=== PATIENT | female | born 1995 | race Caucasian/White ===

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

== ENCOUNTER 2017-06-16 17:04 | Emergency (ER) | payer MEDICAID ==
--- NOTE | 2017-06-16 19:33 | ED Physician Documentation ---
PD HPI ABD PAIN - Stated complaint Stated Complaint: N/V/ABD PX - Chief complaint Chief Complaint: Abd Pain - History obtained from History obtained from: Patient - History of Present Illness Timing - onset: How many days ago (8) Timing - duration: Days (8) Timing - details: Gradual onset, Still present, Waxing and waning Quality: Cramping, Aching, Pain Location: Epigastric, Periumbilical Radiation: Chest (some heartburn to chest with vomiting.). No: Lower back, Upper back Improved by: No: Eating, Vomiting Worsened by: Eating Associated symptoms: Nausea, Vomiting, Chest pain, Loss of appetite. No: Fever , Diarrhea, Constipation, Dysuria, Hematuria, Weight loss Similar symptoms before: Diagnosis (gastritis Dx but not improved with ranitidine and then changed to Prilosec yesterday. Rx Zofran without improvement.) Recently seen: Emergency Dept (few visits for IV fluids and meds.) Review of Systems Constitutional: denies: Fever, Chills Nose: denies: Rhinorrhea / runny nose, Congestion Throat: denies: Sore throat Respiratory: denies: Dyspnea, Cough GI: reports: Abdominal Pain (supraumbilical and epigastric), Nausea, Vomiting. denies: Abdominal Swelling, Diarrhea, Hematemesis : denies: Dysuria, Frequency, Discharge, Missed period Skin: denies: Rash Musculoskeletal: denies: Neck pain, Back pain Neurologic: reports: Generalized weakness. 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 : None HEENT: None Psych: None Musculoskeletal: None Derm: None - Past Surgical History Past Surgical History: No - Present Medications Home Medications: Ambulatory Orders Medication Instructions Recorded Confirmed Lidocaine Viscous 2% [Xylocaine 5 ml PO Q4H PRN #1 bottle 06/16/17 Viscous 2%] Metoclopramide [Reglan] 10 mg PO Q6H PRN #20 tablet 06/16/17 Omeprazole 20 mg PO BID 06/16/17 06/16/17 Promethazine Supp [Phenergan Supp] 25 mg [place] Q6H PRN #6 supp 06/16/17 Sucralfate 1 gm PO QID #20 tablet 06/16/17 Sulfamethox/Trimeth 800/160 1 tab PO BID 06/16/17 06/16/17 [Bactrim Ds] Ondansetron Odt [Zofran] 4 mg TL Q6H PRN #10 tablet 06/17/17 - Allergies Allergies/Adverse Reactions: Allergies Allergy/AdvReac Type Severity Reaction Status Date / Time No Known Drug Allergies Allergy Verified 06/16/17 17:16 - Social History Does the pt smoke?: No Smoking Status: Never smoker Does the pt drink ETOH?: No Does the pt have substance abuse?: No - Immunizations Immunizations are current?: Yes - POLST Patient has POLST: No PD ED PE NORMAL - Vitals Vital signs reviewed: Yes - General General: Alert and oriented X 3, Well developed/nourished - HEENT HEENT: PERRL (nonicteric), Ears normal, Pharynx benign. No: Moist mucous membranes - Neck Neck: Supple, no meningeal sign, No adenopathy - Cardiac Cardiac: RRR, No murmur - Respiratory Respiratory: Clear bilaterally - Abdomen Abdomen: Normal bowel sounds, Soft, Non distended, No organomegaly, Other ( tender epigastric area) - Female Female : Deferred - Rectal Rectal: Deferred - Back Back: No CVA TTP - Derm Derm: Normal color, Warm and dry - Extremities Extremities: Normal ROM s pain, No edema, No calf tenderness / cord - Neuro Neuro: Alert and oriented X 3, No motor deficit, Normal speech Results - Vitals Vitals: Oxygen O2 Source Room air - Labs Labs: Laboratory Tests 06/16/17 06/16/17 06/16/17 19:48 20:05 20:05 WBC 12.5 H RBC 4.99 Hgb 13.8 Hct 41.9 MCV 84.1 MCH 27.7 MCHC 33.0 RDW 15.3 H Plt Count 346 MPV 8.6 Neut # 8.7 H Lymph # 2.9 [place] # 0.7 Eos # 0.0 Baso # 0.1 Absolute Nucleated RBC 0.00 Nucleated RBCs 0.0 Sodium 138 Potassium 3.0 L Chloride 100 L Carbon Dioxide 25 Anion Gap 13.0 BUN 15 Creatinine 1.0 Estimated GFR (MDRD) 71 L Glucose 75 Calcium 9.8 Total Bilirubin 1.1 H AST 24 ALT 47 Alkaline Phosphatase 58 Total Protein 8.9 H Albumin 4.9 Globulin 4.0 Albumin/Globulin Ratio 1.2 Lipase 25 Urine Color Urine Clarity Urine pH Ur Specific [place] Urine Protein Urine Glucose (UA) Urine Ketones Urine Occult Blood Urine Nitrite Urine Bilirubin Urine Urobilinogen Ur Leukocyte Esterase Ur Microscopic Review Urine Culture Comments Urine HCG, Qual H. pylori IgG Antibody Negative 06/16/17 06/16/17 21:30 21:30 WBC RBC Hgb Hct MCV MCH MCHC RDW Plt Count MPV Neut # Lymph # [place] # Eos # Baso # Absolute Nucleated RBC Nucleated RBCs Sodium Potassium Chloride Carbon Dioxide Anion Gap BUN Creatinine Estimated GFR (MDRD) Glucose Calcium Total Bilirubin AST ALT Alkaline Phosphatase Total Protein Albumin Globulin Albumin/Globulin Ratio Lipase Urine Color YELLOW Urine Clarity CLEAR Urine pH 6.0 Ur Specific [place] 1.025 1.025 Urine Protein TRACE Urine Glucose (UA) NEGATIVE Urine Ketones >=80 H Urine Occult Blood NEGATIVE Urine Nitrite NEGATIVE Urine Bilirubin SMALL H Urine Urobilinogen 0.2 (NORMAL) Ur Leukocyte Esterase NEGATIVE Ur Microscopic Review NOT INDICATED Urine Culture Comments NOT INDICATED Urine HCG, Qual NEGATIVE H. pylori IgG Antibody PD MEDICAL DECISION MAKING - ED course Complexity details: reviewed old records, reviewed results, re-evaluated patient , considered differential (several visits to ED for persistent gastritis type pain and vomiting. Feels better with IV fluids meds, but then hurting and vomiting again. Has had labs. No imaging. ), d/w patient Departure - Departure Disposition: 01 Home, Self Care Clinical Impression: Vomiting Qualifiers: Vomiting type: unspecified Vomiting Intractability: non-intractable Nausea presence: with nausea Qualified Code(s): R11.2 - Nausea with vomiting, unspecified Abdominal pain Qualifiers: Abdominal location: epigastric Qualified Code(s): R10.13 - Epigastric pain Gastritis Qualifiers: Gastritis type: other gastritis Chronicity: acute Gastritis bleeding: without bleeding Qualified Code(s): K29.00 - Acute gastritis without bleeding Condition: Stable Record reviewed to determine appropriate education?: Yes Instructions: ED PUD Vs Gastritis Follow-Up: Estrella Mak ARNP [Primary Care Provider] - Prescriptions: Promethazine Supp [Phenergan Supp] 25 mg [place] Q6H PRN #6 supp PRN Reason: Nausea / Vomiting Metoclopramide [Reglan] 10 mg PO Q6H PRN #20 tablet PRN Reason: Nausea / Vomiting Sucralfate 1 gm PO QID #20 tablet Lidocaine Viscous 2% [Xylocaine Viscous 2%] 5 ml PO Q4H PRN #1 bottle PRN Reason: Pain Comments: Continue the ranitidine and also Prilosec you have been prescribed. Add sucralfate to coat the stomach 4 times a day for the next 5 days. Use promethazine suppository or Reglan tablet for nausea. You can use lidocaine with some antacid to help with stomach pain. Small frequent fluids and bland foods. Recheck with not improving over the next several days. Discharge Date/Time: 06/16/17 23:07
[2017-06-16] MEDS ORDERED: METOCLOPRAMIDE 10 MG/2 ML VIAL IVP STA (19:48)
[2017-06-16] MEDS ORDERED: FAMOTIDINE 20 MG/50 ML 50 ML IV ONE ×2 (19:48→20:15)
[2017-06-16] MEDS ORDERED: SODIUM CHLORIDE 0.9% 1,000 ML IV ONE ×3 (19:48→21:30)
[2017-06-16] MEDS ORDERED: MAG HYDROX/AL HYDROX/SIMETH 30 ML UDC PO STA (19:49)
[2017-06-16] MEDS ORDERED: LIDOCAINE VISCOUS 2% 15 ML UDC MM STA ×2 (19:49→22:07)
[2017-06-16] MEDS ORDERED: LIDOCAINE VISCOUS 2% 15 ML UDC MM ONE ×2 (20:14→22:11)
[2017-06-16] MEDS ORDERED: METOCLOPRAMIDE 10 MG/2 ML VIAL ONE (20:14)
[2017-06-16] MEDS ORDERED: MAG HYDROX/AL HYDROX/SIMETH 30 ML UDC ONE (20:14)
[2017-06-16 20:20] LABS: BASOPHILS # (AUTO) 0.1 10^3/uL (0.0-0.1); EOSINOPHILS % (AUTO) 0.2 %; HCT - HEMATOCRIT 41.9 % (37.0-47.0); HGB - HEMOGLOBIN 13.8 g/dL (12.0-16.0); LYMPHOCYTES # (AUTO) 2.9 10^3/uL (1.5-3.5); LYMPHOCYTES % (AUTO) 23.1 %; MEAN CORPUSCULAR HEMOGLOBIN 27.7 pg (27.0-31.0); MEAN CORPUSCULAR VOLUME 84.1 fL (81.0-99.0); MEAN PLATELET VOLUME 8.6 fL (7.9-10.8); MONOCYTES # (AUTO) 0.7 10^3/uL (0.0-1.0); MONOCYTES % (AUTO) 5.6 %; NEUTROPHILS # (AUTO) 8.7 10^3/uL (1.5-6.6); NEUTROPHILS % (AUTO) 70.1 %; RED BLOOD COUNT 4.99 10^6/uL (4.20-5.40); RED CELL DISTRIBUTION WIDTH 15.3 % (12.0-15.0); UNCORRECTED WHITE BLOOD COUNT 12.5 x10^3/uL; WHITE BLOOD COUNT 12.5 x10^3/uL (4.8-10.8)
[2017-06-16 20:35] LABS: ALBUMIN/GLOBULIN RATIO 1.2 (1.0-2.2); BILIRUBIN,TOTAL 1.1 mg/dL (0.2-1.0); CALCIUM 9.8 mg/dL (8.5-10.3); TOTAL PROTEIN 8.9 g/dL (6.7-8.2)
[2017-06-16 20:36] LABS: H. PYLORI IGG ANTIBODY Negative (Negative); HPYLORI NEG QC Negative (Negative); HPYLORI POS QC POSITIVE (Positive)
[2017-06-16] MEDS ORDERED: POTASSIUM CHLOR 10 MEQ/100 ML 100 ML IV ONE ×2 (21:06→21:19)
--- NOTE | 2017-06-16 21:16 | Ultrasound Preliminary Report ---
Exam: US ABDOMEN LIMITED IMPRESSION: Normal. No cholelithiasis or cholecystitis. [facility] S[facility] ID: [id number]
--- NOTE | 2017-06-16 21:18 | Ultrasound Report ---
EXAM: ABDOMEN ULTRASOUND LIMITED, RUQ EXAM DATE: 06/16/2017 09:00 PM. CLINICAL HISTORY: Upper abdomen pain with vomiting for 10 days. COMPARISON: None. TECHNIQUE: Real-time scanning was performed with static images obtained. FINDINGS: Liver: Normal in size and echotexture. 13.8 cm. Main portal vein flow: Hepatopetal. Gallbladder: Normal. No stones, wall thickening, or sonographic Arreola's sign. Biliary System: CBD measures 5 mm. No intrahepatic or extrahepatic ductal dilatation. Other: The visualized pancreas and right kidney are unremarkable. No free fluid. IMPRESSION: Normal. No cholelithiasis or cholecystitis. [facility] Referring Provider Line: [phone] SITE ID: [id number]
[2017-06-16 21:50] LABS: BILIRUBIN,URINE SMALL (NEGATIVE); UA CHARGE (STRIP ONLY) YES; UR CULTURE IF IND NOT INDICATED
[2017-06-16 21:51] LABS: HCG UR QUAL NEGATIVE
[2017-06-16] MEDS ORDERED: PROMETHAZINE 25 MG SUPP PR STA (22:07)
[2017-06-16] MEDS ORDERED: PROMETHAZINE 25 MG SUPP PR ONE (22:12)
[2017-06-16 22:59] VITALS: BP 127/80
== END 2017-06-16 23:07 | disposition home or self-care (01) ==
LOC: ED 17:04
DX: K29.00 Acute gastritis without bleeding (principal); R11.2 Nausea with vomiting, unspecified; R10.13 Epigastric pain
CPT/HCPCS: 36415; 76705; 80053; 81003; 81025; 83690; 85025; 87339; 96361; 96365; 96367; 96375; 99284; A9270; J8498; 81001; 87086

== ENCOUNTER 2017-06-17 15:55 | Emergency (ER) | payer MEDICAID ==
[2017-06-17] MEDS ORDERED: HALOPERIDOL 5 MG/ML VIAL IVP STA (16:53)
[2017-06-17] MEDS ORDERED: SODIUM CHLORIDE 0.9% 1,000 ML IV ONE ×2 (16:53)
--- NOTE | 2017-06-17 16:57 | ED Physician Documentation ---
PD HPI ABD PAIN - Stated complaint Stated Complaint: STOMACH PX - Chief complaint Chief Complaint: Abd Pain - History obtained from History obtained from: Patient - History of Present Illness Timing - onset: How many weeks ago (2) Timing - duration: Weeks (2) Timing - details: Gradual onset Pain level max: 5 Pain level now: 5 Quality: Aching, Pain Location: Epigastric Radiation: Other (non-radiating) Improved by: Vomiting Worsened by: Eating Associated symptoms: Nausea, Vomiting. No: Fever, Hematemesis, Diarrhea, Constipation, Melena, Hematochezia, Dysuria, Hematuria, Chest pain, Dizzy Similar symptoms before: Diagnosis (vomiting) Recently seen: Emergency Dept (yesterday for same) - Additional information Additional information: states smokes marijuana daily. Last used 1 week ago. 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 HEENT: None Psych: None Musculoskeletal: None Derm: None - Past Surgical History Past Surgical History: No - Present Medications Home Medications: Ambulatory Orders Medication Instructions Recorded Confirmed Lidocaine Viscous 2% [Xylocaine 5 ml PO Q4H PRN #1 bottle 06/16/17 Viscous 2%] Metoclopramide [Reglan] 10 mg PO Q6H PRN #20 tablet 06/16/17 Omeprazole 20 mg PO BID 06/16/17 06/16/17 Promethazine Supp [Phenergan Supp] 25 mg [place] Q6H PRN #6 supp 06/16/17 Sucralfate 1 gm PO QID #20 tablet 06/16/17 Sulfamethox/Trimeth 800/160 1 tab PO BID 06/16/17 06/16/17 [Bactrim Ds] Ondansetron Odt [Zofran] 4 mg TL Q6H PRN #10 tablet 06/17/17 - Allergies Allergies/Adverse Reactions: Allergies Allergy/AdvReac Type Severity Reaction Status Date / Time No Known Drug Allergies Allergy Verified 06/16/17 17:16 - Social History Does the pt smoke?: No Smoking Status: Never smoker Does the pt drink ETOH?: No Does the pt have substance abuse?: No - Immunizations Immunizations are current?: Yes - POLST Patient has POLST: No PD ED PE NORMAL - Vitals Vital signs reviewed: Yes - General General: Alert and oriented X 3, No acute distress, Well developed/nourished - HEENT HEENT: Moist mucous membranes - Neck Neck: Supple, no meningeal sign - Cardiac Cardiac: RRR, Strong equal pulses - Respiratory Respiratory: No respiratory distress, Clear bilaterally - Abdomen Abdomen: Soft, Non tender, Non distended - Back Back: No spinal TTP - Derm Derm: Warm and dry, No rash - Extremities Extremities: No edema, No calf tenderness / cord - Neuro Neuro: Alert and oriented X 3 - Psych Psych: Normal mood, Normal affect Results - Vitals Vitals: Vital Signs - 24 hr 06/17/17 06/17/17 06/17/17 15:57 17:54 19:13 Temperature 36.6 C Heart Rate 75 68 59 L Respiratory 18 18 15 Rate Blood Pressure 145/95 H 131/81 H 129/85 H O2 Saturation 99 100 100 06/17/17 20:55 Temperature Heart Rate 82 Respiratory 14 Rate Blood Pressure 131/76 H O2 Saturation 100 Oxygen O2 Source Room air - Labs Labs: Laboratory Tests 06/17/17 06/17/17 06/17/17 17:00 17:00 19:10 WBC 11.6 H RBC 4.86 Hgb 13.4 Hct 40.7 MCV 83.6 MCH 27.6 MCHC 33.0 RDW 15.1 H Plt Count 326 MPV 8.6 Neut # 8.8 H Lymph # 2.1 [place] # 0.7 Eos # 0.0 Baso # 0.1 Absolute Nucleated RBC 0.00 Nucleated RBCs 0.0 Sodium 135 Potassium 3.0 L Chloride 100 L Carbon Dioxide 22 Anion Gap 13.0 BUN 10 Creatinine 0.8 Estimated GFR (MDRD) 91 Glucose 86 Calcium 9.5 Total Bilirubin 1.4 H AST 20 ALT 40 Alkaline Phosphatase 62 Total Protein 8.7 H Albumin 4.8 Globulin 3.9 Albumin/Globulin Ratio 1.2 Lipase 29 Urine Color Urine Clarity Urine pH Ur Specific [place] Urine Protein Urine Glucose (UA) Urine Ketones Urine Occult Blood Urine Nitrite Urine Bilirubin Urine Urobilinogen Ur Leukocyte Esterase Ur Microscopic Review Urine Culture Comments Urine HCG, Qual Urine Opiates Screen NEGATIVE Ur Oxycodone Screen NEGATIVE Urine Methadone Screen NEGATIVE Ur Propoxyphene Screen NEGATIVE Ur Barbiturates Screen NEGATIVE Ur Tricyclics Screen NEGATIVE Ur Phencyclidine Scrn NEGATIVE Ur Amphetamine Screen NEGATIVE U Methamphetamines Scrn NEGATIVE U Benzodiazepines Scrn NEGATIVE Urine Cocaine Screen NEGATIVE U Cannabinoids Screen POSITIVE H 06/17/17 19:10 WBC RBC Hgb Hct MCV MCH MCHC RDW Plt Count MPV Neut # Lymph # [place] # Eos # Baso # Absolute Nucleated RBC Nucleated RBCs Sodium Potassium Chloride Carbon Dioxide Anion Gap BUN Creatinine Estimated GFR (MDRD) Glucose Calcium Total Bilirubin AST ALT Alkaline Phosphatase Total Protein Albumin Globulin Albumin/Globulin Ratio Lipase Urine Color YELLOW Urine Clarity CLEAR Urine pH 6.5 Ur Specific [place] <=1.005 Urine Protein NEGATIVE Urine Glucose (UA) NEGATIVE Urine Ketones 40 H Urine Occult Blood NEGATIVE Urine Nitrite NEGATIVE Urine Bilirubin NEGATIVE Urine Urobilinogen 0.2 (NORMAL) Ur Leukocyte Esterase NEGATIVE Ur Microscopic Review NOT INDICATED Urine Culture Comments NOT INDICATED Urine HCG, Qual NEGATIVE Urine Opiates Screen Ur Oxycodone Screen Urine Methadone Screen Ur Propoxyphene Screen Ur Barbiturates Screen Ur Tricyclics Screen Ur Phencyclidine Scrn Ur Amphetamine Screen U Methamphetamines Scrn U Benzodiazepines Scrn Urine Cocaine Screen U Cannabinoids Screen - Rads (name of study) CT abdomen and pelvis Radiology: Prelim report reviewed, EMP read contemporaneously, See rad report ( Normal CT abdomen and pelvis) PD MEDICAL DECISION MAKING - ED course Complexity details: reviewed old records, reviewed results, re-evaluated patient , considered differential, d/w patient, d/w family ED course: Patient is a 22-year-old female who presents to the emergency department with recurrent abdominal pain and vomiting. Appears most consistent with cannabinoid induced hyperemesis. Feels much better after Haldol and Ativan. Tolerating p.o. without difficulty. No acute findings on CT scan of the abdomen or pelvis. Potassium is slightly low, will have her recheck this with her doctor. She is well-appearing, nontoxic. Will have her refrain from marijuana use for a few weeks and see if this helps her symptoms. Patient counseled regarding signs and symptoms for which I believe and urgent re- evaluation would be necessary. Patient with good understanding of and agreement to plan and is comfortable going home at this time This document was made in part using voice recognition software. While efforts are made to proofread this document, sound alike and grammatical errors may occur. Departure - Departure Disposition: 01 Home, Self Care Clinical Impression: Cannabinoid hyperemesis syndrome Condition: Good Instructions: ED Nausea Vomiting Follow-Up: Estrella Mak ARNP [Primary Care Provider] - Within 1 week Prescriptions: Ondansetron Odt [Zofran] 4 mg TL Q6H PRN #10 tablet PRN Reason: Nausea / Vomiting Comments: Return if you worsen. Stop using marijuana and this should improve. Eat a bland diet and avoid caffeine for the next week. Discharge Date/Time: 06/17/17 21:04
[2017-06-17] MEDS ORDERED: HALOPERIDOL 5 MG/ML VIAL ONE (17:04)
[2017-06-17 17:11] LABS: BASOPHILS # (AUTO) 0.1 10^3/uL (0.0-0.1); BASOPHILS % (AUTO) 0.7 %; EOSINOPHILS % (AUTO) 0.1 %; HCT - HEMATOCRIT 40.7 % (37.0-47.0); HGB - HEMOGLOBIN 13.4 g/dL (12.0-16.0); LYMPHOCYTES # (AUTO) 2.1 10^3/uL (1.5-3.5); LYMPHOCYTES % (AUTO) 17.9 %; MEAN CORPUSCULAR HEMOGLOBIN 27.6 pg (27.0-31.0); MEAN CORPUSCULAR VOLUME 83.6 fL (81.0-99.0); MEAN PLATELET VOLUME 8.6 fL (7.9-10.8); MONOCYTES # (AUTO) 0.7 10^3/uL (0.0-1.0); MONOCYTES % (AUTO) 6.1 %; NEUTROPHILS # (AUTO) 8.8 10^3/uL (1.5-6.6); NEUTROPHILS % (AUTO) 75.2 %; RED BLOOD COUNT 4.86 10^6/uL (4.20-5.40); RED CELL DISTRIBUTION WIDTH 15.1 % (12.0-15.0); UNCORRECTED WHITE BLOOD COUNT 11.6 x10^3/uL; WHITE BLOOD COUNT 11.6 x10^3/uL (4.8-10.8)
[2017-06-17 17:24] LABS: ALBUMIN/GLOBULIN RATIO 1.2 (1.0-2.2); BILIRUBIN,TOTAL 1.4 mg/dL (0.2-1.0); CALCIUM 9.5 mg/dL (8.5-10.3); CREATININE 0.8 mg/dL (0.4-1.0); TOTAL PROTEIN 8.7 g/dL (6.7-8.2)
[2017-06-17] MEDS ORDERED: LORazepam 2 MG/ML SYRINGE IVP STA (17:42)
[2017-06-17] MEDS ORDERED: LORazepam 2 MG/ML SYRINGE ONE (17:49)
[2017-06-17] MEDS ORDERED: IOPAMIDOL-300 100 ML VIAL IVP ONE (18:21)
--- NOTE | 2017-06-17 18:53 | CT Preliminary Report ---
Exam: CT Abdomen/Pelvis W/ IMPRESSION: Normal abdomen and pelvis CT. [facility] SITE ID: [id number]
--- NOTE | 2017-06-17 18:55 | CT Report ---
EXAM: CT ABDOMEN AND PELVIS EXAM DATE: 06/17/2017 06:21 PM. CLINICAL HISTORY: Abd pain, vomiting. COMPARISONS: None. TECHNIQUE: Routine helical CT imaging was performed through the abdomen and pelvis. IV contrast: 100 cc Isovue-300. Enteric contrast: No. Reconstructions: Coronal and sagittal. In accordance with CT protocol optimization, one or more of the following dose reduction techniques w ere utilized for this exam: automated exposure control, adjustment of mA and/or KV based on patient s ize, or use of iterative reconstructive technique. FINDINGS: Lung Bases: Unremarkable. Liver: Subcentimeter hypodensity centered within segment 6 of the liver is too small to characterize. No suspicious hepatic abnormalities are seen. Gallbladder/Bile Ducts: Unremarkable. Spleen: Normal. Pancreas: Normal. Adrenal Glands: Normal. Kidneys: Normal. No masses or hydronephrosis. Peritoneal Cavity/Bowel: Normal. No free fluid, free air or adenopathy. No masses or acute inflammato ry process. No evidence of appendicitis. Pelvic Organs: Normal. The bladder and visualized pelvic organs are within normal limits. Vasculature: No aneurysms or other significant abnormality. Bones: No significant abnormality. Other: None. IMPRESSION: Normal abdomen and pelvis CT. [facility] Referring Provider Line: [phone] SITE ID: [id number]
[2017-06-17 19:18] LABS: BILIRUBIN,URINE NEGATIVE (NEGATIVE); PH,URINE 6.5 PH (5.0-7.5)
[2017-06-17 19:20] LABS: HCG UR QUAL NEGATIVE; UA CHARGE (STRIP ONLY) YES; UR CULTURE IF IND NOT INDICATED
[2017-06-17 20:56] VITALS: BP 131/76
== END 2017-06-17 21:04 | disposition home or self-care (01) ==
LOC: ED 15:55
DX: F12.988 Cannabis use, unspecified with other cannabis-induced disorder (principal); R11.10 Vomiting, unspecified
CPT/HCPCS: 36415; 74177; 80053; 80306; 81003; 81025; 83690; 85025; 96361; 96374; 96375; 99284; J2060; Q9967; 81001; 87086

== ENCOUNTER 2018-04-29 16:26 | Emergency (ER) | payer MEDICAID ==
[2018-04-29] MEDS ORDERED: LACTATED RINGERS 1,000 ML IV STA ×2 (17:06→17:57)
[2018-04-29] MEDS ORDERED: PROMETHAZINE INJ 25 MG in SODIUM CHLORIDE 0.9% 50 ML IV STA (17:06)
--- NOTE | 2018-04-29 17:09 | ED Physician Documentation ---
History of Present Illness - Stated complaint Stated Complaint: VOMITING/X 6 DAYS - Chief complaint Chief Complaint: General - History obtained from History obtained from: Patient, Family (dad) - History of Present Illness Timing: Other (She has had vomiting for 6 days which she thinks is due to a combination of pain related to her wisdom teeth coming in, her menses. She has been seen at hospitals twice, once at [place] and once at [facility], she thinks she still sick because she did not get IV fluids in the second visit. She does smoke marijuana daily but does not note relief from heat or hot shower. No abdominal pain or diarrhea. No recent travel or sick contacts.) Review of Systems Constitutional: reports: Fever, Chills, Fatigue Ears: denies: Ear pain Nose: denies: Rhinorrhea / runny nose, Congestion Throat: reports: Dental pain / toothache. denies: Sore throat GI: reports: Nausea, Vomiting. 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 : None HEENT: None Psych: None Musculoskeletal: None Derm: None - Past Surgical History Past Surgical History: No - Present Medications Home Medications: Ambulatory Orders Medication Instructions Recorded Confirmed Lidocaine Viscous 2% [Xylocaine 5 ml PO Q4H PRN #1 bottle 06/16/17 Viscous 2%] Metoclopramide [Reglan] 10 mg PO Q6H PRN #20 tablet 06/16/17 Omeprazole 20 mg PO BID 06/16/17 06/16/17 Promethazine Supp [Phenergan Supp] 25 mg [place] Q6H PRN #6 supp 06/16/17 Sucralfate 1 gm PO QID #20 tablet 06/16/17 Sulfamethox/Trimeth 800/160 1 tab PO BID 06/16/17 06/16/17 [Bactrim Ds] Ondansetron Odt [Zofran] 4 mg TL Q6H PRN #10 tablet 06/17/17 Amoxicillin 500 mg PO TID #30 capsule 04/29/18 Ondansetron HCl [Zofran] 4 mg PO Q6H PRN #10 tablet 04/29/18 Promethazine [Phenergan] 25 - 50 mg PO Q6H PRN #15 tab 04/29/18 - Allergies Allergies/Adverse Reactions: Allergies Allergy/AdvReac Type Severity Reaction Status Date / Time No Known Drug Allergies Allergy Verified 06/16/17 17:16 - Social History Does the pt smoke?: No Smoking Status: Never smoker Does the pt drink ETOH?: No Does the pt have substance abuse?: No - Immunizations Immunizations are current?: Yes - POLST Patient has POLST: No PD ED PE NORMAL - Vitals Vital signs reviewed: Yes - General General: Alert and oriented X 3, No acute distress - HEENT HEENT: Pharynx benign, Other (The upper and left lower wisdom teeth are tender.) - Neck Neck: Supple, no meningeal sign, No bony TTP - Cardiac Cardiac: RRR, No murmur - Respiratory Respiratory: No respiratory distress, Clear bilaterally - Abdomen Abdomen: Normal bowel sounds, Soft, Non tender - Back Back: No CVA TTP, No spinal TTP - Derm Derm: No rash - Neuro Neuro: Alert and oriented X 3, Normal speech - Psych Psych: Normal mood, Normal affect Results - Vitals Vitals: Vital Signs - 24 hr 04/29/18 04/29/18 04/29/18 16:47 18:23 20:14 Temperature 37.7 C H 37.1 C Heart Rate 85 63 85 Respiratory 20 16 16 Rate Blood Pressure 157/99 H 134/85 H 133/78 H O2 Saturation 100 99 95 Oxygen O2 Source Room air - Labs Labs: Laboratory Tests 04/29/18 04/29/18 04/29/18 17:20 17:20 17:20 WBC 11.4 H RBC 4.86 Hgb 14.3 Hct 42.6 MCV 87.6 MCH 29.4 MCHC 33.6 RDW 13.7 Plt Count 340 MPV 8.4 Neut # (Auto) 9.7 H Lymph # (Auto) 1.2 L [place] # (Auto) 0.4 Eos # (Auto) 0.0 Baso # (Auto) 0.0 Absolute Nucleated RBC 0.00 Nucleated RBC % 0.0 Sodium 137 Potassium 3.1 L Chloride 100 L Carbon Dioxide 24 Anion Gap 13.0 BUN 12 Creatinine 0.7 Estimated GFR (MDRD) 107 Glucose 97 Calcium 9.9 Total Bilirubin 1.2 H AST 36 ALT 66 H Alkaline Phosphatase 64 Total Protein 9.3 H Albumin 4.7 Globulin 4.6 H Albumin/Globulin Ratio 1.0 Lipase 25 Urine Color Urine Clarity Urine pH Ur Specific [place] Urine Protein Urine Glucose (UA) Urine Ketones Urine Occult Blood Urine Nitrite Urine Bilirubin Urine Urobilinogen Ur Leukocyte Esterase Ur Microscopic Review Urine Culture Comments Urine HCG, Qual Infectious [place] Assay NEGATIVE 04/29/18 18:00 WBC RBC Hgb Hct MCV MCH MCHC RDW Plt Count MPV Neut # (Auto) Lymph # (Auto) [place] # (Auto) Eos # (Auto) Baso # (Auto) Absolute Nucleated RBC Nucleated RBC % Sodium Potassium Chloride Carbon Dioxide Anion Gap BUN Creatinine Estimated GFR (MDRD) Glucose Calcium Total Bilirubin AST ALT Alkaline Phosphatase Total Protein Albumin Globulin Albumin/Globulin Ratio Lipase Urine Color YELLOW Urine Clarity CLEAR Urine pH 6.0 Ur Specific [place] 1.010 Urine Protein NEGATIVE Urine Glucose (UA) NEGATIVE Urine Ketones 40 H Urine Occult Blood NEGATIVE Urine Nitrite NEGATIVE Urine Bilirubin NEGATIVE Urine Urobilinogen 0.2 (NORMAL) Ur Leukocyte Esterase NEGATIVE Ur Microscopic Review NOT INDICATED Urine Culture Comments NOT INDICATED Urine HCG, Qual NEGATIVE Infectious [place] Assay - Rads (name of study) Right upper quadrant ultrasound Radiology: EMP read contemporaneously (Normal except for a simple hepatic cyst) PD MEDICAL DECISION MAKING - ED course ED course: 22-year-old with 6 days of vomiting which could be an exacerbation of previously diagnosed cyclic vomiting syndrome, pain related to dental issues or menses, or cannabinoid hyperemesis although she does not have some of the classic findings of that but does smoke marijuana daily. She is feeling better after IV fluids and antiemetics here and her potassium was repleted IV. She did have mild elevation in her liver enzymes raising potentially the possibility of mono or a biliary etiology but her Monospot and right upper quadrant ultrasound were negative. I suspect the fevers are from her dental issue which she is treated with antibiotics for. - Sepsis Event Vital Signs: Vital Signs - 24 hr 04/29/18 04/29/18 04/29/18 16:47 18:23 20:14 Temperature 37.7 C H 37.1 C Heart Rate 85 63 85 Respiratory 20 16 16 Rate Blood Pressure 157/99 H 134/85 H 133/78 H O2 Saturation 100 99 95 Oxygen O2 Source Room air Departure - Departure Disposition: 01 Home, Self Care Clinical Impression: Pain, dental Vomiting Qualifiers: Vomiting type: unspecified Vomiting Intractability: non-intractable Nausea presence: with nausea Qualified Code(s): R11.2 - Nausea with vomiting, unspecified Abdominal pain Qualifiers: Abdominal location: epigastric Qualified Code(s): R10.13 - Epigastric pain Condition: Good Record reviewed to determine appropriate education?: Yes Instructions: ED Nausea Vomiting Prescriptions: Amoxicillin 500 mg PO TID #30 capsule Ondansetron HCl [Zofran] 4 mg PO Q6H PRN #10 tablet PRN Reason: Nausea / Vomiting Promethazine [Phenergan] 25 - 50 mg PO Q6H PRN #15 tab PRN Reason: Nausea / Vomiting Comments: Call your doctor to arrange a follow-up appointment, make the next available appointment. In the interim, return anytime if worse or if new symptoms develop. Discharge Date/Time: 04/29/18 20:14
[2018-04-29 17:29] LABS: BASOPHILS % (AUTO) 0.2 %; HGB - HEMOGLOBIN 14.3 g/dL (12.0-16.0); LYMPHOCYTES # (AUTO) 1.2 10^3/uL (1.5-3.5); LYMPHOCYTES % (AUTO) 10.6 %; MEAN CORPUSCULAR HEMOGLOBIN 29.4 pg (27.0-31.0); MEAN CORPUSCULAR HGB CONC 33.6 g/dL (32.0-36.0); MEAN CORPUSCULAR VOLUME 87.6 fL (81.0-99.0); MEAN PLATELET VOLUME 8.4 fL (7.9-10.8); MONOCYTES # (AUTO) 0.4 10^3/uL (0.0-1.0); MONOCYTES % (AUTO) 3.6 %; NEUTROPHILS # (AUTO) 9.7 10^3/uL (1.5-6.6); NEUTROPHILS % (AUTO) 85.6 %; PLT - PLATELET COUNT 340 10^3/uL (130-450); RED BLOOD COUNT 4.86 10^6/uL (4.20-5.40); RED CELL DISTRIBUTION WIDTH 13.7 % (12.0-15.0); WHITE BLOOD COUNT 11.4 x10^3/uL (4.8-10.8)
[2018-04-29 17:41] LABS: ALBUMIN 4.7 g/dL (3.2-5.5); BILIRUBIN,TOTAL 1.2 mg/dL (0.2-1.0); CALCIUM 9.9 mg/dL (8.5-10.3); CREATININE 0.7 mg/dL (0.4-1.0); TOTAL PROTEIN 9.3 g/dL (6.7-8.2)
[2018-04-29] MEDS ORDERED: POTASSIUM CHLOR 10 MEQ/100 ML 10 MEQ/100 ML BAG IV ONE (17:57)
[2018-04-29 18:11] LABS: BILIRUBIN,URINE NEGATIVE (NEGATIVE); GLUCOSE, URINE (UA) NEGATIVE (NEGATIVE); KETONES,URINE (UA) 40 mg/dL (NEGATIVE); LEUKOCYTE ESTERASE, URINE NEGATIVE (NEGATIVE); NITRITE,URINE NEGATIVE (NEGATIVE); OCCULT BLOOD,URINE NEGATIVE (NEGATIVE); PROTEIN,URINE NEGATIVE (NEGATIVE); UROBILINOGEN,URINE 0.2 (NORMAL) E.U./dL (NORMAL)
[2018-04-29 18:16] LABS: CLARITY,URINE CLEAR (CLEAR); HCG UR QUAL NEGATIVE
--- NOTE | 2018-04-29 19:33 | Ultrasound Report ---
EXAM: ABDOMEN ULTRASOUND LIMITED, RUQ EXAM DATE: 04/29/2018 07:18 PM. CLINICAL HISTORY: Vomiting, elevated liver enz. COMPARISON: None. TECHNIQUE: Real-time scanning was performed with static images obtained. FINDINGS: Liver: Normal in size and echotexture. 13.8 cm. Main portal vein flow: Hepatopetal. 1.3 cm simple kamilah earing right hepatic lobe cyst. Gallbladder: No stones, wall thickening, or sonographic Arreola's sign. Biliary System: CBD measures 3 mm. No intrahepatic or extrahepatic ductal dilatation. Other: Right kidney measures 12.4 cm without hydronephrosis. IMPRESSION: No acute sonographic abnormalities. [facility] Referring Provider Line: [phone] SITE ID: [id number]
--- NOTE | 2018-04-29 19:33 | Ultrasound Preliminary Report ---
Exam: US ABDOMEN LIMITED IMPRESSION: No acute sonographic abnormalities. [facility] SITE ID: [id number]
[2018-04-29] MEDS ORDERED: cefTRIAXone 1 GM VIAL IVP STA (19:42)
[2018-04-29] MEDS ORDERED: HALOPERIDOL 5 MG/ML VIAL IVP ONE (19:42)
[2018-04-29 20:15] VITALS: BP 133/78
== END 2018-04-29 20:14 | disposition home or self-care (01) ==
LOC: ED 16:26
DX: K08.89 Other specified disorders of teeth and supporting structures (principal); R11.2 Nausea with vomiting, unspecified; R10.13 Epigastric pain; K76.89 Other specified diseases of liver
CPT/HCPCS: 36415; 76705; 80053; 81003; 81025; 83690; 85025; 86308; 96365; 96368; 96375; 99283; J7040; J7120; 81001; 82728; 87086

== ENCOUNTER 2018-05-02 09:07 | Emergency (ER) | payer MEDICAID ==
--- NOTE | 2018-05-02 09:56 | ED Physician Documentation ---
PD HPI NVD - Stated complaint Stated Complaint: N/V - Chief complaint Chief Complaint: General - History obtained from History obtained from: Patient - History of Present Illness Timing - onset: How many days ago Timing - duration: Days Timing - details: Gradual onset (has had vomiting and nausea ften anyway, but was on abx the past couple of days for ear infection and feels her vomiting is worse from the med.), Waxing and waning Associated symptoms: No: Fever, Abdominal pain Contributing factors: Recent antibiotics. No: Sick contact, Bad food, Travel Similar symptoms before: No diagnosis (repetitive vomiting episodes without obvious cause.) Review of Systems Constitutional: denies: Fever, Chills Nose: denies: Rhinorrhea / runny nose, Congestion Throat: denies: Sore throat Respiratory: denies: Cough GI: reports: Nausea, Vomiting. 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 : None HEENT: None Psych: None Musculoskeletal: None Derm: None - Past Surgical History Past Surgical History: No - Present Medications Home Medications: Ambulatory Orders Medication Instructions Recorded Confirmed Lidocaine Viscous 2% [Xylocaine 5 ml PO Q4H PRN #1 bottle 06/16/17 Viscous 2%] Metoclopramide [Reglan] 10 mg PO Q6H PRN #20 tablet 06/16/17 Omeprazole 20 mg PO BID 06/16/17 06/16/17 Promethazine Supp [Phenergan Supp] 25 mg NM Q6H PRN #6 supp 06/16/17 Sucralfate 1 gm PO QID #20 tablet 06/16/17 Sulfamethox/Trimeth 800/160 1 tab PO BID 06/16/17 06/16/17 [Bactrim Ds] Ondansetron Odt [Zofran] 4 mg TL Q6H PRN #10 tablet 06/17/17 Amoxicillin 500 mg PO TID #30 capsule 04/29/18 Ondansetron HCl [Zofran] 4 mg PO Q6H PRN #10 tablet 04/29/18 Promethazine [Phenergan] 25 - 50 mg PO Q6H PRN #15 tab 04/29/18 Famotidine [Pepcid] 20 mg PO ONCE #30 tablet 05/02/18 Lidocaine Viscous 2% [Xylocaine 5 ml PO Q4H PRN #1 bottle 05/02/18 Viscous 2%] Promethazine Supp [Phenergan Supp] 25 mg NM Q6H PRN #5 supp 05/02/18 - Allergies Allergies/Adverse Reactions: Allergies Allergy/AdvReac Type Severity Reaction Status Date / Time No Known Drug Allergies Allergy Verified 06/16/17 17:16 - Social History Does the pt smoke?: No Smoking Status: Never smoker Does the pt drink ETOH?: No Does the pt have substance abuse?: No - Immunizations Immunizations are current?: Yes - POLST Patient has POLST: No PD ED PE NORMAL - Vitals Vital signs reviewed: Yes - General General: Alert and oriented X 3, Well developed/nourished - HEENT HEENT: Moist mucous membranes, Pharynx benign - Neck Neck: Supple, no meningeal sign, No adenopathy - Cardiac Cardiac: RRR, No murmur - Respiratory Respiratory: Clear bilaterally - Abdomen Abdomen: Normal bowel sounds, Soft, Non distended, No organomegaly, Other ( tender epigastric area) - Female Female : Deferred - Rectal Rectal: Deferred - Derm Derm: Normal color, Warm and dry - Extremities Extremities: No tenderness to palpate, Normal ROM s pain - Neuro Neuro: Alert and oriented X 3, No motor deficit, Normal speech Results - Vitals Vitals: Oxygen O2 Source Room air - Labs Labs: Laboratory Tests 05/02/18 05/02/18 10:45 10:50 Sodium 133 L Potassium 3.0 L Chloride 96 L Carbon Dioxide 27 Anion Gap 10.0 BUN 11 Creatinine 0.7 Estimated GFR (MDRD) 107 Glucose 97 Calcium 9.5 Magnesium 2.2 Total Bilirubin 1.1 H AST 18 ALT 35 Alkaline Phosphatase 62 Total Protein 9.1 H Albumin 4.8 Globulin 4.3 H Albumin/Globulin Ratio 1.1 Lipase 25 Urine Color YELLOW Urine Clarity CLOUDY Urine pH 7.0 Ur Specific [place] 1.010 Urine Protein NEGATIVE Urine Glucose (UA) NEGATIVE Urine Ketones 40 H Urine Occult Blood NEGATIVE Urine Nitrite NEGATIVE Urine Bilirubin NEGATIVE Urine Urobilinogen 0.2 (NORMAL) Ur Leukocyte Esterase NEGATIVE Urine RBC None Seen Urine WBC 0-3 Ur Squamous Epith Cells MANY Squamous H Amorphous Sediment Marked Urine Bacteria Many H Ur Microscopic Review INDICATED Urine Culture Comments NOT INDICATED Urine HCG, Qual NEGATIVE PD MEDICAL DECISION MAKING - ED course Complexity details: reviewed old records, reviewed results, re-evaluated patient (improved with symptoms), considered differential (seems cyclic vomiting by history but could have element of side effects to abx. With the vommiting, likely has some gastritis. She did feel better with antiemetics and then GI cocktail. ), d/w patient - Sepsis Event Vital Signs: Oxygen O2 Source Room air Departure - Departure Disposition: 01 Home, Self Care Clinical Impression: Vomiting Qualifiers: Vomiting type: unspecified Vomiting Intractability: intractable Nausea presence : with nausea Qualified Code(s): R11.2 - Nausea with vomiting, unspecified Abdominal pain Qualifiers: Abdominal location: generalized Qualified Code(s): R10.84 - Generalized abdominal pain Gastritis Qualifiers: Gastritis type: unspecified gastritis Chronicity: acute Gastritis bleeding: without bleeding Qualified Code(s): K29.00 - Acute gastritis without bleeding Condition: Stable Record reviewed to determine appropriate education?: Yes Instructions: ED Gastritis, ED Nausea Vomiting Prescriptions: Famotidine [Pepcid] 20 mg PO ONCE #30 tablet Lidocaine Viscous 2% [Xylocaine Viscous 2%] 5 ml PO Q4H PRN #1 bottle PRN Reason: Pain Promethazine Supp [Phenergan Supp] 25 mg NM Q6H PRN #5 supp PRN Reason: Nausea / Vomiting Comments: Can hold your oral antibiotics for today as the IV dose will continue you until tomorrow. Start famotidine daily as he may have some gastritis which is irritating her stomach and leading to the vomiting episodes more easily. Small frequent fluids and bland food. Use your nausea medicines at home. Add suppository if needed for vomiting. Antacids with or without lidocaine if needed for the heartburn you get. Follow-up with your primary care. Discharge Date/Time: 05/02/18 14:18
[2018-05-02] MEDS ORDERED: SODIUM CHLORIDE 0.9% 1,000 ML IV ONE ×2 (10:22→10:52)
[2018-05-02] MEDS ORDERED: FAMOTIDINE 20 MG/50 ML 50 ML IV ONE (10:22)
[2018-05-02] MEDS ORDERED: cefTRIAXone 1 GM VIAL IVP STA (10:22)
[2018-05-02] MEDS ORDERED: ONDANSETRON 4 MG/2 ML VIAL IVP STA (10:22)
[2018-05-02] MEDS ORDERED: HALOPERIDOL 5 MG/ML VIAL IVP ONE (10:22)
[2018-05-02] MEDS ORDERED: KETOROLAC 60 MG/2 ML VIAL IVP STA (10:23)
[2018-05-02 10:57] LABS: BILIRUBIN,URINE NEGATIVE (NEGATIVE); GLUCOSE, URINE (UA) NEGATIVE (NEGATIVE); KETONES,URINE (UA) 40 mg/dL (NEGATIVE); LEUKOCYTE ESTERASE, URINE NEGATIVE (NEGATIVE); NITRITE,URINE NEGATIVE (NEGATIVE); OCCULT BLOOD,URINE NEGATIVE (NEGATIVE); PROTEIN,URINE NEGATIVE (NEGATIVE); UROBILINOGEN,URINE 0.2 (NORMAL) E.U./dL (NORMAL)
[2018-05-02 10:59] LABS: CLARITY,URINE CLOUDY (CLEAR)
[2018-05-02 11:00] LABS: HCG UR QUAL NEGATIVE
[2018-05-02 11:11] LABS: AMORPHOUS SEDIMENT,UR Marked /LPF; BACTERIA,URINE Many /HPF (None Seen); RBC,URINE None Seen /HPF (0-5); SQUAMOUS EPITHELIAL CELL,UR MANY Squamous (<= Few)
[2018-05-02 11:11] LABS: ALBUMIN 4.8 g/dL (3.2-5.5); ALBUMIN/GLOBULIN RATIO 1.1 (1.0-2.2); BILIRUBIN,TOTAL 1.1 mg/dL (0.2-1.0); CALCIUM 9.5 mg/dL (8.5-10.3); CREATININE 0.7 mg/dL (0.4-1.0); MAGNESIUM 2.2 mg/dL (1.7-2.8); TOTAL PROTEIN 9.1 g/dL (6.7-8.2)
[2018-05-02] MEDS ORDERED: POTASSIUM CHLOR 10 MEQ/100 ML 10 MEQ/100 ML BAG IV ONE (11:42)
[2018-05-02] MEDS ORDERED: MAG HYDROX/AL HYDROX/SIMETH 30 ML UDC PO STA (12:36)
[2018-05-02 14:19] VITALS: BP 130/88
== END 2018-05-02 14:18 | disposition home or self-care (01) ==
LOC: ED 09:07
DX: R11.2 Nausea with vomiting, unspecified (principal); R10.84 Generalized abdominal pain; K29.00 Acute gastritis without bleeding
CPT/HCPCS: 36415; 80053; 81001; 81025; 83690; 83735; 96365; 96366; 96375; 99283; 99284; A9270; 81003; 87086

== ENCOUNTER 2018-05-03 22:03 | Emergency (ER) | payer MEDICAID ==
--- NOTE | 2018-05-04 01:41 | ED Physician Documentation ---
PD HPI ABD PAIN - Stated complaint Stated Complaint: VOMITING/CONSTIPATED - Chief complaint Chief Complaint: Abd Pain - History obtained from History obtained from: Patient - History of Present Illness Timing - onset: How many days ago (10) Timing - details: Abrupt onset Quality: Pain Location: All over / everywhere Improved by: No: Eating, Laying still, Vomiting, BM, Position, Meds Worsened by: Eating Associated symptoms: Nausea, Vomiting, Constipation. No: Fever Similar symptoms before: No diagnosis Recently seen: Emergency Dept - Additional information Additional information: fifth ED visit in 8 days for similar c/o (third to [facility], with visit to ED and [facility] ED). no diagnosis achieved despite testing. she c/o nausea, vomiting x 10 days. she says she hasnt kept anything down, including sips of water, for ten consecutive days. she also gets episodic abdominal cramping pains. she had similar symptoms last May, suspected CVS, possible Cannabis hyperemesis. she has been prescribed various medications including viscous lidocaine and antinauseants, but hasnt been able to keep them down, either. recently prescribed phenergan suppositories, but did not fill this rx. she also saw PMD yesterday for constipation, was told to try miralax, but, again, she says she cant keep it down. 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 HEENT: None Psych: None Musculoskeletal: None Derm: None - Past Surgical History Past Surgical History: No - Present Medications Home Medications: Ambulatory Orders Medication Instructions Recorded Confirmed Lidocaine Viscous 2% [Xylocaine 5 ml PO Q4H PRN #1 bottle 06/16/17 Viscous 2%] Metoclopramide [Reglan] 10 mg PO Q6H PRN #20 tablet 06/16/17 Omeprazole 20 mg PO BID 06/16/17 06/16/17 Promethazine Supp [Phenergan Supp] 25 mg [place] Q6H PRN #6 supp 06/16/17 Sucralfate 1 gm PO QID #20 tablet 07/25/17 Sulfamethox/Trimeth 800/160 1 tab PO BID 06/16/17 06/16/17 [Bactrim Ds] Ondansetron Odt [Zofran] 4 mg TL Q6H PRN #10 tablet 06/17/17 Amoxicillin 500 mg PO TID #30 capsule 04/29/18 Ondansetron HCl [Zofran] 4 mg PO Q6H PRN #10 tablet 04/29/18 Promethazine [Phenergan] 25 - 50 mg PO Q6H PRN #15 tab 04/29/18 Famotidine [Pepcid] 20 mg PO ONCE #30 tablet 05/02/18 Lidocaine Viscous 2% [Xylocaine 5 ml PO Q4H PRN #1 bottle 05/02/18 Viscous 2%] Promethazine Supp [Phenergan Supp] 25 mg [place] Q6H PRN #5 supp 05/02/18 - Allergies Allergies/Adverse Reactions: Allergies Allergy/AdvReac Type Severity Reaction Status Date / Time No Known Drug Allergies Allergy Verified 05/03/18 23:52 - Social History Does the pt smoke?: No Smoking Status: Never smoker Does the pt drink ETOH?: No Does the pt have substance abuse?: No - Immunizations Immunizations are current?: Yes - POLST Patient has POLST: No PD ED PE NORMAL - Vitals Vital signs reviewed: Yes - General General: Alert and oriented X 3, No acute distress, Well developed/nourished - HEENT HEENT: Other (pasty/tacky mucous membranes) - Neck Neck: Supple, no meningeal sign - Cardiac Cardiac: RRR, No murmur - Respiratory Respiratory: No respiratory distress, Clear bilaterally - Back Back: No CVA TTP - Derm Derm: Normal color, Warm and dry - Extremities Extremities: No edema PD ED PE EXPANDED - Abdomen Abdomen: Tender to palpation, Periumbilical. No: Rebound, Guarding Results - Vitals Vitals: Oxygen O2 Source Room air - Labs Labs: Laboratory Tests 05/04/18 05/04/18 02:13 02:13 WBC 11.6 H RBC 4.49 Hgb 13.2 Hct 39.7 MCV 88.5 MCH 29.5 MCHC 33.3 RDW 13.6 Plt Count 285 MPV 8.6 Neut # (Auto) 7.8 H Lymph # (Auto) 3.0 [place] # (Auto) 0.7 Eos # (Auto) 0.0 Baso # (Auto) 0.1 Absolute Nucleated RBC 0.01 Nucleated RBC % 0.1 Sodium 136 Potassium 3.0 L Chloride 100 L Carbon Dioxide 23 Anion Gap 13.0 BUN 12 Creatinine 0.7 Estimated GFR (MDRD) 107 Glucose 88 Calcium 9.1 Total Bilirubin 1.2 H AST 18 ALT 27 Alkaline Phosphatase 54 Total Protein 8.1 Albumin 4.2 Globulin 3.9 Albumin/Globulin Ratio 1.1 Lipase 24 PD MEDICAL DECISION MAKING - ED course Complexity details: reviewed old records, reviewed results, re-evaluated patient , considered differential, d/w patient ED course: does not appear to be dehydrated on exam despite her description of keeping no fluids or solids down for ten consecutive days. UA from recent, previous visit ( 2 days ago) had spec. grav. of 1.010. mild hypokalemia tonight is unchanged from previous (and will not address this tonight, as PO potassium can be irritative to stomach). bun/cr normal, arguing against any serious dehydration. she does appear to have pasty/tacky mucous membranes, and thus could be mildly dehydrated, given IV fluids and IV phenergan, and on reevaluation, she has moist mucous membranes, reports feeling well enough to go home, requests discharge. I encouraged follow up as soon as possible and that she should discuss other testing options, particularly upper endoscopy, with her PMD. - Sepsis Event Vital Signs: Oxygen O2 Source Room air Departure - Departure Disposition: 01 Home, Self Care Clinical Impression: Vomiting Qualifiers: Vomiting type: unspecified Vomiting Intractability: non-intractable Nausea presence: with nausea Qualified Code(s): R11.2 - Nausea with vomiting, unspecified Abdominal pain Qualifiers: Abdominal location: generalized Qualified Code(s): R10.84 - Generalized abdominal pain Condition: Good Instructions: ED Nausea Vomiting Follow-Up: [facility] [Provider Group] Panda Smith MD [Provider Admit Priv/Credential] - Discharge Date/Time: 05/04/18 05:43
[2018-05-04] MEDS ORDERED: PROMETHAZINE INJ 25 MG in SODIUM CHLORIDE 0.9% 50 ML IV STA (01:58)
[2018-05-04] MEDS ORDERED: SODIUM CHLORIDE 0.9% 1,000 ML IV STA (01:58)
[2018-05-04 02:24] LABS: BASOPHILS # (AUTO) 0.1 10^3/uL (0.0-0.1); BASOPHILS % (AUTO) 0.5 %; EOSINOPHILS % (AUTO) 0.2 %; HGB - HEMOGLOBIN 13.2 g/dL (12.0-16.0); LYMPHOCYTES % (AUTO) 25.6 %; MEAN CORPUSCULAR HEMOGLOBIN 29.5 pg (27.0-31.0); MEAN CORPUSCULAR HGB CONC 33.3 g/dL (32.0-36.0); MEAN CORPUSCULAR VOLUME 88.5 fL (81.0-99.0); MEAN PLATELET VOLUME 8.6 fL (7.9-10.8); MONOCYTES # (AUTO) 0.7 10^3/uL (0.0-1.0); MONOCYTES % (AUTO) 6.2 %; NEUTROPHILS # (AUTO) 7.8 10^3/uL (1.5-6.6); NEUTROPHILS % (AUTO) 67.5 %; PLT - PLATELET COUNT 285 10^3/uL (130-450); RED BLOOD COUNT 4.49 10^6/uL (4.20-5.40); RED CELL DISTRIBUTION WIDTH 13.6 % (12.0-15.0); WHITE BLOOD COUNT 11.6 x10^3/uL (4.8-10.8)
[2018-05-04 02:30] LABS: ALBUMIN 4.2 g/dL (3.2-5.5); ALBUMIN/GLOBULIN RATIO 1.1 (1.0-2.2); BILIRUBIN,TOTAL 1.2 mg/dL (0.2-1.0); CALCIUM 9.1 mg/dL (8.5-10.3); CREATININE 0.7 mg/dL (0.4-1.0); TOTAL PROTEIN 8.1 g/dL (6.7-8.2)
[2018-05-04 05:43] VITALS: BP 113/69
== END 2018-05-04 05:43 | disposition home or self-care (01) ==
LOC: ED 22:03
DX: R11.2 Nausea with vomiting, unspecified (principal); R10.84 Generalized abdominal pain
CPT/HCPCS: 36415; 80053; 83690; 85025; 96365; 99283; J7040

== ENCOUNTER 2019-03-24 14:45 | Emergency (ER) | payer SELFPAY ==
[2019-03-24 15:56] LABS: BASOPHILS % (AUTO) 0.4 %; HGB - HEMOGLOBIN 15.3 g/dL (12.0-16.0); LYMPHOCYTES # (AUTO) 1.4 10^3/uL (1.5-3.5); LYMPHOCYTES % (AUTO) 11.8 %; MEAN CORPUSCULAR HEMOGLOBIN 28.8 pg (27.0-31.0); MEAN CORPUSCULAR HGB CONC 33.4 g/dL (32.0-36.0); MEAN CORPUSCULAR VOLUME 86.3 fL (81.0-99.0); MEAN PLATELET VOLUME 8.9 fL (7.9-10.8); MONOCYTES # (AUTO) 0.2 10^3/uL (0.0-1.0); NEUTROPHILS # (AUTO) 10.1 10^3/uL (1.5-6.6); NEUTROPHILS % (AUTO) 85.8 %; PLT - PLATELET COUNT 295 10^3/uL (130-450); RED BLOOD COUNT 5.31 10^6/uL (4.20-5.40); RED CELL DISTRIBUTION WIDTH 13.7 % (12.0-15.0); WHITE BLOOD COUNT 11.8 x10^3/uL (4.8-10.8)
[2019-03-24] MEDS ORDERED: diphenhydrAMINE INJ 50 MG/ML VIAL IVP STA (15:56)
[2019-03-24] MEDS ORDERED: HALOPERIDOL 5 MG/ML VIAL IVP STA (15:56)
[2019-03-24] MEDS ORDERED: SODIUM CHLORIDE 0.9% 1,000 ML IV ONE (15:56)
--- NOTE | 2019-03-24 15:59 | ED Physician Documentation ---
History of Present Illness - Stated complaint Stated Complaint: FEMALE /VOMITING - Chief complaint Chief Complaint: General - History obtained from History obtained from: Patient, Family - History of Present Illness Timing: How many days ago (2) Pain level max: 8 Pain level now: 6 - Additonal information Additional information: epigastric abd pain, vomiting for past 2 days. IUD inserted 2 days, but states it was stuck in the cervix, so it was removed. Does use cannabis daily. Has had similar symptoms in the past. No lower abd pain currently. No fevers. Not . Nothing makes it better or worse. 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 : None HEENT: None Psych: None Musculoskeletal: None Derm: None - Past Surgical History Past Surgical History: No - Present Medications Home Medications: Ambulatory Orders Medication Instructions Recorded Confirmed Lidocaine Viscous 2% [Xylocaine 5 ml PO Q4H PRN #1 bottle 06/16/17 Viscous 2%] Metoclopramide [Reglan] 10 mg PO Q6H PRN #20 tablet 06/16/17 Omeprazole 20 mg PO BID 06/16/17 06/16/17 Promethazine Supp [Phenergan Supp] 25 mg IN Q6H PRN #6 supp 06/16/17 Sucralfate 1 gm PO QID #20 tablet 06/16/17 Sulfamethox/Trimeth 800/160 1 tab PO BID 06/16/17 06/16/17 [Bactrim Ds] Ondansetron Odt [Zofran] 4 mg TL Q6H PRN #10 tablet 06/17/17 Amoxicillin 500 mg PO TID #30 capsule 04/29/18 Ondansetron HCl [Zofran] 4 mg PO Q6H PRN #10 tablet 04/29/18 Promethazine [Phenergan] 25 - 50 mg PO Q6H PRN #15 tab 04/29/18 Famotidine [Pepcid] 20 mg PO ONCE #30 tablet 05/02/18 Lidocaine Viscous 2% [Xylocaine 5 ml PO Q4H PRN #1 bottle 05/02/18 Viscous 2%] Promethazine Supp [Phenergan Supp] 25 mg IN Q6H PRN #5 supp 05/02/18 Ondansetron Odt [Zofran] 4 mg TL Q6H PRN #10 tablet 03/24/19 - Allergies Allergies/Adverse Reactions: Allergies Allergy/AdvReac Type Severity Reaction Status Date / Time No Known Drug Allergies Allergy Verified 03/24/19 15:14 - Social History Does the pt smoke?: No Smoking Status: Never smoker Does the pt drink ETOH?: No Does the pt have substance abuse?: Yes Substance Use and Type: Marijuana - Immunizations Immunizations are current?: Yes - POLST Patient has POLST: No PD ED PE NORMAL - Vitals Vital signs reviewed: Yes - General General: Alert and oriented X 3, No acute distress - HEENT HEENT: Moist mucous membranes - Neck Neck: Supple, no meningeal sign - Cardiac Cardiac: RRR - Respiratory Respiratory: No respiratory distress, Clear bilaterally - Abdomen Abdomen: Soft, Other (Tender palpation epigastric without peritoneal signs. Ot herwise benign abdominal exam) - Back Back: No CVA TTP, No spinal TTP - Derm Derm: Warm and dry, No rash - Extremities Extremities: No edema - Neuro Neuro: Alert and oriented X 3 Results - Vitals Vitals: Vital Signs - 24 hr 03/24/19 03/24/19 03/24/19 15:08 15:40 18:08 Temperature 36.8 C Heart Rate 88 71 54 L Respiratory 24 18 14 Rate Blood Pressure 148/107 H 118/68 O2 Saturation 100 100 98 Oxygen O2 Source Room air - Labs Labs: Laboratory Tests 03/24/19 03/24/19 03/24/19 15:35 15:35 17:41 WBC 11.8 H RBC 5.31 Hgb 15.3 Hct 45.8 MCV 86.3 MCH 28.8 MCHC 33.4 RDW 13.7 Plt Count 295 MPV 8.9 Neut # (Auto) 10.1 H Lymph # (Auto) 1.4 L [place] # (Auto) 0.2 Eos # (Auto) 0.0 Baso # (Auto) 0.0 Absolute Nucleated RBC 0.00 Nucleated RBC % 0.0 Sodium 139 Potassium 3.4 L Chloride 100 L Carbon Dioxide 21 Anion Gap 18.0 H BUN 25 H Creatinine 0.8 Estimated GFR (MDRD) 91 Glucose 103 H Calcium 10.2 Total Bilirubin 1.3 H AST 25 ALT 22 Alkaline Phosphatase 66 Total Protein 9.4 H Albumin 5.6 H Globulin 3.8 Albumin/Globulin Ratio 1.5 Lipase 28 Urine Color DARK YELLOW Urine Clarity CLEAR Urine pH 6.5 Ur Specific [place] 1.020 Urine Protein 30 H Urine Glucose (UA) NEGATIVE Urine Ketones 40 H Urine Occult Blood MODERATE H Urine Nitrite NEGATIVE Urine Bilirubin NEGATIVE Urine Urobilinogen 0.2 (NORMAL) Ur Leukocyte Esterase NEGATIVE Urine RBC 0-5 Urine WBC 0-3 Ur Squamous Epith Cells FEW Squamous Urine Bacteria None Seen Urine Mucus Few Strands Ur Microscopic Review INDICATED Urine Culture Comments NOT INDICATED PD MEDICAL DECISION MAKING - ED course Complexity details: reviewed results, re-evaluated patient, considered differential, d/w patient, d/w family ED course: 23-year-old female presents to the emergency department with vomiting. Possible cannabinoid induced hyperemesis? Given Zofran and Haldol. Symptoms resolved. Given IV fluids. Tolerating p.o. without difficulty. Abdomen is soft, nontender nondistended on serial exam. Patient counseled regarding signs and symptoms for which I believe and urgent re-evaluation would be necessary. Patient with good understanding of and agreement to plan and is comfortable going home at this time This document was made in part using voice recognition software. While efforts are made to proofread this document, sound alike and grammatical errors may occur. Departure - Departure Disposition: 01 Home, Self Care Clinical Impression: Vomiting Qualifiers: Vomiting type: unspecified Vomiting Intractability: non-intractable Nausea presence: with nausea Qualified Code(s): R11.2 - Nausea with vomiting, unspecified Condition: Good Instructions: ED Nausea Vomiting Follow-Up: your,doctor in 1 week [Other] Prescriptions: Ondansetron Odt [Zofran] 4 mg TL Q6H PRN #10 tablet PRN Reason: Nausea / Vomiting Comments: Drink plenty of fluids and rest. Return if you worsen. Follow-up with your doctor for further evaluation and care. This may be cannabinoid induced hyperemesis syndrome, and stopping marijuana intake may help your symptoms. Please note it would take several months of stopping to see a difference. Discharge Date/Time: 03/24/19 18:14
[2019-03-24 16:13] LABS: ALBUMIN 5.6 g/dL (3.2-5.5); ALBUMIN/GLOBULIN RATIO 1.5 (1.0-2.2); BILIRUBIN,TOTAL 1.3 mg/dL (0.2-1.0); CALCIUM 10.2 mg/dL (8.5-10.3); CREATININE 0.8 mg/dL (0.4-1.0); TOTAL PROTEIN 9.4 g/dL (6.7-8.2)
[2019-03-24 17:47] LABS: GLUCOSE, URINE (UA) NEGATIVE (NEGATIVE); KETONES,URINE (UA) 40 mg/dL (NEGATIVE); LEUKOCYTE ESTERASE, URINE NEGATIVE (NEGATIVE); NITRITE,URINE NEGATIVE (NEGATIVE); OCCULT BLOOD,URINE MODERATE (NEGATIVE); PH,URINE 6.5 PH (5.0-7.5); PROTEIN,URINE 30 mg/dL (NEGATIVE); UROBILINOGEN,URINE 0.2 (NORMAL) E.U./dL (NORMAL)
[2019-03-24 17:52] LABS: BILIRUBIN,URINE NEGATIVE (NEGATIVE); CLARITY,URINE CLEAR (CLEAR); ICTOTEST,URINE NEGATIVE
[2019-03-24 18:01] LABS: BACTERIA,URINE None Seen /HPF (None Seen); MUCUS,URINE Few Strands; RBC,URINE 0-5 /HPF (0-5); SQUAMOUS EPITHELIAL CELL,UR FEW Squamous (<= Few)
[2019-03-24 18:09] VITALS: BP 118/68
== END 2019-03-24 18:14 | disposition home or self-care (01) ==
LOC: ED 14:45
DX: R11.2 Nausea with vomiting, unspecified (principal); R10.13 Epigastric pain; F12.10 Cannabis abuse, uncomplicated
CPT/HCPCS: 36415; 80053; 81001; 83690; 85025; 96361; 96374; 96375; 99283; J1200; 81003; 87086

== ENCOUNTER 2020-09-18 16:42 | Outpatient (CLI) | payer OTHER ==
--- NOTE | 2020-09-18 18:30 | MRI Report ---
PROCEDURE: Cervical Spine W/O INDICATIONS: NUMBNESS AND TINGLING, SPINE PAIN TECHNIQUE: Noncontrast sagittal T1 spin echo and T2 fast spin echo, sagittal STIR, foraminal oblique sagittal T2 fast spin echo, and axial gradient echo or T2 fast spin echo through the cervical spine. COMPARISON: No prior cervical spine MRI examinations are available for review at the time of this di ctation. There are accompanying plain films, yet these are not available for review on the PACS HowDo at the time of this dictation. FINDINGS: Image quality: Motion artifact is noted. Alignment and Curvature: There is normal bony alignment. Bone Marrow: Marrow demonstrates normal overall signal. Spinal Cord: Visualized spinal cord has normal size and signal. No cerebellar tonsillar herniation. Paraspinous Soft Tissues: No paravertebral masses. Prevertebral soft tissues are normal in thicknes s. C2-C3: Normal in appearance. C3-C4: Normal in appearance. C4-C5: Normal in appearance. C5-C6: Normal in appearance. C6-C7: Normal in appearance. C7-T1: Normal in appearance. IMPRESSION: Cervical spine MRI within normal limits. Reviewed by: Vignesh Preciado MD on 09/18/2020 5:28 PM ARIS Approved by: Vignesh Preciado MD on 09/18/2020 5:28 PM AKNAYE Station ID: [id number]
--- NOTE | 2020-09-19 09:52 | XRAY Report ---
PROCEDURE: Cervical Spine 2 View INDICATIONS: NUMBNESS/TINGLING in hands/fingers/forearms TECHNIQUE: 3 view(s) of the cervical spine were acquired. COMPARISON: MR cervical spine 09/18/2020 FINDINGS: Bones: No fractures or dislocations to the T1 level. The lateral masses of C1 appear intact on the odontoid view. No suspicious bony lesions. Soft tissues: No prevertebral soft tissue swelling. IMPRESSION: No trauma found, minimal degenerative changes along the cervical spine. Reviewed by: Brooks Garcia MD on 09/19/2020 9:50 AM PDT Approved by: Brooks Garcia MD on 09/19/2020 9:50 AM PDT Station ID: [id number]
--- NOTE | 2020-09-19 09:53 | XRAY Report ---
PROCEDURE: Thoracic Spine 3 View INDICATIONS: numbness/tingling in hands/fingers/forearms TECHNIQUE: 3 views of the thoracic spine were acquired. COMPARISON: None. FINDINGS: Bones: No fractures or dislocations. No suspicious bony lesions. 12 pairs of ribs are noted, and a ppear intact where visualized. Soft tissues: No paravertebral stripe thickening. 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 No compression fracture seen. Very slight convex leftward scoliosis centered at the low thoracic spine incidentally noted. Reviewed by: Brooks Garcia MD on 09/19/2020 9:51 AM PDT Approved by: Brooks Garcia MD on 09/19/2020 9:51 AM PDT Station ID: [id number]
--- NOTE | 2020-09-19 09:54 | XRAY Report ---
PROCEDURE: Lumbar Spine 2 View INDICATIONS: numbness tingling in feet and lower legs. Pain at L4-L5, L5-S1 TECHNIQUE: 3 views of the lumbar spine were acquired. COMPARISON: CT abdomen/pelvis 06/17/2017. FINDINGS: Bones: 5 [id number] vertebrae are present. There is normal bony alignment. No vertebral body compression fractures. No suspicious bony lesions. Soft tissues: Overlying bowel gas pattern is normal. No suspicious soft tissue calcifications. IMPRESSION: A small degree of facet osteoarthritis appears present at L5-S1, no trauma found, no kamilah reciable subluxation that would indicate ligamentous laxity. Reviewed by: Brooks Garcia MD on 09/19/2020 9:53 AM PDT Approved by: Brooks Garcia MD on 09/19/2020 9:53 AM PDT Station ID: [id number]
== END 2020-09-18 16:43 | disposition home or self-care (01) ==
LOC: DI 16:42
PROVIDERS: ATTEND Physician Assistant
DX: M54.2 Cervicalgia (principal); M54.6 Pain in thoracic spine; R20.0 Anesthesia of skin; M47.817 Spondylosis without myelopathy or radiculopathy, lumbosacral region
CPT/HCPCS: 72040; 72072; 72100; 72141

== ENCOUNTER 2021-04-18 22:36 | Emergency (ER) | payer OTHER ==
[2021-04-18] MEDS ORDERED: SODIUM CHLORIDE 0.9% 1,000 ML IV STA (23:46)
[2021-04-18] MEDS ORDERED: ONDANSETRON 4 MG/2 ML VIAL IVP STA (23:46)
[2021-04-19] MEDS ORDERED: PROMETHAZINE INJ 25 MG in SODIUM CHLORIDE 0.9% 50 ML IV STA (00:51)
[2021-04-19] MEDS ORDERED: PROMETHAZINE 25 MG/1 ML VIAL ONE (00:56)
[2021-04-19] MEDS ORDERED: SODIUM CHLORIDE 0.9% 1,000 ML IV STA (00:57)
[2021-04-19 02:14] LABS: BILIRUBIN,URINE NEGATIVE (NEGATIVE); GLUCOSE, URINE (UA) NEGATIVE (NEGATIVE); KETONES,URINE (UA) >=80 mg/dL (NEGATIVE); LEUKOCYTE ESTERASE, URINE NEGATIVE (NEGATIVE); NITRITE,URINE NEGATIVE (NEGATIVE); OCCULT BLOOD,URINE NEGATIVE (NEGATIVE); PH,URINE 6.5 PH (5.0-7.5); PROTEIN,URINE TRACE mg/dL (NEGATIVE); UROBILINOGEN,URINE 0.2 (NORMAL) E.U./dL (NORMAL)
[2021-04-19 02:15] LABS: CLARITY,URINE CLEAR (CLEAR)
--- NOTE | 2021-04-19 02:27 | ED Physician Documentation ---
PD HPI NVD - Stated complaint Stated Complaint: CHEST PX, NAUSEA - Chief complaint Chief Complaint: Abd Pain - History obtained from History obtained from: Patient - Additonal information Additional information: Patient comes emergency department chief complaint of nausea and vomiting that seems worse for the past few days. Patient is about 11 weeks with a known IUP, and states that she has had nausea throughout most of her , but seems to be worse now. Patient denies measured fevers. She states she thought she had a little chill yesterday. No diarrhea. No dysuria. She states she is vomiting up anything she tries to put in her stomach. No other complaints at this time. Review of Systems Ten Systems: 10 systems reviewed and negative Constitutional: reports: Reviewed and negative Eyes: reports: Reviewed and negative Ears: reports: Reviewed and negative Nose: reports: Reviewed and negative Throat: reports: Reviewed and negative Cardiac: reports: Reviewed and negative Respiratory: reports: Reviewed and negative GI: reports: Nausea, Vomiting : reports: Reviewed and negative Skin: reports: Reviewed and negative Musculoskeletal: reports: Reviewed and negative Neurologic: reports: Reviewed and negative Psychiatric: reports: Reviewed and negative Endocrine: reports: Reviewed and negative Immunocompromised: reports: Reviewed and negative PD PAST MEDICAL HISTORY - Past Medical History Past Medical History: Yes Cardiovascular: None Respiratory: None Endocrine/Autoimmune: None GI: None 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 : None HEENT: None Psych: None Musculoskeletal: None Derm: None - Past Surgical History Past Surgical History: Yes /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: 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 ablation - Present Medications Home Medications: Ambulatory Orders Medication Instructions Recorded Confirmed Gabapentin [Neurontin] 100 mg PO DAILY 04/18/21 04/18/21 168/Iron/Folic/Omega3 04/18/21 [One-A-Day -1 Softgel] Ondansetron Odt [Zofran] 4 mg TL Q6H PRN #20 tablet 04/19/21 Promethazine Supp [Phenergan Supp] 25 mg HI Q6HR PRN #20 supp 04/19/21 - Allergies Allergies/Adverse Reactions: Allergies Allergy/AdvReac Type Severity Reaction Status Date / Time No Known Drug Allergies Allergy Verified 04/18/21 22:40 - Social History Does the pt smoke?: No Smoking Status: Never smoker Does the pt drink ETOH?: No Does the pt have substance abuse?: Yes Substance Use and Type: Marijuana - Immunizations Immunizations are current?: Yes - POLST Patient has POLST: No PD ED PE NORMAL - Vitals Vital signs reviewed: Yes - General General: Alert and oriented X 3, Other (The patient appears uncomfortable and miserable, but is in no distress.) - HEENT HEENT: Atraumatic, PERRL, EOMI, Moist mucous membranes - Neck Neck: Supple, no meningeal sign - Cardiac Cardiac: RRR, No murmur - Respiratory Respiratory: No respiratory distress, Clear bilaterally - Abdomen Abdomen: Soft, Non distended, Other (Mild diffuse tenderness, no rebound or guarding.) - Back Back: No CVA TTP - Derm Derm: Normal color, Warm and dry, No rash - Extremities Extremities: No deformity, No edema, No calf tenderness / cord - Neuro Neuro: Alert and oriented X 3 - Psych Psych: Normal mood, Normal affect Results - Vitals Vitals: Vital Signs - 24 hr 04/18/21 04/19/21 04/19/21 22:40 00:43 02:40 Temperature 36.6 C 36.6 C 36.6 C Heart Rate 80 64 56 L Respiratory 16 18 16 Rate Blood Pressure 124/65 124/66 104/64 O2 Saturation 100 100 100 Oxygen O2 Source Room air - Labs Labs: Laboratory Tests 04/19/21 02:00 Urine Color YELLOW Urine Clarity CLEAR Urine pH 6.5 Ur Specific [place] >=1.030 H Urine Protein TRACE Urine Glucose (UA) NEGATIVE Urine Ketones >=80 H Urine Occult Blood NEGATIVE Urine Nitrite NEGATIVE Urine Bilirubin NEGATIVE Urine Urobilinogen 0.2 (NORMAL) Ur Leukocyte Esterase NEGATIVE Ur Microscopic Review NOT INDICATED Urine Culture Comments NOT INDICATED PD MEDICAL DECISION MAKING - ED course Complexity details: reviewed results, re-evaluated patient, considered differential, d/w patient ED course: Patient was treated symptomatically in the emergency department IV fluids and Zofran, after which she was still vomiting. I gave her another liter of fluid, and this time, a dose of Phenergan. This seemed to get her feeling quite a bit better. Urinalysis was unremarkable. We have discussed symptomatic management at home, as well as usual indications for return. Departure - Departure Disposition: 01 Home, Self Care Clinical Impression: Vomiting Qualifiers: Vomiting type: bilious vomiting Nausea presence: with nausea Qualified Code(s): R11.14 - Bilious vomiting Qualifiers: Weeks of gestation: 11 weeks Qualified Code(s): Z3A.11 - 11 weeks gestation of Condition: Stable Instructions: ED Preg Morning Sickness Prescriptions: Promethazine Supp [Phenergan Supp] 25 mg HI Q6HR PRN #20 supp PRN Reason: Nausea / Vomiting Ondansetron Odt [Zofran] 4 mg TL Q6H PRN #20 tablet PRN Reason: Nausea / Vomiting Comments: Your urinalysis is negative. While it is possible that you have a viral illness on top of your related nausea, it is most likely that the nausea vomiting is related to the . Please use the nausea medicine as prescribed, as needed. Try to get plenty of fluids in small sips. Please follow-up with your OB specialist as soon as you are able. Discharge Date/Time: 04/19/21 02:40
[2021-04-19 02:41] VITALS: BP 104/64
== END 2021-04-19 02:40 | disposition home or self-care (01) ==
LOC: ED 22:36
DX: O21.9 Vomiting of pregnancy, unspecified (principal); Z3A.11 11 weeks gestation of pregnancy
CPT/HCPCS: 81003; 96361; 96365; 96375; 99283; J7040; 81001; 87086

== ENCOUNTER 2021-04-23 13:41 | Outpatient (CLI) | payer OTHER ==
--- NOTE | 2021-04-23 16:52 | Ultrasound Report ---
PROCEDURE: OB First Trimester INDICATIONS: THREATENED MISCARRIAGE IN FIRST TRIMESTER OUTSIDE/PRIOR DATING DATA: Last menstrual period (LMP): Unknown. LMP-based estimated date of delivery (ROHAN): Unknown. First dating scan (date and location): 04/23/2021. Estimated date of delivery (ROHAN) from first dating scan: 11/05/2021. The below data below was generated using the ultrasound ROHAN of 11/05/2021 TECHNIQUE: Real-time scanning was performed of the fetus and maternal pelvic organs, with image documentation. COMPARISON: FINDINGS: Embryo: Single live intrauterine is identified with crown-rump length measuring 5.3 cm cor responding to 12 weeks 0 days. heart rate is identified at 160 bpm. Placenta is anterior. It is noted that nuchal region appears prominent measuring 7.3 mm. Remaining portions of the exam are unre markable. Measurement variability in dating: +/- 4 weeks by LMP, +/- 7 days by mean sac diameter (use before 6 weeks gestation if crown-rump length not able to be measured), +/- 5 days by crown-rump length (6-12 weeks gestation). IMPRESSION: 1. Single live intrauterine corresponding to 12 weeks 0 days. 2. Mildly prominent appearance of the nuchal region as above. It is noted that this is not a speciali zed focused exam as part of current images. Recommend follow-up with clinical correlation, laboratory values and dedicated ultrasound follow-up. Reviewed by: Renu Gould MD on 04/23/2021 4:50 PM PDT Approved by: Renu Gould MD on 04/23/2021 4:50 PM PDT Station ID: [id number]
== END 2021-04-23 13:42 | disposition home or self-care (01) ==
LOC: DI 13:41
PROVIDERS: ATTEND Obstetrics & Gynecology
DX: O20.0 Threatened abortion (principal); Z3A.12 12 weeks gestation of pregnancy

== ENCOUNTER 2021-05-02 08:00 | Outpatient (CLI) | payer OTHER ==
[2021-05-03 22:02] LABS: CHLAMYDIA TRACHOMATIS DNA NEGATIVE (NEGATIVE); NEISSERIA GONORRHOEAE DNA NEGATIVE (NEGATIVE); TRICHOMONAS VAGINALIS DNA NEGATIVE (NEGATIVE)
== END 2021-05-02 23:59 | disposition home or self-care (01) ==
LOC: LAB.WC 08:00
PROVIDERS: ATTEND Obstetrics & Gynecology
DX: Z11.3 Encounter for screening for infections with a predominantly sexual mode of transmission (principal)
CPT/HCPCS: 87491; 87591; 87661

== ENCOUNTER 2021-05-07 12:24 | Outpatient (CLI) | payer OTHER ==
[2021-05-07 12:54] LABS: BASOPHILS # (AUTO) 0.1 10^3/uL (0.0-0.1); BASOPHILS % (AUTO) 0.6 %; EOSINOPHILS # (AUTO) 0.1 10^3/uL (0.0-0.7); HCT - HEMATOCRIT 36.5 % (37.0-47.0); HGB - HEMOGLOBIN 12.4 g/dL (12.0-16.0); LYMPHOCYTES # (AUTO) 2.2 10^3/uL (1.5-3.5); LYMPHOCYTES % (AUTO) 25.5 %; MEAN CORPUSCULAR HEMOGLOBIN 30.4 pg (27.0-31.0); MEAN CORPUSCULAR VOLUME 89.5 fL (81.0-99.0); MEAN PLATELET VOLUME 10.8 fL (7.9-10.8); MONOCYTES # (AUTO) 0.5 10^3/uL (0.0-1.0); NEUTROPHILS # (AUTO) 5.8 10^3/uL (1.5-6.6); NEUTROPHILS % (AUTO) 66.7 %; PLT - PLATELET COUNT 224 10^3/uL (130-450); RED BLOOD COUNT 4.08 10^6/uL (4.20-5.40); RED CELL DISTRIBUTION WIDTH 13.1 % (12.0-15.0); WHITE BLOOD COUNT 8.7 x10^3/uL (4.8-10.8)
[2021-05-08 13:11] LABS: HEPATITIS B SURFACE ANTIGEN NON-REACTIVE (NON-REACTIVE)
[2021-05-08 13:12] LABS: HEPATITIS C ANTIBODY NON-REACTIVE (NON-REACTIVE)
[2021-05-08 15:01] LABS: HIV AG/AB 4TH GEN NON-REACTIVE (NON-REACTIVE)
== END 2021-05-07 12:25 | disposition home or self-care (01) ==
LOC: LAB 12:24
PROVIDERS: ATTEND Obstetrics & Gynecology
DX: Z36.89 Encounter for other specified antenatal screening (principal)
CPT/HCPCS: 36415; 82565; 85025; 86592; 86762; 86787; 86803; 86850; 86900; 86901; 87340; 87389

== ENCOUNTER 2021-06-25 13:45 | Outpatient (CLI) | payer OTHER | END 2021-06-25 23:59 | disposition home or self-care (01) | LOC: LAB.N 13:45 | PROVIDERS: ATTEND Family Medicine | DX: R05 Cough (principal); Z20.822 Contact with and (suspected) exposure to COVID-19 ==

== ENCOUNTER 2021-06-25 14:16 | Outpatient (CLI) | payer OTHER ==
--- NOTE | 2021-06-25 16:31 | XRAY Report ---
PROCEDURE: Chest 2 View X-Ray INDICATIONS: Cough TECHNIQUE: 2 view(s) of the chest. COMPARISON: None. FINDINGS: Surgical changes and devices: None. Lungs and pleura: No pleural effusions or pneumothorax. Lungs are clear. Mediastinum: Mediastinal contours are normal. Heart size is normal. Bones and chest wall: No suspicious bony abnormalities. Soft tissues appear unremarkable. IMPRESSION: No acute cardiopulmonary process demonstrated radiographically. Reviewed by: Chadd Bell MD on 06/25/2021 4:30 PM PDT Approved by: Chadd Bell MD on 06/25/2021 4:30 PM PDT Station ID: [id number]
== END 2021-06-25 14:17 | disposition home or self-care (01) ==
LOC: DI.N 14:16
PROVIDERS: ATTEND Family Medicine
DX: R05 Cough (principal)

== ENCOUNTER 2023-01-16 13:02 | Outpatient (CLI) | payer MEDICAID ==
[2023-01-16] MEDS ORDERED: iohexoL-300 100 ML VIAL IVP ONE (13:30)
[2023-01-16] MEDS ORDERED: iohexoL-300 100 ML VIAL ONE (13:36)
--- NOTE | 2023-01-16 16:15 | CT Report ---
PROCEDURE: CHEST W INDICATIONS: SOLITARY PULMONARY NODULE CONTRAST:100ml omni 300 TECHNIQUE: After the administration of intravenous contrast, 1 mm axial images were acquired from the pulmonary apices through the posterior costophrenic angles. Axial 5 mm soft tissue kernel reconstructions were performed as well as 8 mm axial MIP and coronal and sagittal 5 mm reformations. For radiation dose reduction, the following was used: automated exposure control, adjustment of mA and/or kV according to patient size. COMPARISON: None. FINDINGS: Image quality: Excellent. Lungs and pleura: No acute air space opacities. No pleural effusions or pneumothorax. Central and peripheral airways are patent and normal in caliber. Subtle mosaic attenuation of the lungs. Intrapu lmonary lymph node along the right major fissure, benign. Subpleural nodule with a triangle shaped in the right middle lobe, most likely an intrapulmonary lymph node (4/142). Mediastinum: Heart size is normal. No pericardial effusion. No mediastinal or hilar adenopathy by size criteria. Thoracic aorta and central pulmonary arteries are normal in size. Esophagus is yris l in caliber. Small hiatal hernia. Bones and chest wall: No suspicious bony lesions. No vertebral body compression fractures. No axil juan or supraclavicular adenopathy by size criteria. The thyroid is normal in size and there are no incidental findings.. Abdomen: Fluid attenuating liver cyst. IMPRESSION: No suspicious pulmonary nodules. Subtle mosaic attenuation of the lungs, suggestive of small airways disease. CLINICAL RECOMMENDATION STATEMENTS: In patients <35 years with an ITN detected on CT, MRI, or extrathyroidal ultrasound, the Committee re commends further evaluation with dedicated thyroid ultrasound if the nodule is "e1 cm and has no susp icious imaging features, and if the patient has normal life expectancy. In patients "e35 years with an ITN detected on CT, MRI, or extrathyroidal ultrasound, the Committee r ecommends further evaluation with dedicated thyroid ultrasound if the nodule is "e1.5 cm and has no s uspicious imaging features, and if the patient has normal life expectancy. (ACR, 2014) Reviewed by: Anthony Juares on 01/16/2023 4:14 PM PST Approved by: Anthony Juares on 01/16/2023 4:14 PM PST Station ID: [id number]
== END 2023-01-16 13:03 | disposition home or self-care (01) ==
LOC: DI 13:02
PROVIDERS: ATTEND Internal Medicine
DX: R91.1 Solitary pulmonary nodule (principal)
CPT/HCPCS: 71260; Q9967

== ENCOUNTER 2023-02-25 17:39 | Emergency (ER) | payer MEDICAID ==
[2023-02-25 18:39] LABS: BASOPHILS # (AUTO) 0.1 10^3/uL (0.0-0.1); BASOPHILS % (AUTO) 0.4 %; EOSINOPHILS % (AUTO) 0.1 %; HCT - HEMATOCRIT 39.7 % (37.0-47.0); HGB - HEMOGLOBIN 12.2 g/dL (12.0-16.0); LYMPHOCYTES % (AUTO) 8.3 %; MEAN CORPUSCULAR HEMOGLOBIN 26.5 pg (27.0-31.0); MEAN CORPUSCULAR HGB CONC 30.7 g/dL (32.0-36.0); MEAN CORPUSCULAR VOLUME 86.3 fL (81.0-99.0); MEAN PLATELET VOLUME 9.9 fL (7.9-10.8); MONOCYTES # (AUTO) 0.1 10^3/uL (0.0-1.0); MONOCYTES % (AUTO) 0.8 %; NEUTROPHILS # (AUTO) 11.1 10^3/uL (1.5-6.6); PLT - PLATELET COUNT 692 10^3/uL (130-450); RED CELL DISTRIBUTION WIDTH 15.7 % (12.0-15.0); WHITE BLOOD COUNT 12.4 x10^3/uL (4.8-10.8)
[2023-02-25] MEDS: SODIUM CHLORIDE 0.9% 1,000 ML IV STA ×2 (18:42→19:57)
[2023-02-25] MEDS: ONDANSETRON 4 MG/2 ML VIAL IVP STA (18:42)
[2023-02-25] MEDS: DROPERIDOL 5 MG/2 ML VIAL IVP STA (18:54)
[2023-02-25 18:57] LABS: ALBUMIN 4.1 g/dL (3.2-5.5); ALBUMIN/GLOBULIN RATIO 0.8 (1.0-2.2); BILIRUBIN,TOTAL 0.7 mg/dL (0.2-1.0); CALCIUM 9.6 mg/dL (8.5-10.3); CREATININE 0.8 mg/dL (0.4-1.0); POTASSIUM 4.1 mmol/L (3.5-5.0); TOTAL PROTEIN 9.3 g/dL (6.7-8.2)
--- OUTSIDE RECORDS SUMMARY | 2023-02-25 19:01 | EXTERNAL MEDICAL SUMMARY RPT | Continuity of Care Document ---
:1995 Author Organization [facility] Address [address] [place] [address] Phone Care Team Providers Name Role Phone Madhavi Del Toro Unavailable Unavailable Allergies No information. Encounters No information. Functional Status No information. Immunizations No information. Medications date description facility 2023-02-04 00:00 ondansetron 4 mg oral tablet [facility] [place] 2023-02-04 00:00 ondansetron 4 mg oral tablet [facility] 2023-02-04 00:00 apap 325 mg / ox[facility]codone [facility] hydrochloride 5 mg oral tablet [place] 2023-02-04 00:00 apap 325 mg / oxycodone [facility] hydrochloride 5 mg oral tablet Urogyneco logy 2023-02-04 00:00 ondansetron 4 mg oral tablet [facility] 2023-02-04 00:00 ondansetron 4 mg oral tablet [facility] 2023-02-19 00:00 omeprazole 40 mg delayed release [facility] 2023-02-03 00:00 sumatriptan 5 mg/actuat nasal [facility] spray [facility] 2023-02-17 00:00 sumatriptan 5 mg/actuat nasal [facility] spray [facility] 2023-02-23 00:00 sumatriptan 5 mg/actuat nasal [facility] 2023-02-19 00:00 24 hr venlafaxine 75 mg extended [facility] oral [facility] 2023-01-01 00:00 duloxetine 30 mg delayed release [facility] oral [facility] 2023-01-01 00:00 duloxetine 30 mg delayed release [facility] oral capsule Urogynecology 2023-01-01 00:00 cymbalta 30 mg (as duloxetine [facility] hcl 33.7 mg) delayed release oral [place] [facility] capsule 2023-01-01 00:00 cymbalta 30 mg (as duloxetine [facility] hcl 33.7 mg) delayed release oral [facility] capsule Problems No information. Procedures No information. Results/Labs No information. Social History date description facility 2023-02-03 00:00 Current smoker [facility] Urogynecology 2023-02-17 00:00 Current smoker [facility] Urogynecology 2023-02-17 00:00 Ex-smoker [facility] 2023-02-17 00:00 Ex-smoker [facility] Urogynecology 2023-02-23 00:00 Current smoker [facility] Vital Signs date measurement value units 2023-02-03 00:00 BMI 35.08 kg/m2 2023-02-03 00:00 BP_diastolic 100 mmHg 2023-02-03 00:00 BP_systolic 132 mmHg 2023-02-03 00:00 heart_rate 67 /min 2023-02-03 00:00 height_metric 170.2 cm 2023-02-03 00:00 height_standard 67.01 in 2023-02-03 00:00 o2_saturation 96 % 2023-02-03 00:00 temperature_metric 36.22 C 2023-02-03 00:00 temperature_standard 97.2 F 2023-02-03 00:00 weight_metric 101.61 kg 2023-02-03 00:00 weight_standard 224 lb 2023-02-19 00:00 BMI 34.61 kg/m2 2023-02-19 00:00 BP_diastolic 74 mmHg 2023-02-19 00:00 BP_systolic 124 mmHg 2023-02-19 00:00 heart_rate 103 /min 2023-02-19 00:00 height_metric 170.2 cm 2023-02-19 00:00 height_standard 67.01 in 2023-02-19 00:00 o2_saturation 97 % 2023-02-19 00:00 respiration_rate 16 /min 2023-02-19 00:00 temperature_metric 36.28 C 2023-02-19 00:00 temperature_standard 97.3 F 2023-02-19 00:00 weight_metric 100.25 kg 2023-02-19 00:00 weight_standard 221 lb
--- NOTE | 2023-02-25 19:21 | ED Physician Documentation ---
PD HPI NVD - Stated complaint Stated Complaint: VOMITING - Chief complaint Chief Complaint: Abd Pain - History obtained from History obtained from: Patient - Additonal information Additional information: Patient is a 27-year-old female with a history of cyclical vomiting and daily marijuana use presenting for evaluation of nausea and vomiting for the past 48 hours. She reports that this feels like her cyclical vomiting. She denies any abdominal pain associated with it. She denies any known triggers. She has Zofran at home Which did not help any of her symptoms.She denies fever, cough, congestion, chest pain, difficulty breathing, diarrhea, dysuria, concerns for . She denies vaginal bleeding or discharge.She had surgery 3 weeks ago for an ovarian cyst removal. Review of Systems Constitutional: denies: Fever Cardiac: denies: Chest pain / pressure Respiratory: denies: Dyspnea GI: reports: Nausea, Vomiting. 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 - Present Medications Home Medications: Ambulatory Orders Medication Instructions Recorded Confirmed Gabapentin [Neurontin] 100 mg PO DAILY 04/18/21 04/18/21 168/Iron/Folic/Omega3 04/18/21 [One-A-Day -1 Softgel] Ondansetron Odt [Zofran] 4 mg TL Q6H PRN #20 tablet 04/19/21 Promethazine Supp [Phenergan Supp] 25 mg OR Q6HR PRN #20 supp 04/19/21 Promethazine Supp [Phenergan Supp] 25 mg OR Q6HR PRN #15 supp 02/25/23 - Allergies Allergies/Adverse Reactions: Allergies Allergy/AdvReac Type Severity Reaction Status Date / Time No Known Drug Allergies Allergy Verified 02/25/23 18:11 - Social History Does the pt smoke?: No Smoking Status: Never smoker Does the pt drink ETOH?: No Does the pt have substance abuse?: Yes - Immunizations Immunizations are current?: Yes - POLST Patient has POLST: No PD ED PE NORMAL - General General: Alert and oriented X 3, No acute distress, Well developed/nourished - HEENT HEENT: Atraumatic - Neck Neck: Supple, no meningeal sign - Cardiac Cardiac: RRR, No murmur - Respiratory Respiratory: No respiratory distress, Clear bilaterally - Abdomen Abdomen: Soft, Non tender, Non distended - Derm Derm: Warm and dry - Neuro Neuro: Normal speech Results - Vitals Vitals: Vital Signs - 24 hr 02/25/23 02/25/23 02/25/23 18:06 18:11 20:11 Temperature 36.7 C 36.7 C Heart Rate 77 77 94 Respiratory 20 20 15 Rate Blood Pressure 160/100 H 160/100 H 130/80 O2 Saturation 98 98 98 Oxygen O2 Source Room air - Labs Labs: Laboratory Tests 02/25/23 02/25/23 02/25/23 18:33 18:33 19:35 WBC 12.4 H RBC 4.60 Hgb 12.2 Hct 39.7 MCV 86.3 MCH 26.5 L MCHC 30.7 L RDW 15.7 H Plt Count 692 H MPV 9.9 Neut # (Auto) 11.1 H Lymph # (Auto) 1.0 L Scott # (Auto) 0.1 Eos # (Auto) 0.0 Baso # (Auto) 0.1 Absolute Nucleated RBC 0.00 Nucleated RBC % 0.0 Sodium 137 Potassium 4.1 Chloride 103 Carbon Dioxide 23 Anion Gap 11.0 BUN 14 Creatinine 0.8 Estimated GFR (MDRD) 87 L Glucose 125 H Calcium 9.6 Total Bilirubin 0.7 AST 29 ALT 45 Alkaline Phosphatase 143 H Total Protein 9.3 H Albumin 4.1 Globulin 5.2 H Albumin/Globulin Ratio 0.8 L Lipase 36 Urine Color YELLOW Urine Clarity HAZY Urine pH 6.5 Ur Specific [place] 1.025 Urine Protein 30 H Urine Glucose (UA) NEGATIVE Urine Ketones >=80 H Urine Occult Blood NEGATIVE Urine Nitrite NEGATIVE Urine Bilirubin NEGATIVE Urine Urobilinogen 0.2 (NORMAL) Ur Leukocyte Esterase NEGATIVE Urine RBC 0-5 Urine WBC 0-3 Ur Squamous Epith Cells MOD Squamous H Urine Bacteria Rare Urine Mucus Moderate Strands Ur Microscopic Review INDICATED Urine Culture Comments NOT INDICATED Urine HCG, Qual NEGATIVE PD Medical Decision Making - ED course Complexity details: reviewed results, re-evaluated patient, d/w patient ED course: Pt is a 27-year-old female presenting for evaluation of nausea and vomiting. She has a history of cyclical vomiting. Her abdominal exam is benign.CBC and chemistries were reviewed. Mild leukocytosis of 12,000. Alk phos is 143. She has no right upper quadrant tenderness on repeated exams.She did require several doses of antiemetics including IV Zofran, droperidol and Reglan which ultimately gave her relief. She is feeling better after 2 L of IV fluids. Her repeat abdominal exam remained benign. Patient is not wanting to go home. She has had Phenergan suppository prescription in the past so we will also write her for this as the Zofran she has at home is not helping her. She was encouraged to consider marijuana cessation as this could be exacerbating her symptoms. Patient counseled on concerning symptoms to return for. Departure - Departure Disposition: 01 , Self Care Clinical Impression: Cyclical vomiting Condition: Stable Instructions: ED Nausea Vomiting Prescriptions: Promethazine Supp [Phenergan Supp] 25 mg OR Q6HR PRN #15 supp PRN Reason: Nausea / Vomiting Comments: I have sent a prescription for an antinausea medication that comes as a suppository to [facility] in [place].I would consider stopping marijuana use as this may be exacerbating your cyclical vomiting. Please start with a bland diet and advance as tolerated. Return to the emergency department with any new or worsening symptoms. Discharge Date/Time: 02/25/23 21:13
[2023-02-25 19:55] LABS: GLUCOSE, URINE (UA) NEGATIVE (NEGATIVE); HCG UR QUAL NEGATIVE; KETONES,URINE (UA) >=80 mg/dL (NEGATIVE); LEUKOCYTE ESTERASE, URINE NEGATIVE (NEGATIVE); NITRITE,URINE NEGATIVE (NEGATIVE); OCCULT BLOOD,URINE NEGATIVE (NEGATIVE); PH,URINE 6.5 PH (5.0-7.5); PROTEIN,URINE 30 mg/dL (NEGATIVE); UROBILINOGEN,URINE 0.2 (NORMAL) E.U./dL (NORMAL)
[2023-02-25] MEDS: diphenhydrAMINE INJ 50 MG/ML VIAL IVP STA (19:56)
[2023-02-25] MEDS: METOCLOPRAMIDE 10 MG/2 ML VIAL IVP STA (19:56)
[2023-02-25 20:10] LABS: BILIRUBIN,URINE NEGATIVE (NEGATIVE); CLARITY,URINE HAZY (CLEAR); ICTOTEST,URINE NEGATIVE
[2023-02-25 20:15] LABS: BACTERIA,URINE Rare /HPF (None Seen); MUCUS,URINE Moderate Strands; RBC,URINE 0-5 /HPF (0-5); SQUAMOUS EPITHELIAL CELL,UR MOD Squamous (<= Few); WBC,URINE 0-3 /HPF (0-5)
[2023-02-25 20:18] VITALS: BP 130/80
== END 2023-02-25 21:13 | disposition home or self-care (01) ==
LOC: ED 17:39
DX: R11.15 Cyclical vomiting syndrome unrelated to migraine (principal)
CPT/HCPCS: 36415; 80053; 81001; 81003; 81025; 83690; 85025; 87086; 96374; 96375; 99284

== ENCOUNTER 2023-05-04 15:48 | Outpatient (CLI) | payer MEDICAID ==
[2023-05-04 20:52] LABS: BASOPHILS # (AUTO) 0.1 10^3/uL (0.0-0.1); BASOPHILS % (AUTO) 0.6 %; EOSINOPHILS # (AUTO) 0.2 10^3/uL (0.0-0.7); EOSINOPHILS % (AUTO) 2.1 %; HGB - HEMOGLOBIN 11.9 g/dL (12.0-16.0); LYMPHOCYTES # (AUTO) 3.2 10^3/uL (1.5-3.5); LYMPHOCYTES % (AUTO) 28.6 %; MEAN CORPUSCULAR HEMOGLOBIN 25.2 pg (27.0-31.0); MEAN CORPUSCULAR HGB CONC 31.3 g/dL (32.0-36.0); MEAN CORPUSCULAR VOLUME 80.5 fL (81.0-99.0); MEAN PLATELET VOLUME 10.7 fL (7.9-10.8); MONOCYTES # (AUTO) 0.8 10^3/uL (0.0-1.0); MONOCYTES % (AUTO) 6.8 %; NEUTROPHILS # (AUTO) 6.9 10^3/uL (1.5-6.6); NEUTROPHILS % (AUTO) 61.5 %; PLT - PLATELET COUNT 371 10^3/uL (130-450); RED BLOOD COUNT 4.72 10^6/uL (4.20-5.40); RED CELL DISTRIBUTION WIDTH 15.3 % (12.0-15.0); WHITE BLOOD COUNT 11.2 x10^3/uL (4.8-10.8)
[2023-05-04 21:37] LABS: BILIRUBIN,URINE NEGATIVE (NEGATIVE); GLUCOSE, URINE (UA) NEGATIVE (NEGATIVE); KETONES,URINE (UA) NEGATIVE (NEGATIVE); LEUKOCYTE ESTERASE, URINE TRACE (NEGATIVE); NITRITE,URINE NEGATIVE (NEGATIVE); OCCULT BLOOD,URINE NEGATIVE (NEGATIVE); PROTEIN,URINE NEGATIVE (NEGATIVE); UROBILINOGEN,URINE 0.2 (NORMAL) E.U./dL (NORMAL)
[2023-05-04 21:52] LABS: AMORPHOUS SEDIMENT,UR Few /LPF; BACTERIA,URINE Many /HPF (None Seen); CLARITY,URINE HAZY (CLEAR); RBC,URINE 0-5 /HPF (0-5); SQUAMOUS EPITHELIAL CELL,UR MANY Squamous (<= Few)
[2023-05-06 01:08] LABS: HBsAG SCREEN Negative (Negative)
[2023-05-06 04:09] LABS: HCV AB Non Reactive (Non Reactive); HIV SCREEN 4TH GENERATION Non Reactive (Non Reactive)
[2023-05-06 15:09] LABS: VARICELLA-ZOSTER AB IGG <135 index (Immune >165)
[2023-05-07 05:13] LABS: RPR Non Reactive (Non Reactive)
== END 2023-05-04 15:49 | disposition home or self-care (01) ==
LOC: LAB.N 15:48
PROVIDERS: ATTEND Obstetrics & Gynecology
DX: Z34.90 Encounter for supervision of normal pregnancy, unspecified, unspecified trimester (principal)
CPT/HCPCS: 36415; 81001; 85025; 86592; 86762; 86787; 86803; 86850; 86900; 86901; 87086; 87340; 87389

== ENCOUNTER 2023-05-12 15:32 | Outpatient (CLI) | payer MEDICAID ==
--- NOTE | 2023-05-12 20:49 | Ultrasound Report ---
PROCEDURE: OB First Trimester w/TV INDICATIONS: POSITIVE TEST OUTSIDE/PRIOR DATING DATA: Last menstrual period (LMP): 03/10/2023. LMP-based estimated date of delivery (ROHAN): 12/15/2023. First dating scan (date and location): 05/12/2023. Estimated date of delivery (ROHAN) from first dating scan: 12/13/2023. TECHNIQUE: Real-time scanning was performed of the fetus and maternal pelvic organs, with image documentation. Endovaginal scanning was also performed to better visualize the fetus and maternal ovaries. COMPARISON: None. FINDINGS: Embryo: Intrauterine gestational sac is seen with yolk sac and pole. Metz-rump length is 2.5 cm, compatible with an estimated gestational age of 9 weeks 2 days. Heart rate: 182 bpm Measurement variability in dating: +/- 4 weeks by LMP, +/- 7 days by mean sac diameter (use before 6 weeks gestation if crown-rump length not able to be measured), +/- 5 days by crown-rump length (6-12 weeks gestation). Maternal organs: Ovaries are unremarkable.. IMPRESSION: Single live intrauterine with estimated gestational age of 9 weeks 2 days, giving an ultras ound ROHAN of 12/13/2023. Reviewed by: Enrico Montes MD on 05/12/2023 8:48 PM PDT Approved by: Enrico Montes MD on 05/12/2023 8:48 PM PDT Station ID: [id number]
== END 2023-05-12 15:33 | disposition home or self-care (01) ==
LOC: DI 15:32
PROVIDERS: ATTEND Obstetrics & Gynecology
DX: Z34.91 Encounter for supervision of normal pregnancy, unspecified, first trimester (principal)

== ENCOUNTER 2023-05-19 15:53 | Outpatient (CLI) | payer MEDICAID ==
[2023-05-19 16:31] LABS: ALBUMIN 3.2 g/dL (3.2-5.5); ALBUMIN/GLOBULIN RATIO 0.8 (1.0-2.2); BILIRUBIN,TOTAL 0.3 mg/dL (0.2-1.0); CALCIUM 8.8 mg/dL (8.5-10.3); CREATININE 0.7 mg/dL (0.4-1.0); POTASSIUM 3.6 mmol/L (3.5-5.0); TOTAL PROTEIN 7.2 g/dL (6.7-8.2); URIC ACID 3.6 mg/dL (2.6-7.2)
== END 2023-05-19 15:54 | disposition home or self-care (01) ==
LOC: LAB 15:53
PROVIDERS: ATTEND Obstetrics & Gynecology
DX: O16.9 Unspecified maternal hypertension, unspecified trimester (principal); Z82.79 Family history of other congenital malformations, deformations and chromosomal abnormalities; Z3A.10 10 weeks gestation of pregnancy
CPT/HCPCS: 36415; 80053; 84550; 87491; 87591; 87661

== ENCOUNTER 2023-05-20 08:00 | Outpatient (CLI) | payer MEDICAID ==
[2023-05-20 16:56] LABS: CHLAMYDIA TRACHOMATIS DNA NEGATIVE (NEGATIVE); NEISSERIA GONORRHOEAE DNA NEGATIVE (NEGATIVE)
== END 2023-05-20 23:59 | disposition home or self-care (01) ==
LOC: LAB.WC 08:00
PROVIDERS: ATTEND Obstetrics & Gynecology
DX: Z3A.10 10 weeks gestation of pregnancy (principal)
CPT/HCPCS: 87491; 87591; 87661

== ENCOUNTER 2023-09-11 10:56 | Outpatient (CLI) | payer MEDICAID ==
[2023-09-11 17:45] LABS: HCT - HEMATOCRIT 35.6 % (37.0-47.0); HGB - HEMOGLOBIN 11.2 g/dL (12.0-16.0); MEAN CORPUSCULAR HEMOGLOBIN 26.9 pg (27.0-31.0); MEAN CORPUSCULAR HGB CONC 31.5 g/dL (32.0-36.0); MEAN CORPUSCULAR VOLUME 85.6 fL (81.0-99.0); MEAN PLATELET VOLUME 11.5 fL (7.9-10.8); RED BLOOD COUNT 4.16 10^6/uL (4.20-5.40); RED CELL DISTRIBUTION WIDTH 13.8 % (12.0-15.0)
== END 2023-09-11 10:57 | disposition home or self-care (01) ==
LOC: LAB.N 10:56
PROVIDERS: ATTEND Obstetrics & Gynecology
DX: O09.92 Supervision of high risk pregnancy, unspecified, second trimester (principal)
CPT/HCPCS: 36415; 82950; 85027; 86850

== ENCOUNTER 2023-10-08 11:57 | Outpatient (CLI) | payer MEDICAID | END 2023-10-08 11:58 | disposition home or self-care (01) | LOC: LAB.N 11:57 | PROVIDERS: ATTEND Obstetrics & Gynecology | DX: O26.893 Other specified pregnancy related conditions, third trimester (principal); Z3A.30 30 weeks gestation of pregnancy | CPT/HCPCS: 82239 ==

== ENCOUNTER 2023-10-20 16:30 | Outpatient (CLI) | payer MEDICAID ==
--- NOTE | 2023-10-21 16:58 | Ultrasound Report ---
PROCEDURE: Obstetric ultrasound Biophysical profile score INDICATIONS: CHOLESTASIS IN OUTSIDE/PRIOR DATING DATA: Last menstrual period (LMP): 03/10/2023. LMP-based estimated date of delivery (ROHAN): 12/15/2023. First dating scan (date and location): 05/12/2023. Estimated date of delivery (ROHAN) from first dating scan: 12/13/2023. TECHNIQUE: Real-time scanning was performed of the fetus, with image documentation and biometric measurements. Endovaginal scanning: Not performed. COMPARISON: None. FINDINGS: General: A single living intrauterine gestation is present. Presentation: Vertex Placenta: Placental position is posterior, without previa. Amniotic fluid index: 13 cm, within normal limits for gestational age. heart rate: 160 beats per minute. Maternal cervical canal: Not well seen biometrics: Biparietal diameter: 87 mm; 35 weeks 2 days Head circumference: 308 mm; 34 weeks 3 days Abdominal circumference: 20 78 mm; 31 weeks 6 days Femur length: 61 mm; 31 weeks 5 days Estimated gestational age from initial scan: 32 weeks 2 days Composite gestational age from present scan: 33 weeks 2 days Estimated weight and percentile: 1960 g, which is at the 42nd percentile for gestational age Measurement variability in biometric dating: +/- 10 days from 12-20 weeks gestation, +/- 2 weeks from 20-30 weeks gestation, +/- 3 weeks at 30 weeks gestation or more. Other: Limited survey of anatomy includes normal chest/diaphragm, stomach/abdomen, bilateral re nal regions, and urinary bladder/pelvis Biophysical profile score: Tone: 2 points Movement: 2 points Respiration: 0 points Largest pocket: 2 points IMPRESSION: 1. Single living intrauterine gestation. 2. Biparietal diameter and head circumference are at the 98th and 70th percentile for gestational age respectively. Remaining growth parameters are within expected limits. 3. Biophysical profile score is 6/8. Reviewed by: Yecenia Gloria MD on 10/21/2023 4:57 PM PST Approved by: Yecenia Gloria MD on 10/21/2023 4:57 PM PST Station ID: [id number]
== END 2023-10-20 16:31 | disposition home or self-care (01) ==
LOC: DI 16:30
PROVIDERS: ATTEND Obstetrics & Gynecology
DX: O26.613 Liver and biliary tract disorders in pregnancy, third trimester (principal); Z3A.33 33 weeks gestation of pregnancy

== ENCOUNTER 2023-10-24 11:24 | Outpatient (CLI) | payer MEDICAID ==
[2023-10-24 12:25] VITALS: BP 126/87; O2SAT 100
--- NOTE | 2023-10-24 14:08 | PROCEDURE REPORT ---
- HPI Diagnosis/Indication for NST: Gestational Hypertension Current EDU 12/15/23 Gestation 32 Weeks and 4 Days 2 Para 0 Vital Signs Temperature 98 F 10/24/23 12:15 Heart Rate 73 10/24/23 12:15 Respiratory Rate 18 10/24/23 12:15 Blood Pressure 128/92 H 10/24/23 12:15 Temperature 98 F 10/24/23 12:21 Heart Rate 73 10/24/23 12:21 Respiratory Rate 18 10/24/23 12:21 Blood Pressure 126/87 H 10/24/23 12:21 O2 Saturation 100 10/24/23 12:21 If not protocol: Oxygen Flow, liters/minute - NST Procedure NST Procedure Start Date 10/24/23 Start Time 12:02 Stop Time 13:00 Patient States Movement Yes 130 mod [place] + A cells no D cells reactive - Results and Plan Findings/Impression: reassuring status Plan: continue to follow up with scheduled ANC
== END 2023-10-24 12:45 | disposition home or self-care (01) ==
LOC: WFO 11:24 → FBP 11:56 → WFO 12:45
PROVIDERS: ATTEND Obstetrics & Gynecology
DX: O26.643 Intrahepatic cholestasis of pregnancy, third trimester (principal); K83.1 Obstruction of bile duct; Z3A.32 32 weeks gestation of pregnancy
CPT/HCPCS: 59025

== ENCOUNTER 2023-10-27 08:24 | Outpatient (CLI) | payer MEDICAID ==
[2023-10-27 08:50] LABS: EOSINOPHILS # (AUTO) 0.2 10^3/uL (0.0-0.7); EOSINOPHILS % (AUTO) 1.6 %; HGB - HEMOGLOBIN 10.1 g/dL (12.0-16.0)
[2023-10-27 08:53] LABS: BASOPHILS # (AUTO) 0.1 10^3/uL (0.0-0.1); BASOPHILS % (AUTO) 0.6 %; HCT - HEMATOCRIT 31.8 % (37.0-47.0); LYMPHOCYTES # (AUTO) 2.5 10^3/uL (1.5-3.5); LYMPHOCYTES % (AUTO) 22.5 %; MEAN CORPUSCULAR HEMOGLOBIN 25.4 pg (27.0-31.0); MEAN CORPUSCULAR HGB CONC 31.8 g/dL (32.0-36.0); MEAN CORPUSCULAR VOLUME 80.1 fL (81.0-99.0); MEAN PLATELET VOLUME 11.6 fL (7.9-10.8); MONOCYTES # (AUTO) 0.5 10^3/uL (0.0-1.0); MONOCYTES % (AUTO) 4.1 %; NEUTROPHILS # (AUTO) 7.8 10^3/uL (1.5-6.6); NEUTROPHILS % (AUTO) 70.8 %; PLT - PLATELET COUNT 325 10^3/uL (130-450); RED BLOOD COUNT 3.97 10^6/uL (4.20-5.40); RED CELL DISTRIBUTION WIDTH 14.1 % (12.0-15.0); WHITE BLOOD COUNT 11.1 x10^3/uL (4.8-10.8)
[2023-10-27 09:08] LABS: ALBUMIN 3.1 g/dL (3.2-5.5); ALBUMIN/GLOBULIN RATIO 0.9 (1.0-2.2); BILIRUBIN,TOTAL 0.4 mg/dL (0.2-1.0); CALCIUM 8.9 mg/dL (8.5-10.3); CREATININE 0.6 mg/dL (0.6-1.3); POTASSIUM 4.1 mmol/L (3.5-4.5); TOTAL PROTEIN 6.4 g/dL (6.4-8.9)
[2023-10-27 09:10] LABS: CREATININE,URINE 119.8 mg/dL; PROTEIN/CREATININE RATIO,URINE 0.3 (<=0.2)
[2023-10-27] MEDS ORDERED: LABETALOL 100 MG TABLET PO STA (12:18)
[2023-10-27 14:04] VITALS: BP 137/100
--- NOTE | 2023-10-27 19:00 | PROVIDER PROGRESS NOTE ---
- HPI Chief Complaint: Hypertension/PIH (patient with bp at home in 170s. did not feel well so came in for check. feels better now.) Current : Current EDU 12/15/23 Gestation 33 Weeks and 0 Days 2 Para 0 Vital Signs Temperature 98.1 F 10/27/23 08:33 Heart Rate 77 10/27/23 08:33 Respiratory Rate 16 10/27/23 08:33 Blood Pressure 137/100 H 10/27/23 08:33 Temperature 98.1 F 10/27/23 08:33 Heart Rate 77 10/27/23 08:33 Respiratory Rate 16 10/27/23 08:33 Blood Pressure 125/90 H 10/27/23 09:37 O2 Saturation If not protocol: Oxygen Flow, liters/minute - Exam pateint appears well. VS here are around 140s/90s. nothing in severe range. 1+ edema in lower extremities. - Procedures OB Procedure Performed: NST (NST is reactive. baseline 135. + acels. no decels. moderate variability.) Diagnosis/Indication for NST: Other (preeclampsia without severe features. cholestasis or .) NST Procedure: NST Procedure Start Date 10/27/23 Start Time 08:37 Stop Time 09:40 Vibroacoustic Stimulation Used No Patient States Movement Yes Service Date of procedure: 10/27/23 Findings: reactive as noted above. - Plan Plan: Patient now meets criteria for preeclampsia with bps elevated over 140/90 and 0.3 on her prot/cr ratio of her ureine. other labs nromal. no headaches now. no n/v. itching better with hydroxyzine for her cholestasis. unable to tolerate urodiol. has MFM appt with frieda Smith 11/04. we will send records. continue twice weekly NSTs, twice daily bp checks at home. start labetolol 100 mg bid. call if pressures are more than 150/100.
[2023-11-02 02:07] LABS: CHENODEOXYCHOLIC ACIDS 1.6 umol/L (.); CHOLIC ACIDS 3.1 umol/L (.); DEOXYCHOLIC ACIDS 1.5 umol/L (.); TOTAL BILE ACIDS 9.6 umol/L (.); URSODEOXYCHOLIC ACIDS 3.4 umol/L (.)
== END 2023-10-27 12:20 | disposition home or self-care (01) ==
LOC: WFO 08:24 → FBP 08:27 → WFO 12:20
PROVIDERS: ATTEND Obstetrics & Gynecology
DX: O14.03 Mild to moderate pre-eclampsia, third trimester (principal); Z3A.33 33 weeks gestation of pregnancy; O26.643 Intrahepatic cholestasis of pregnancy, third trimester; K83.1 Obstruction of bile duct
CPT/HCPCS: 36415; 59025; 80053; 82542; 82570; 84156; 84550; 85025; 99215; A9270

== ENCOUNTER 2023-10-31 12:02 | Outpatient (CLI) | payer MEDICAID ==
--- NOTE | 2023-10-31 14:27 | PROCEDURE REPORT ---
- HPI Diagnosis/Indication for NST: Other (Cholestasis of ) - NST Procedure NST Procedure Start Time 08:37 Stop Time 09:40 145, moderate variability, positive accelerations, 1 variable decelerations otherwise no decelerations. Reactive NST 33+5 weeks. - Results and Plan Plan: Patient is a 28-year-old -0-1-0 at 33+5 weeks for NST secondary to ch olestasis of . Patient had 1 variable decel on NST, biophysical profile ordered and was 8 out of 8. Patient feels well denies denies headache, changes in vision, right upper quadrant pain. She is on urisodiol and has not had improvement in pruritus. Kick counting and labor precautions were reviewed and patient was discharged home.
--- NOTE | 2023-10-31 14:37 | Ultrasound Report ---
PROCEDURE: OB Biophysical Profile INDICATIONS: cholestasis OUTSIDE/PRIOR DATING DATA: Last menstrual period (LMP): 03/10/2023. LMP-based estimated date of delivery (ROHAN): 12/15/2023. First dating scan (date and location): 05/12/2023. Estimated date of delivery (ROHAN) from first dating scan: 12/13/2023. The below data below was generated using the first trimester ultrasound ROHAN of 12/13/2023 TECHNIQUE: Real-time scanning was performed of the fetus, with image documentation and biometric yamel surements. Biophysical profile was also obtained. Endovaginal scanning: Was not performed COMPARISON: October 20, 2023 FINDINGS: General: A single living intrauterine gestation is present. Presentation: Vertex Placenta: Placental position is posterior, without previa. Amniotic fluid index: 14.1 cm, 48.8 for gestational age. heart rate: 145 beats per minute. Maternal cervical canal: Closed ; normal length is 2.5 cm or more. biometrics: Not measured Biophysical profile: Tone: 2 points. Movement: 2 points. Respiration: 2 points. Largest pocket of fluid: 2 points. Umbilical artery Doppler: SD ratios: 2.2-2.5. RI: 0.55-0.61 IMPRESSION: Normal biophysical profile with CORD Dopplers as above. Reviewed by: Prateek Bell MD on 10/31/2023 1:35 PM [facility] Approved by: Prateek Bell MD on 10/31/2023 1:35 PM [facility] Station ID: [id number]
[2023-10-31 16:41] VITALS: BP 129/89
== END 2023-10-31 15:15 | disposition home or self-care (01) ==
LOC: WFO 12:02 → FBP 12:03 → WFO 15:15
PROVIDERS: ATTEND Obstetrics & Gynecology Obstetrics
DX: O26.643 Intrahepatic cholestasis of pregnancy, third trimester (principal); K83.1 Obstruction of bile duct; Z3A.33 33 weeks gestation of pregnancy; Z79.899 Other long term (current) drug therapy
CPT/HCPCS: 59025; 99215

== ENCOUNTER 2023-11-04 16:55 | Outpatient (CLI) | payer MEDICAID ==
[2023-11-04 17:28] VITALS: BP 127/86
--- NOTE | 2023-11-04 18:32 | PROCEDURE REPORT ---
- HPI Diagnosis/Indication for NST: Other (cholestasis and hypertension in ) Current EDU 12/15/23 Gestation 34 Weeks and 1 Days 2 Para 0 Vital Signs Temperature 208.8 F H 11/04/23 17:13 Heart Rate 72 11/04/23 17:13 Respiratory Rate 18 11/04/23 17:13 Blood Pressure 131/88 H 11/04/23 17:13 Temperature 208.8 F H 11/04/23 17:13 Heart Rate 72 11/04/23 17:13 Respiratory Rate 18 11/04/23 17:13 Blood Pressure 127/86 H 11/04/23 17:23 O2 Saturation If not protocol: Oxygen Flow, liters/minute - NST Procedure NST Procedure Start Date 11/04/23 Start Time 17:08 Stop Time 18:20 Patient States Movement Yes NST reviewed in real time. baseline 145. acels 15x15 after bathroom. no decels. moderate variability. - Results and Plan Findings/Impression: reactive nst. Plan: care as scheduled.
== END 2023-11-04 18:30 | disposition home or self-care (01) ==
LOC: WFO 16:55 → FBP 16:57 → WFO 18:30
PROVIDERS: ATTEND Obstetrics & Gynecology
DX: O26.643 Intrahepatic cholestasis of pregnancy, third trimester (principal); K83.1 Obstruction of bile duct; O13.3 Gestational [pregnancy-induced] hypertension without significant proteinuria, third trimester; Z3A.34 34 weeks gestation of pregnancy
CPT/HCPCS: 59025

== ENCOUNTER 2023-11-07 11:58 | Outpatient (CLI) | payer MEDICAID ==
[2023-11-07 12:41] VITALS: BP 117/86
--- NOTE | 2023-11-07 12:52 | PROCEDURE REPORT ---
- HPI Vital Signs Temperature 98.2 F 11/07/23 12:28 Heart Rate 69 11/07/23 12:28 Respiratory Rate 18 11/07/23 12:28 Blood Pressure 117/86 H 11/07/23 12:28 Temperature 98.2 F 11/07/23 12:28 Heart Rate 69 11/07/23 12:28 Respiratory Rate 18 11/07/23 12:28 Blood Pressure 117/86 H 11/07/23 12:28 O2 Saturation If not protocol: Oxygen Flow, liters/minute - NST Procedure NST Procedure Start Time 17:08 Stop Time 18:00 - Results and Plan Plan: Patient is a 28-year-old -0-1-0 at 34 weeks gestation here for scheduled NST. NST Performed 11/07/2023 NST Read 11/07/2023 FHT: 145 bpm baseline, moderate variability, accelerations present, no decelerations. 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
== END 2023-11-07 13:00 | disposition home or self-care (01) ==
LOC: WFO 11:58 → FBP 12:28 → WFO 13:00
PROVIDERS: ATTEND Obstetrics & Gynecology
DX: O26.643 Intrahepatic cholestasis of pregnancy, third trimester (principal); K83.1 Obstruction of bile duct; Z3A.34 34 weeks gestation of pregnancy
CPT/HCPCS: 59025

== ENCOUNTER 2023-11-11 17:05 | Outpatient (CLI) | payer MEDICAID ==
[2023-11-11 17:28] VITALS: BP 129/94; O2SAT 96
--- NOTE | 2023-11-11 18:28 | PROCEDURE REPORT ---
- HPI Diagnosis/Indication for NST: Other (cholestasis, pre-eclampsia) Vital Signs Temperature 98.2 F 11/11/23 17:24 Heart Rate 74 11/11/23 17:24 Respiratory Rate 15 11/11/23 17:24 Blood Pressure 133/95 H 11/11/23 17:24 O2 Saturation 96 11/11/23 17:24 Temperature 98.2 F 11/11/23 17:25 Heart Rate 74 11/11/23 17:24 Respiratory Rate 15 11/11/23 17:24 Blood Pressure 129/94 H 11/11/23 17:27 O2 Saturation 96 11/11/23 17:24 If not protocol: Oxygen Flow, liters/minute - NST Procedure NST Procedure Start Time 12:25 Stop Time 12:55 35+1 weeks cholestasis of and pre-eclampsia 140, moderate variability, +accels, no decels reactive NST
== END 2023-11-11 18:30 | disposition home or self-care (01) ==
LOC: WFO 17:05 → FBP 17:08 → WFO 18:30
PROVIDERS: ATTEND Obstetrics & Gynecology
DX: O26.643 Intrahepatic cholestasis of pregnancy, third trimester (principal); K83.1 Obstruction of bile duct; Z3A.35 35 weeks gestation of pregnancy; O14.93 Unspecified pre-eclampsia, third trimester
CPT/HCPCS: 59025

== ENCOUNTER 2023-11-14 12:02 | Outpatient (CLI) | payer MEDICAID ==
[2023-11-14 12:20] VITALS: BP 128/89
--- NOTE | 2023-11-15 11:15 | PROCEDURE REPORT ---
- HPI Diagnosis/Indication for NST: Other (cholestasis) Current EDU 12/15/23 Gestation 35 Weeks and 4 Days 2 Para 0 Vital Signs Temperature 99.1 F 11/14/23 12:17 Heart Rate 78 11/14/23 12:17 Respiratory Rate 16 11/14/23 12:17 Blood Pressure 128/89 H 11/14/23 12:17 Temperature 99.1 F 11/14/23 12:17 Heart Rate 78 11/14/23 12:17 Respiratory Rate 16 11/14/23 12:17 Blood Pressure 128/89 H 11/14/23 12:17 O2 Saturation If not protocol: Oxygen Flow, liters/minute - NST Procedure NST Procedure Start Date 11/14/23 Start Time 12:10 Stop Time 12:40 Vibroacoustic Stimulation Used No Patient States Movement Yes - Results and Plan Findings/Impression: 145 mod [place] + A cells no D cells reactive reassuring Plan: precautions and instructions reviewed continue scheduled care
== END 2023-11-14 12:41 | disposition home or self-care (01) ==
LOC: WFO 12:02 → FBP 12:04 → WFO 12:41
PROVIDERS: ATTEND Obstetrics & Gynecology
DX: O26.643 Intrahepatic cholestasis of pregnancy, third trimester (principal); K83.1 Obstruction of bile duct; Z3A.35 35 weeks gestation of pregnancy
CPT/HCPCS: 59025

== ENCOUNTER 2023-11-18 08:00 | Outpatient (CLI) | payer MEDICAID | END 2023-11-18 23:59 | disposition home or self-care (01) | LOC: LAB.WC 08:00 | PROVIDERS: ATTEND Obstetrics & Gynecology | DX: O26.643 Intrahepatic cholestasis of pregnancy, third trimester (principal); K83.1 Obstruction of bile duct; Z36.85 Encounter for antenatal screening for Streptococcus B | CPT/HCPCS: 87797 ==

== ENCOUNTER 2023-11-18 16:52 | Outpatient (CLI) | payer MEDICAID ==
[2023-11-18 17:17] LABS: BASOPHILS # (AUTO) 0.1 10^3/uL (0.0-0.1); BASOPHILS % (AUTO) 0.5 %; EOSINOPHILS # (AUTO) 0.1 10^3/uL (0.0-0.7); EOSINOPHILS % (AUTO) 0.8 %; HGB - HEMOGLOBIN 9.7 g/dL (12.0-16.0); LYMPHOCYTES # (AUTO) 2.9 10^3/uL (1.5-3.5); LYMPHOCYTES % (AUTO) 23.7 %; MEAN CORPUSCULAR HEMOGLOBIN 24.5 pg (27.0-31.0); MEAN CORPUSCULAR HGB CONC 31.3 g/dL (32.0-36.0); MEAN CORPUSCULAR VOLUME 78.3 fL (81.0-99.0); MEAN PLATELET VOLUME 11.5 fL (7.9-10.8); MONOCYTES # (AUTO) 0.7 10^3/uL (0.0-1.0); MONOCYTES % (AUTO) 5.7 %; NEUTROPHILS # (AUTO) 8.3 10^3/uL (1.5-6.6); NEUTROPHILS % (AUTO) 69.1 %; PLT - PLATELET COUNT 332 10^3/uL (130-450); RED BLOOD COUNT 3.96 10^6/uL (4.20-5.40); RED CELL DISTRIBUTION WIDTH 15.8 % (12.0-15.0); WHITE BLOOD COUNT 12.1 x10^3/uL (4.8-10.8)
[2023-11-18 17:35] LABS: ALBUMIN 3.1 g/dL (3.2-5.5); ALBUMIN/GLOBULIN RATIO 0.9 (1.0-2.2); BILIRUBIN,TOTAL 0.4 mg/dL (0.2-1.0); CALCIUM 8.8 mg/dL (8.5-10.3); CREATININE 0.7 mg/dL (0.6-1.3); POTASSIUM 4.5 mmol/L (3.5-4.5); TOTAL PROTEIN 6.5 g/dL (6.4-8.9)
[2023-11-18 18:39] VITALS: O2SAT 97
[2023-11-18 18:40] LABS: PROTEIN/CREATININE RATIO,URINE 1.6 (<=0.2)
[2023-11-18 19:46] VITALS: BP 142/94
--- NOTE | 2023-11-18 20:36 | PROCEDURE REPORT ---
- HPI Current Current EDU 12/15/23 Gestation 36 Weeks 2 Para 0 Vital Signs Temperature 98.1 F 11/18/23 17:03 Heart Rate 99 11/18/23 17:03 Respiratory Rate 20 11/18/23 17:03 Blood Pressure 140/94 H 11/18/23 17:03 O2 Saturation 97 11/18/23 17:03 - NST Procedure NST Procedure Start Date 11/18/23 Start Time 17:00 Stop Time 18:52 Vibroacoustic Stimulation Used No Patient States Movement Yes - Results and Plan Plan: Patient is a 28-year-old G2, P0 at 36 weeks 1 day gestation here for scheduled NST. NST Performed 11/18/2023 NST Read 1 11/18/2023 FHT: 145 bpm baseline, moderate variability, accelerations present, no decelerations. Reactive NST [place]: Occasional Diagnosis 36 weeks gestation Intrapartum cholestasis of Preeclampsia without severe features Continue with scheduled NST.
== END 2023-11-18 19:25 | disposition home or self-care (01) ==
LOC: WFO 16:52 → FBP 16:54 → WFO 19:25
PROVIDERS: ATTEND Obstetrics & Gynecology
DX: O14.03 Mild to moderate pre-eclampsia, third trimester (principal); O26.643 Intrahepatic cholestasis of pregnancy, third trimester; K83.1 Obstruction of bile duct; Z3A.36 36 weeks gestation of pregnancy
CPT/HCPCS: 36415; 59025; 80053; 82570; 84156; 84550; 85025; 87797; 99215

== ENCOUNTER 2023-11-20 17:13 | Inpatient (IN) | payer MEDICAID ==
[2023-11-20] MEDS ORDERED: LABETALOL 100 MG TABLET PO STA (18:03)
[2023-11-20] MEDS ORDERED: ACETAMINOPHEN 325 MG TABLET PO STA (18:04)
--- NOTE | 2023-11-20 18:07 | PROCEDURE REPORT ---
- HPI Diagnosis/Indication for NST: Gestational Hypertension Current EDU 12/15/23 Gestation 36 Weeks and 3 Days 2 Para 0 Vital Signs Temperature 98.2 F 11/20/23 17:20 Heart Rate 79 11/20/23 17:20 Respiratory Rate 18 11/20/23 17:20 Blood Pressure 138/109 H 11/20/23 17:20 Temperature 98.2 F 11/20/23 17:20 Heart Rate 79 11/20/23 17:20 Respiratory Rate 18 11/20/23 17:20 Blood Pressure 149/111 H 11/20/23 17:30 O2 Saturation If not protocol: Oxygen Flow, liters/minute - NST Procedure NST Procedure Start Date 11/20/23 Start Time 17:23 Stop Time 17:50 Vibroacoustic Stimulation Used No Patient States Movement Yes nst baseline about 135. + acels no decels. moderate variability - Results and Plan Findings/Impression: reactive NST. bp elevated meeting criteria of severe preeclampsia Plan: admit for induction
[2023-11-20] MEDS ORDERED: ACETAMINOPHEN 500 MG TABLET PO PRN (18:26)
[2023-11-20] MEDS ORDERED: LABETALOL 20 MG/4 ML SYRINGE IVP PRN ×3 (18:26)
[2023-11-20] MEDS ORDERED: hydrALAZINE INJ 20 MG/ML VIAL IVP PRN ×2 (18:26)
[2023-11-20] MEDS ORDERED: TERBUTALINE 1 MG/ML VIAL SUBQ PRN (18:26)
[2023-11-20] MEDS ORDERED: OXYTOCIN/SODIUM CHLORIDE 500 ML IV PRN (18:26)
[2023-11-20] MEDS ORDERED: TRANEXAMIC ACID IN NACL 1,000 MG/100 ML BAG IV PRN (18:26)
[2023-11-20] MEDS ORDERED: MAGNESIUM SULFATE 4 GRAM 4 GM/50 ML BAG IV ONE (18:26)
[2023-11-20] MEDS ORDERED: CARBOPROST TROMETHAMINE 250 MCG/ML AMP IM PRN (18:26)
[2023-11-20] MEDS ORDERED: OXYTOCIN 10 UNIT/ML VIAL IM PRN (18:26)
[2023-11-20] MEDS ORDERED: LACTATED RINGERS 1,000 ML IV PRN (18:26)
[2023-11-20] MEDS ORDERED: METOCLOPRAMIDE 10 MG TABLET PO PRN (18:26)
[2023-11-20] MEDS ORDERED: NIFEdipine 10 MG CAPSULE PO PRN (18:26)
[2023-11-20] MEDS ORDERED: miSOPROStoL 200 MCG TABLET BC PRN (18:26)
[2023-11-20] MEDS ORDERED: miSOPROStoL 200 MCG TABLET PR PRN (18:26)
[2023-11-20] MEDS ORDERED: lidocaine 1% 20 ML MDV ID PRN (18:26)
--- NOTE | 2023-11-20 18:36 | HISTORY & PHYSICAL EXAMINATION ---
Admit History - Visit Reason Visit Reason: Other (severe range bps when here for NST) - : 2 Parity: 0 : 1 Care: positive: [facility] Risk/History: positive: Pre-eclampsia, Other (preeclampsia on labetolol for a few weeks. Cholestasis.) Smoking Status: Never smoker - Mother's Labs Mother's Blood Type: positive: A Mother's RH: positive: Positive GBS: positive: Group B Step Negative Rubella Status: positive: Immune - Other Maternal History Other Maternal History: prior baby with trisomy 18 - HPI Current EDU 12/15/23 Gestation 36 Weeks and 3 Days 2 Para 0 Vital Signs Temperature 98.2 F 11/20/23 17:20 Heart Rate 79 11/20/23 17:20 Respiratory Rate 18 11/20/23 17:20 Blood Pressure 138/109 H 11/20/23 17:20 Temperature 98.2 F 11/20/23 17:20 Heart Rate 79 11/20/23 17:20 Respiratory Rate 18 11/20/23 17:20 Blood Pressure 149/111 H 11/20/23 17:30 O2 Saturation If not protocol: Oxygen Flow, liters/minute - NST Procedure NST Procedure Start Date 11/20/23 Start Time 17:23 Stop Time 17:50 Vibroacoustic Stimulation Used No Patient States Movement Yes Meds/Allgy - Home Medications Home Medications: Ambulatory Orders Medication Instructions Recorded Confirmed Gabapentin [Neurontin] 100 mg PO DAILY 04/18/21 04/18/21 168/Iron/Folic/Omega3 04/18/21 [One-A-Day -1 Softgel] Ondansetron Odt [Zofran] 4 mg TL Q6H PRN #20 tablet 04/19/21 Promethazine Supp [Phenergan Supp] 25 mg AZ Q6HR PRN #20 supp 04/19/21 Promethazine Supp [Phenergan Supp] 25 mg AZ Q6HR PRN #15 supp 02/25/23 Ferrous Sulfate [Feosol] 325 mg PO DAILY #90 tablet 10/27/23 Labetalol [Trandate] 100 mg PO BID #90 tablet 10/27/23 - Allergies Allergies/Adverse Reactions: Allergies Allergy/AdvReac Type Severity Reaction Status Date / Time No Known Drug Allergies Allergy Verified 02/25/23 18:11 Review of Systems - Cardiovascular Cariovascular: reports: Edema (significant in her feet into legs. worse this am, a bit better now.) - Gastrointestinal Gastrointestinal: denies: Abdominal pain - Neurological Neurological: reports: Headache (03/02 starting when she came to [facility]. not prior at home. no visual changes.) Physical - Abdominal Exam Vital Signs: Temp Pulse Resp BP Pulse Ox O2 Flow Rate 98.2 F 79 18 149/111 H 11/20/23 17:20 11/20/23 17:20 11/20/23 17:20 11/20/23 17:30 Contraction Frequency (min/apart): minimal Contraction Intensity: positive: Mild Uterine Resting Tone: positive: Soft - Monitoring Strip Review: positive: Category I - Presentation Presentation: positive: Vertex - Vaginal Exam Membranes: positive: Membranes intact Dilation (in cm): 1.5 Effacement (%): 80 Station: positive: -2 Cervical Position: positive: Anterior - Speculum Exam Speculum Exam Performed: positive: No - Other Notes Labor Progress Note/Additional Text: Ultrasound done and baby is vertex. Plan for Labor - Plan For Labor I expect patient to be DC'd or transferred within 96 hours.: Yes Plan for Labor: 36 weeks 3 days with cholestasis and now severe range bps. will admit for labor induction. induction discussed. consents signed. Magnesium for seizure prophylaxis. will start with miso. orders placed. 100 mg of labetolol given on admit. will treat bp as needed. pateint and her agree with plan.
[2023-11-20] MEDS ORDERED: LACTATED RINGERS 1,000 ML IV SCH (19:00)
[2023-11-20 19:11] LABS: BASOPHILS % (AUTO) 0.4 %; EOSINOPHILS # (AUTO) 0.1 10^3/uL (0.0-0.7); EOSINOPHILS % (AUTO) 1.1 %; HCT - HEMATOCRIT 31.4 % (37.0-47.0); HGB - HEMOGLOBIN 9.7 g/dL (12.0-16.0); LYMPHOCYTES # (AUTO) 2.6 10^3/uL (1.5-3.5); LYMPHOCYTES % (AUTO) 25.5 %; MEAN CORPUSCULAR HEMOGLOBIN 24.1 pg (27.0-31.0); MEAN CORPUSCULAR HGB CONC 30.9 g/dL (32.0-36.0); MEAN CORPUSCULAR VOLUME 77.9 fL (81.0-99.0); MEAN PLATELET VOLUME 12.1 fL (7.9-10.8); MONOCYTES # (AUTO) 0.6 10^3/uL (0.0-1.0); MONOCYTES % (AUTO) 5.6 %; NEUTROPHILS # (AUTO) 6.8 10^3/uL (1.5-6.6); PLT - PLATELET COUNT 348 10^3/uL (130-450); RED BLOOD COUNT 4.03 10^6/uL (4.20-5.40); RED CELL DISTRIBUTION WIDTH 15.9 % (12.0-15.0); WHITE BLOOD COUNT 10.1 x10^3/uL (4.8-10.8)
[2023-11-20 19:22] LABS: ALBUMIN/GLOBULIN RATIO 0.8 (1.0-2.2); BILIRUBIN,TOTAL 0.4 mg/dL (0.2-1.0); CALCIUM 8.9 mg/dL (8.5-10.3); CREATININE 0.7 mg/dL (0.6-1.3); POTASSIUM 4.2 mmol/L (3.5-4.5); TOTAL PROTEIN 6.8 g/dL (6.4-8.9)
[2023-11-20] MEDS: MAGNESIUM SULFATE IN WATER 20 GM/500 ML IV.SOLN IV SCH (19:32)
[2023-11-20] MEDS: miSOPROStoL 100 MCG TABLET VG SCH (20:51)
[2023-11-20] MEDS ORDERED: LABETALOL 100 MG TABLET PO ONE (21:00)
--- NOTE | 2023-11-20 21:55 | PROVIDER PROGRESS NOTE ---
Subjective - Subjective Subjective: review of vitals and FHT. sp oral labetolol for elevated bp. good now. baby category 1. labs reviewed and ok. Objective - Vital Signs/Intake & Output Vital Signs: Vital Signs x48h Temp Pulse Pulse Resp BP BP BP 11/20/23 19:00 97.9 F 77 20 155/106 H 11/20/23 18:47 97.9 F 81 11/20/23 17:30 149/111 H 11/20/23 17:28 147/110 H 11/20/23 17:24 146/108 H 11/20/23 17:20 98.2 F 79 18 138/109 H Intake & Output: Intake & Output 11/17/23 11/18/23 11/19/23 11/20/23 23:59 23:59 23:59 23:59 Intake Total 450 Output Total 200 Balance 250 - Lab Results Fish Bones: 11/20/23 18:31 11/20/23 18:31 Other Labs: Lab Results x24hrs 11/20/23 11/20/23 11/20/23 Range/Units 18:31 18:31 18:31 WBC 10.1 (4.8-10.8) x10^3/uL RBC 4.03 L (4.20-5.40) 10^6/uL Hgb 9.7 L (12.0-16.0) g/dL Hct 31.4 L (37.0-47.0) % MCV 77.9 L (81.0-99.0) fL MCH 24.1 L (27.0-31.0) pg MCHC 30.9 L (32.0-36.0) g/dL RDW 15.9 H (12.0-15.0) % Plt Count 348 (130-450) 10^3/uL MPV 12.1 H (7.9-10.8) fL Neut # (Auto) 6.8 H (1.5-6.6) 10^3/uL Lymph # (Auto) 2.6 (1.5-3.5) 10^3/uL [place] # (Auto) 0.6 (0.0-1.0) 10^3/uL Eos # (Auto) 0.1 (0.0-0.7) 10^3/uL Baso # (Auto) 0.0 (0.0-0.1) 10^3/uL Absolute Nucleated RBC 0.00 x10^3/uL Nucleated RBC % 0.0 /100WBC Sodium 133 L (135-145) mmol/L Potassium 4.2 (3.5-4.5) mmol/L Chloride 103 (101-111) mmol/L Carbon Dioxide 22 (21-32) mmol/L Anion Gap 8.0 (6-13) BUN 14 (6-20) mg/dL Creatinine 0.7 (0.6-1.3) mg/dL Estimated GFR (MDRD) 101 (>89) Glucose 88 (74-104) mg/dL Uric Acid (2.3-6.6) mg/dL Calcium 8.9 (8.5-10.3) mg/dL Total Bilirubin 0.4 (0.2-1.0) mg/dL AST 29 (10-42) IU/L ALT 47 (10-60) IU/L Alkaline Phosphatase 511 H (42-121) IU/L Total Protein 6.8 (6.4-8.9) g/dL Albumin 3.0 L (3.2-5.5) g/dL Globulin 3.8 (2.1-4.2) g/dL Albumin/Globulin Ratio 0.8 L (1.0-2.2) TSH (0.34-5.60) uIU/mL Blood Type A POSITIVE Antibody Screen NEGATIVE 11/20/23 11/20/23 Range/Units 18:31 18:31 WBC (4.8-10.8) x10^3/uL RBC (4.20-5.40) 10^6/uL Hgb (12.0-16.0) g/dL Hct (37.0-47.0) % MCV (81.0-99.0) fL MCH (27.0-31.0) pg MCHC (32.0-36.0) g/dL RDW (12.0-15.0) % Plt Count (130-450) 10^3/uL MPV (7.9-10.8) fL Neut # (Auto) (1.5-6.6) 10^3/uL Lymph # (Auto) (1.5-3.5) 10^3/uL [place] # (Auto) (0.0-1.0) 10^3/uL Eos # (Auto) (0.0-0.7) 10^3/uL Baso # (Auto) (0.0-0.1) 10^3/uL Absolute Nucleated RBC x10^3/uL Nucleated RBC % /100WBC Sodium (135-145) mmol/L Potassium (3.5-4.5) mmol/L Chloride (101-111) mmol/L Carbon Dioxide (21-32) mmol/L Anion Gap (6-13) BUN (6-20) mg/dL Creatinine (0.6-1.3) mg/dL Estimated GFR (MDRD) (>89) Glucose (74-104) mg/dL Uric Acid 5.3 (2.3-6.6) mg/dL Calcium (8.5-10.3) mg/dL Total Bilirubin (0.2-1.0) mg/dL AST (10-42) IU/L ALT (10-60) IU/L Alkaline Phosphatase (42-121) IU/L Total Protein (6.4-8.9) g/dL Albumin (3.2-5.5) g/dL Globulin (2.1-4.2) g/dL Albumin/Globulin Ratio (1.0-2.2) TSH 2.94 (0.34-5.60) uIU/mL Blood Type Antibody Screen Assessment/Plan - Problem List (1) Severe preeclampsia Impression: labs ok. baby category 1. more labetolol needed for bp and will dose prn. continue induction. on mag for seizure prophylaxis. Qualifiers: Trimester: third trimester Qualified Code(s): O14.13 - Severe pre- eclampsia, third trimester
[2023-11-21] MEDS: ONDANSETRON ODT 4 MG TABLET PO PRN ×2 (00:31→05:25)
[2023-11-21] MEDS: miSOPROStoL 100 MCG TABLET VG SCH ×3 (01:04→13:09)
[2023-11-21] MEDS: fentaNYL 100 MCG/2 ML VIAL IVP PRN ×2 (01:18→06:38)
[2023-11-21] MEDS: SODIUM CHLORIDE FLUSH 0.9% 10 ML SYRINGE IVP PRN ×2 (01:20→06:41)
[2023-11-21] MEDS: MAGNESIUM SULFATE IN WATER 20 GM/500 ML IV.SOLN IV SCH ×2 (02:59→13:09)
[2023-11-21] MEDS ORDERED: LABETALOL 100 MG TABLET PO ONE ×3 (03:00→20:12)
[2023-11-21 06:23] LABS: BASOPHILS # (AUTO) 0.1 10^3/uL (0.0-0.1); BASOPHILS % (AUTO) 0.5 %; EOSINOPHILS # (AUTO) 0.1 10^3/uL (0.0-0.7); HCT - HEMATOCRIT 30.8 % (37.0-47.0); HGB - HEMOGLOBIN 9.5 g/dL (12.0-16.0); LYMPHOCYTES # (AUTO) 2.4 10^3/uL (1.5-3.5); LYMPHOCYTES % (AUTO) 24.1 %; MEAN CORPUSCULAR HEMOGLOBIN 24.1 pg (27.0-31.0); MEAN CORPUSCULAR HGB CONC 30.8 g/dL (32.0-36.0); MEAN CORPUSCULAR VOLUME 78.2 fL (81.0-99.0); MEAN PLATELET VOLUME 11.9 fL (7.9-10.8); MONOCYTES # (AUTO) 0.6 10^3/uL (0.0-1.0); MONOCYTES % (AUTO) 5.6 %; NEUTROPHILS # (AUTO) 6.9 10^3/uL (1.5-6.6); NEUTROPHILS % (AUTO) 68.4 %; PLT - PLATELET COUNT 333 10^3/uL (130-450); RED BLOOD COUNT 3.94 10^6/uL (4.20-5.40); RED CELL DISTRIBUTION WIDTH 15.9 % (12.0-15.0); WHITE BLOOD COUNT 10.1 x10^3/uL (4.8-10.8)
[2023-11-21 06:38] LABS: ALBUMIN 3.1 g/dL (3.2-5.5); ALBUMIN/GLOBULIN RATIO 0.8 (1.0-2.2); BILIRUBIN,TOTAL 0.4 mg/dL (0.2-1.0); CALCIUM 7.7 mg/dL (8.5-10.3); CREATININE 0.7 mg/dL (0.6-1.3); MAGNESIUM 4.9 mg/dL (1.7-2.3); POTASSIUM 4.2 mmol/L (3.5-4.5); TOTAL PROTEIN 6.9 g/dL (6.4-8.9)
--- NOTE | 2023-11-21 07:16 | PROVIDER PROGRESS NOTE ---
Subjective - Prog Note Date Prog Note Date: 11/21/23 Prog Note Time: 07:14 - Subjective Subjective: headache, some discomfort with contractions, vomiting. took tylenol and then vomited it up. fentanyl iv dose. has had labetolol 100 mg po dose twice over night. Objective - Vital Signs/Intake & Output Intake & Output: Intake & Output 11/18/23 11/19/23 11/20/23 11/21/23 23:59 23:59 23:59 23:59 Intake Total 450 1172.5 Output Total 200 1150 Balance 250 22.5 - Lab Results Fish Bones: 11/21/23 06:11 11/21/23 06:11 Other Labs: Lab Results x24hrs 11/21/23 11/21/23 11/20/23 Range/Units 06:11 06:11 18:31 WBC 10.1 (4.8-10.8) x10^3/uL RBC 3.94 L (4.20-5.40) 10^6/uL Hgb 9.5 L (12.0-16.0) g/dL Hct 30.8 L (37.0-47.0) % MCV 78.2 L (81.0-99.0) fL MCH 24.1 L (27.0-31.0) pg MCHC 30.8 L (32.0-36.0) g/dL RDW 15.9 H (12.0-15.0) % Plt Count 333 (130-450) 10^3/uL MPV 11.9 H (7.9-10.8) fL Neut # (Auto) 6.9 H (1.5-6.6) 10^3/uL Lymph # (Auto) 2.4 (1.5-3.5) 10^3/uL [place] # (Auto) 0.6 (0.0-1.0) 10^3/uL Eos # (Auto) 0.1 (0.0-0.7) 10^3/uL Baso # (Auto) 0.1 (0.0-0.1) 10^3/uL Absolute Nucleated RBC 0.00 x10^3/uL Nucleated RBC % 0.0 /100WBC Sodium 131 L 133 L (135-145) mmol/L Potassium 4.2 4.2 (3.5-4.5) mmol/L Chloride 100 L 103 (101-111) mmol/L Carbon Dioxide 25 22 (21-32) mmol/L Anion Gap 6.0 8.0 (6-13) BUN 13 14 (6-20) mg/dL Creatinine 0.7 0.7 (0.6-1.3) mg/dL Estimated GFR (MDRD) 101 101 (>89) Glucose 96 88 (74-104) mg/dL Uric Acid (2.3-6.6) mg/dL Calcium 7.7 L 8.9 (8.5-10.3) mg/dL Magnesium 4.9 H (1.7-2.3) mg/dL Total Bilirubin 0.4 0.4 (0.2-1.0) mg/dL AST 28 29 (10-42) IU/L ALT 50 47 (10-60) IU/L Alkaline Phosphatase 524 H 511 H (42-121) IU/L Total Protein 6.9 6.8 (6.4-8.9) g/dL Albumin 3.1 L 3.0 L (3.2-5.5) g/dL Globulin 3.8 3.8 (2.1-4.2) g/dL Albumin/Globulin Ratio 0.8 L 0.8 L (1.0-2.2) TSH (0.34-5.60) uIU/mL Blood Type Antibody Screen 11/20/23 11/20/23 11/20/23 Range/Units 18:31 18:31 18:31 WBC 10.1 (4.8-10.8) x10^3/uL RBC 4.03 L (4.20-5.40) 10^6/uL Hgb 9.7 L (12.0-16.0) g/dL Hct 31.4 L (37.0-47.0) % MCV 77.9 L (81.0-99.0) fL MCH 24.1 L (27.0-31.0) pg MCHC 30.9 L (32.0-36.0) g/dL RDW 15.9 H (12.0-15.0) % Plt Count 348 (130-450) 10^3/uL MPV 12.1 H (7.9-10.8) fL Neut # (Auto) 6.8 H (1.5-6.6) 10^3/uL Lymph # (Auto) 2.6 (1.5-3.5) 10^3/uL [place] # (Auto) 0.6 (0.0-1.0) 10^3/uL Eos # (Auto) 0.1 (0.0-0.7) 10^3/uL Baso # (Auto) 0.0 (0.0-0.1) 10^3/uL Absolute Nucleated RBC 0.00 x10^3/uL Nucleated RBC % 0.0 /100WBC Sodium (135-145) mmol/L Potassium (3.5-4.5) mmol/L Chloride (101-111) mmol/L Carbon Dioxide (21-32) mmol/L Anion Gap (6-13) BUN (6-20) mg/dL Creatinine (0.6-1.3) mg/dL Estimated GFR (MDRD) (>89) Glucose (74-104) mg/dL Uric Acid 5.3 (2.3-6.6) mg/dL Calcium (8.5-10.3) mg/dL Magnesium (1.7-2.3) mg/dL Total Bilirubin (0.2-1.0) mg/dL AST (10-42) IU/L ALT (10-60) IU/L Alkaline Phosphatase (42-121) IU/L Total Protein (6.4-8.9) g/dL Albumin (3.2-5.5) g/dL Globulin (2.1-4.2) g/dL Albumin/Globulin Ratio (1.0-2.2) TSH (0.34-5.60) uIU/mL Blood Type A POSITIVE Antibody Screen NEGATIVE 11/20/23 Range/Units 18:31 WBC (4.8-10.8) x10^3/uL RBC (4.20-5.40) 10^6/uL Hgb (12.0-16.0) g/dL Hct (37.0-47.0) % MCV (81.0-99.0) fL MCH (27.0-31.0) pg MCHC (32.0-36.0) g/dL RDW (12.0-15.0) % Plt Count (130-450) 10^3/uL MPV (7.9-10.8) fL Neut # (Auto) (1.5-6.6) 10^3/uL Lymph # (Auto) (1.5-3.5) 10^3/uL [place] # (Auto) (0.0-1.0) 10^3/uL Eos # (Auto) (0.0-0.7) 10^3/uL Baso # (Auto) (0.0-0.1) 10^3/uL Absolute Nucleated RBC x10^3/uL Nucleated RBC % /100WBC Sodium (135-145) mmol/L Potassium (3.5-4.5) mmol/L Chloride (101-111) mmol/L Carbon Dioxide (21-32) mmol/L Anion Gap (6-13) BUN (6-20) mg/dL Creatinine (0.6-1.3) mg/dL Estimated GFR (MDRD) (>89) Glucose (74-104) mg/dL Uric Acid (2.3-6.6) mg/dL Calcium (8.5-10.3) mg/dL Magnesium (1.7-2.3) mg/dL Total Bilirubin (0.2-1.0) mg/dL AST (10-42) IU/L ALT (10-60) IU/L Alkaline Phosphatase (42-121) IU/L Total Protein (6.4-8.9) g/dL Albumin (3.2-5.5) g/dL Globulin (2.1-4.2) g/dL Albumin/Globulin Ratio (1.0-2.2) TSH 2.94 (0.34-5.60) uIU/mL Blood Type Antibody Screen Assessment/Plan - Problem List (1) Severe preeclampsia Impression: now with hyponatremia. will change iv fluid to NaCl at 100 cc per hour. maybe her nausea and headache are from her sodium and chloride being low. bp is stable. magnesium level is appropriate. continue induction. Qualifiers: Trimester: third trimester Qualified Code(s): O14.13 - Severe pre- eclampsia, third trimester
[2023-11-21] MEDS: SODIUM CHLORIDE 0.9% 1,000 ML IV SCH ×2 (08:06→17:32)
[2023-11-21] MEDS: METOCLOPRAMIDE 10 MG/2 ML VIAL IVP PRN ×2 (08:35→20:29)
--- NOTE | 2023-11-21 10:44 | PROVIDER PROGRESS NOTE ---
Subjective - Subjective Subjective: very nauseated. headache better. tired. feels pretty yucky. did not sleep much. Objective - Vital Signs/Intake & Output Intake & Output: Intake & Output 11/18/23 11/19/23 11/20/23 11/21/23 23:59 23:59 23:59 23:59 Intake Total 500 1172.5 Output Total 200 1425 Balance 300 -252.5 - Lab Results Fish Bones: 11/21/23 06:11 11/21/23 06:11 Other Labs: Lab Results x24hrs 11/21/23 11/21/23 11/20/23 Range/Units 06:11 06:11 18:31 WBC 10.1 (4.8-10.8) x10^3/uL RBC 3.94 L (4.20-5.40) 10^6/uL Hgb 9.5 L (12.0-16.0) g/dL Hct 30.8 L (37.0-47.0) % MCV 78.2 L (81.0-99.0) fL MCH 24.1 L (27.0-31.0) pg MCHC 30.8 L (32.0-36.0) g/dL RDW 15.9 H (12.0-15.0) % Plt Count 333 (130-450) 10^3/uL MPV 11.9 H (7.9-10.8) fL Neut # (Auto) 6.9 H (1.5-6.6) 10^3/uL Lymph # (Auto) 2.4 (1.5-3.5) 10^3/uL [place] # (Auto) 0.6 (0.0-1.0) 10^3/uL Eos # (Auto) 0.1 (0.0-0.7) 10^3/uL Baso # (Auto) 0.1 (0.0-0.1) 10^3/uL Absolute Nucleated RBC 0.00 x10^3/uL Nucleated RBC % 0.0 /100WBC Sodium 131 L 133 L (135-145) mmol/L Potassium 4.2 4.2 (3.5-4.5) mmol/L Chloride 100 L 103 (101-111) mmol/L Carbon Dioxide 25 22 (21-32) mmol/L Anion Gap 6.0 8.0 (6-13) BUN 13 14 (6-20) mg/dL Creatinine 0.7 0.7 (0.6-1.3) mg/dL Estimated GFR (MDRD) 101 101 (>89) Glucose 96 88 (74-104) mg/dL Uric Acid (2.3-6.6) mg/dL Calcium 7.7 L 8.9 (8.5-10.3) mg/dL Magnesium 4.9 H (1.7-2.3) mg/dL Total Bilirubin 0.4 0.4 (0.2-1.0) mg/dL AST 28 29 (10-42) IU/L ALT 50 47 (10-60) IU/L Alkaline Phosphatase 524 H 511 H (42-121) IU/L Total Protein 6.9 6.8 (6.4-8.9) g/dL Albumin 3.1 L 3.0 L (3.2-5.5) g/dL Globulin 3.8 3.8 (2.1-4.2) g/dL Albumin/Globulin Ratio 0.8 L 0.8 L (1.0-2.2) TSH (0.34-5.60) uIU/mL Blood Type Antibody Screen 11/20/23 11/20/23 11/20/23 Range/Units 18:31 18:31 18:31 WBC 10.1 (4.8-10.8) x10^3/uL RBC 4.03 L (4.20-5.40) 10^6/uL Hgb 9.7 L (12.0-16.0) g/dL Hct 31.4 L (37.0-47.0) % MCV 77.9 L (81.0-99.0) fL MCH 24.1 L (27.0-31.0) pg MCHC 30.9 L (32.0-36.0) g/dL RDW 15.9 H (12.0-15.0) % Plt Count 348 (130-450) 10^3/uL MPV 12.1 H (7.9-10.8) fL Neut # (Auto) 6.8 H (1.5-6.6) 10^3/uL Lymph # (Auto) 2.6 (1.5-3.5) 10^3/uL [place] # (Auto) 0.6 (0.0-1.0) 10^3/uL Eos # (Auto) 0.1 (0.0-0.7) 10^3/uL Baso # (Auto) 0.0 (0.0-0.1) 10^3/uL Absolute Nucleated RBC 0.00 x10^3/uL Nucleated RBC % 0.0 /100WBC Sodium (135-145) mmol/L Potassium (3.5-4.5) mmol/L Chloride (101-111) mmol/L Carbon Dioxide (21-32) mmol/L Anion Gap (6-13) BUN (6-20) mg/dL Creatinine (0.6-1.3) mg/dL Estimated GFR (MDRD) (>89) Glucose (74-104) mg/dL Uric Acid 5.3 (2.3-6.6) mg/dL Calcium (8.5-10.3) mg/dL Magnesium (1.7-2.3) mg/dL Total Bilirubin (0.2-1.0) mg/dL AST (10-42) IU/L ALT (10-60) IU/L Alkaline Phosphatase (42-121) IU/L Total Protein (6.4-8.9) g/dL Albumin (3.2-5.5) g/dL Globulin (2.1-4.2) g/dL Albumin/Globulin Ratio (1.0-2.2) TSH (0.34-5.60) uIU/mL Blood Type A POSITIVE Antibody Screen NEGATIVE 11/20/23 Range/Units 18:31 WBC (4.8-10.8) x10^3/uL RBC (4.20-5.40) 10^6/uL Hgb (12.0-16.0) g/dL Hct (37.0-47.0) % MCV (81.0-99.0) fL MCH (27.0-31.0) pg MCHC (32.0-36.0) g/dL RDW (12.0-15.0) % Plt Count (130-450) 10^3/uL MPV (7.9-10.8) fL Neut # (Auto) (1.5-6.6) 10^3/uL Lymph # (Auto) (1.5-3.5) 10^3/uL [place] # (Auto) (0.0-1.0) 10^3/uL Eos # (Auto) (0.0-0.7) 10^3/uL Baso # (Auto) (0.0-0.1) 10^3/uL Absolute Nucleated RBC x10^3/uL Nucleated RBC % /100WBC Sodium (135-145) mmol/L Potassium (3.5-4.5) mmol/L Chloride (101-111) mmol/L Carbon Dioxide (21-32) mmol/L Anion Gap (6-13) BUN (6-20) mg/dL Creatinine (0.6-1.3) mg/dL Estimated GFR (MDRD) (>89) Glucose (74-104) mg/dL Uric Acid (2.3-6.6) mg/dL Calcium (8.5-10.3) mg/dL Magnesium (1.7-2.3) mg/dL Total Bilirubin (0.2-1.0) mg/dL AST (10-42) IU/L ALT (10-60) IU/L Alkaline Phosphatase (42-121) IU/L Total Protein (6.4-8.9) g/dL Albumin (3.2-5.5) g/dL Globulin (2.1-4.2) g/dL Albumin/Globulin Ratio (1.0-2.2) TSH 2.94 (0.34-5.60) uIU/mL Blood Type Antibody Screen Assessment/Plan - Problem List (1) Severe preeclampsia Impression: bps steady. miso #3 in for induction this am around 9. continue process. baby category 1. Qualifiers: Trimester: third trimester Qualified Code(s): O14.13 - Severe pre- eclampsia, third trimester
[2023-11-21] MEDS: ACETAMINOPHEN 1,000 MG/100 ML 1,000 MG/100 ML BAG IV PRN ×2 (11:06→18:51)
[2023-11-21] MEDS ORDERED: LABETALOL 100 MG TABLET PO STA ×2 (12:00→17:41)
--- NOTE | 2023-11-21 18:39 | PROVIDER PROGRESS NOTE ---
Labor Progress Note - Uterine Monitoring Contraction Frequency (min/apart): irreg Contraction Intensity: positive: Mild Uterine Resting Tone: positive: Soft - Monitoring Monitor Mode: positive: External ultrasound Heart Rate Variability: positive: Moderate (6-25 bmp) Accelerations: positive: Present, 15x15 Decelerations: positive: None Strip Review: positive: Category I - Vaginal Exam Dilation (in cm): 3 Effacement (%): 85 Station: -2 Cervical Position: Midposition - Labor Progress Note Labor Progress Note/Additional Text: bad headache again. not so nauseated. very uncomfortable. tried to place balloon but too dilated. will start pitocin at 2 mu and increase by 2 mu per protocol. will give her evening dose of venlafaxine now and a dose of labetolol. IV acetominophen for headache. seemed to work very well in past.
[2023-11-21] MEDS ORDERED: OXYTOCIN/SODIUM CHLORIDE 500 ML IV SCH (19:00)
[2023-11-21 19:15] LABS: BASOPHILS % (AUTO) 0.3 %; EOSINOPHILS # (AUTO) 0.1 10^3/uL (0.0-0.7); LYMPHOCYTES # (AUTO) 1.5 10^3/uL (1.5-3.5); LYMPHOCYTES % (AUTO) 21.5 %; MEAN CORPUSCULAR HEMOGLOBIN 24.6 pg (27.0-31.0); MEAN CORPUSCULAR HGB CONC 29.3 g/dL (32.0-36.0); MEAN CORPUSCULAR VOLUME 83.9 fL (81.0-99.0); MEAN PLATELET VOLUME 11.1 fL (7.9-10.8); MONOCYTES # (AUTO) 0.4 10^3/uL (0.0-1.0); MONOCYTES % (AUTO) 5.7 %; NEUTROPHILS # (AUTO) 4.8 10^3/uL (1.5-6.6); NEUTROPHILS % (AUTO) 71.2 %; PLT - PLATELET COUNT 187 10^3/uL (130-450); RED BLOOD COUNT 2.48 10^6/uL (4.20-5.40); RED CELL DISTRIBUTION WIDTH 16.2 % (12.0-15.0); WHITE BLOOD COUNT 6.8 x10^3/uL (4.8-10.8)
[2023-11-21] MEDS ORDERED: LIDOCAINE-PF 2% 10 ML AMP SUBQ ONE (20:06)
[2023-11-21] MEDS ORDERED: LIDOCAINE 2%-EPI 1:100000 20 ML MDV ONE (20:06)
[2023-11-21] MEDS ORDERED: ROPIVACAINE 0.2% 200 MG/100 ML BAG EP ONE (20:07)
[2023-11-21 20:31] LABS: HCT - HEMATOCRIT 20.8 % (37.0-47.0); HGB - HEMOGLOBIN 6.1 g/dL (12.0-16.0)
[2023-11-21 20:39] LABS: ALBUMIN 2.9 g/dL (3.2-5.5); ALBUMIN/GLOBULIN RATIO 0.8 (1.0-2.2); BASOPHILS % (AUTO) 0.6 %; BILIRUBIN,TOTAL 0.4 mg/dL (0.2-1.0); CALCIUM 7.1 mg/dL (8.5-10.3); CREATININE 0.7 mg/dL (0.6-1.3); EOSINOPHILS % (AUTO) 0.9 %; HCT - HEMATOCRIT 31.5 % (37.0-47.0); HGB - HEMOGLOBIN 9.6 g/dL (12.0-16.0); LYMPHOCYTES % (AUTO) 18.8 %; MEAN CORPUSCULAR HEMOGLOBIN 23.9 pg (27.0-31.0); MEAN CORPUSCULAR HGB CONC 30.5 g/dL (32.0-36.0); MEAN CORPUSCULAR VOLUME 78.4 fL (81.0-99.0); MEAN PLATELET VOLUME 11.7 fL (7.9-10.8); MONOCYTES % (AUTO) 5.6 %; NEUTROPHILS % (AUTO) 73.7 %; PLT - PLATELET COUNT 311 10^3/uL (130-450); RED BLOOD COUNT 4.02 10^6/uL (4.20-5.40); RED CELL DISTRIBUTION WIDTH 15.9 % (12.0-15.0); TOTAL PROTEIN 6.6 g/dL (6.4-8.9); WHITE BLOOD COUNT 10.1 x10^3/uL (4.8-10.8)
[2023-11-21 20:40] LABS: ABNORMAL LYMPHS % (MANUAL) 0 %; BAND NEUTROPHILS % (MANUAL) 0 %
[2023-11-21 20:45] LABS: MAGNESIUM 5.6 mg/dL (1.7-2.3)
[2023-11-21 20:56] LABS: EOSINOPHILS # (MANUAL) 0.2 10^3/uL (0-0.7); LYMPHOCYTES # (MANUAL) 1.6 10^3/uL (1.5-3.5); LYMPHOCYTES % (MANUAL) 16 %; MONOCYTES # (MANUAL) 0.4 10^3/uL (0.0-1.0); NEUTROPHILS # (MANUAL) 7.9 10^3/uL (1.5-6.6)
[2023-11-21 20:58] LABS: DIFFERENTIAL COMMENT MANUAL DIFFERENTIAL; PLATELET ESTIMATE, MANUAL NORMAL (130-450,000) (NORMAL); PLATELET MORPHOLOGY NORMAL APPEARANCE (NORMAL)
[2023-11-21] MEDS ORDERED: ROPIVACAINE 0.2% 200 MG/100 ML BAG EP PRN (22:08)
[2023-11-21] MEDS ORDERED: NALBUPHINE 10 MG/ML AMP IVP PRN (22:08)
[2023-11-21] MEDS ORDERED: ONDANSETRON 4 MG/2 ML VIAL IVP PRN (22:08)
[2023-11-21] MEDS ORDERED: diphenhydrAMINE INJ 50 MG/ML VIAL IVP PRN (22:08)
--- NOTE | 2023-11-21 22:13 | ANESTHESIA ---
Pre-Anesthesia VS, & Labs - Diagnosis desires epidural/ pre-eclampsia - Procedure labor epidural Vital Signs: Temp Pulse Resp BP Pulse Ox O2 Flow Rate 36.6 C 77 20 155/106 H 11/20/23 19:00 11/20/23 19:00 11/20/23 19:00 11/20/23 19:00 Height: 5 ft 7 in Weight (kg): 105.233 kg Body Mass Index: 36.3 BMI Classification: Obese - NPO Other (dinner, but vomited) - Is Patient ?: Yes Estimated Due Date:: 11/21/23 - Lab Results Current Lab Results: Laboratory Tests 11/21/23 20:14: WBC 10.1, RBC 4.02 L, Hgb 9.6 L, Hct 31.5 L, MCV 78.4 L, MCH 23.9 L, MCHC 30.5 L, RDW 15.9 H, Plt Count 311, MPV 11.7 H, Neut # (Auto) Not Reportable, Lymph # (Auto) Not Reportable, [place] # (Auto) Not Reportable, Eos # (Auto) Not Reportable, Baso # (Auto) Not Reportable, Absolute Nucleated RBC Not Reportable, Total Counted 100, Band Neuts % (Manual) 0, Abnorm Lymph % (Manual) 0, Nucleated RBC % Not Reportable, Neutrophils # (Manual) 7.9 H, Lymphocytes # (Manual) 1.6, Monocytes # (Manual) 0.4, Eosinophils # (Manual) 0.2, Basophils # (Manual) 0.0, Differential Comment MANUAL DIFFERENTIAL, Platelet Estimate NORMAL (130-450,000), Platelet Morphology NORMAL APPEARANCE, RBC Morph Micro Appear 1+ POLYCHROMASIA 11/21/23 20:14: Sodium 132 L, Potassium 4.0, Chloride 101, Carbon Dioxide 23, Anion Gap 8.0, BUN 11, Creatinine 0.7, Estimated GFR (MDRD) 101, Glucose 89, Calcium 7.1 L, Magnesium 5.6 H*, Total Bilirubin 0.4, AST 34, ALT 53, Alkaline Phosphatase 513 H, Total Protein 6.6, Albumin 2.9 L, Globulin 3.7, Albumin/Globulin Ratio 0.8 L 11/21/23 19:06: Sodium Cancelled, Potassium Cancelled, Chloride Cancelled, Carbon Dioxide Cancelled, Anion Gap Cancelled, BUN Cancelled, Creatinine Ca ncelled, Estimated GFR (MDRD) Cancelled, Glucose Cancelled, Calcium Cancelled, Total Bilirubin Cancelled, AST Cancelled, ALT Cancelled, Alkaline Phosphatase Cancelled, Total Protein Cancelled, Albumin Cancelled, Globulin Cancelled, Albumin/Globulin Ratio Cancelled 11/21/23 19:06: WBC 6.8, RBC 2.48 L, Hgb 6.1 L*, Hct 20.8 L, MCV 83.9, MCH 24.6 L, MCHC 29.3 L, RDW 16.2 H, Plt Count 187, MPV 11.1 H, Neut # (Auto) 4.8, Lymph # (Auto) 1.5, [place] # (Auto) 0.4, Eos # (Auto) 0.1, Baso # (Auto) 0.0, Absolute Nucleated RBC 0.00, Nucleated RBC % 0.0 11/21/23 06:11: Sodium 131 L, Potassium 4.2, Chloride 100 L, Carbon Dioxide 25, Anion Gap 6.0, BUN 13, Creatinine 0.7, Estimated GFR (MDRD) 101, Glucose 96, Calcium 7.7 L, Magnesium 4.9 H, Total Bilirubin 0.4, AST 28, ALT 50, Alkaline Phosphatase 524 H, Total Protein 6.9, Albumin 3.1 L, Globulin 3.8, Albumin/Globulin Ratio 0.8 L 11/21/23 06:11: WBC 10.1, RBC 3.94 L, Hgb 9.5 L, Hct 30.8 L, MCV 78.2 L, MCH 24.1 L, MCHC 30.8 L, RDW 15.9 H, Plt Count 333, MPV 11.9 H, Neut # (Auto) 6.9 H, Lymph # (Auto) 2.4, [place] # (Auto) 0.6, Eos # (Auto) 0.1, Baso # (Auto) 0.1, Absolute Nucleated RBC 0.00, Nucleated RBC % 0.0 11/20/23 18:31: Sodium 133 L, Potassium 4.2, Chloride 103, Carbon Dioxide 22, Anion Gap 8.0, BUN 14, Creatinine 0.7, Estimated GFR (MDRD) 101, Glucose 88, Calcium 8.9, Total Bilirubin 0.4, AST 29, ALT 47, Alkaline Phosphatase 511 H, Total Protein 6.8, Albumin 3.0 L, Globulin 3.8, Albumin/Globulin Ratio 0.8 L 11/20/23 18:31: WBC 10.1, RBC 4.03 L, Hgb 9.7 L, Hct 31.4 L, MCV 77.9 L, MCH 24.1 L, MCHC 30.9 L, RDW 15.9 H, Plt Count 348, MPV 12.1 H, Neut # (Auto) 6.8 H, Lymph # (Auto) 2.6, [place] # (Auto) 0.6, Eos # (Auto) 0.1, Baso # (Auto) 0.0, Absolute Nucleated RBC 0.00, Nucleated RBC % 0.0 11/20/23 18:31: Blood Type A POSITIVE, Antibody Screen NEGATIVE, Crossmatch IS Only See Detail 11/20/23 18:31: Uric Acid 5.3 11/20/23 18:31: TSH 2.94 Fish Bones: 11/21/23 20:14 11/21/23 20:14 Home Medications and Allergies Active Medications Acetaminophen (Acetaminophen 500 Mg Tablet) 1,000 mg PO Q8H PRN PRN Reason: Mild Pain or Fever>38C(100.4F) Last Admin: 11/21/23 05:25 Dose: 1,000 mg Carboprost Tromethamine (Carboprost Tromethamine 250 Mcg/Ml Amp) 250 mcg IM .ONCE PRN PRN Reason: Hemorrhage Diphenhydramine HCl (Diphenhydramine Inj 50 Mg/Ml Vial) 12.5 - 25 mg IVP Q6HR PRN PRN Reason: ITCHING Fentanyl (Fentanyl 100 Mcg/2 Ml Vial) 50 mcg IVP Q1H PRN PRN Reason: Severe Pain (score 7-10) Last Admin: 11/21/23 06:38 Dose: 50 mcg Hydralazine HCl (Hydralazine Inj 20 Mg/Ml Vial) 5 - 10 mg IVP Q20M PRN; Protocol PRN Reason: SBP> or= 160 OR DBP> or= 110 Hydralazine HCl (Hydralazine Inj 20 Mg/Ml Vial) 10 mg IVP .ONCE PRN; Protocol PRN Reason: SBP> or= 160 OR DBP> or= 110 Lactated Ringer's (Lr) 500 mls @ 999 mls/hr IV PRN PRN PRN Reason: distress hypotension Oxytocin/Sodium Chloride (Pitocin/Sodium Chloride) 500 mls @ 999 mls/hr IV PRN PRN; Protocol PRN Reason: POST- HEMORR PREVENTION Tranexamic Acid (Tranexamic 1,000 Mg/100ml-Nacl) 1,000 mg in 100 mls @ 600 mls/hr IV Q30M PRN PRN Reason: EBL >1200mL and within 3hr Magnesium Sulfate (Magnesium Sulf 20 G/500 Ml Bag) 20 gm in 500 mls @ 50 mls/hr IV .Q10H RAMANA Last Admin: 11/21/23 13:09 Dose: 50 mls/hr Sodium Chloride (Normal Saline 0.9%) 1,000 mls @ 100 mls/hr IV .Q10H RAMANA Last Admin: 11/21/23 17:32 Dose: 100 mls/hr Acetaminophen (Acetaminophen) 1,000 mg in 100 mls @ 400 mls/hr IV Q6HR PRN PRN Reason: Moderate Pain (Level 4-6) Last Admin: 11/21/23 18:51 Dose: 400 mls/hr Oxytocin/Sodium Chloride (Pitocin/Sodium Chloride) 500 mls @ 2 mls/hr IV TITR RAMANA; Protocol Ropivacaine (Naropin 0.2%) 200 mg in 100 mls @ 0 mls/hr EP PRN PRN; Protocol PRN Reason: PAIN Labetalol HCl (Labetalol 20 Mg/4 Ml Syringe) 20 - 80 mg IVP Q10M PRN; Protocol PRN Reason: SBP> or= 160 OR DBP> or= 110 Labetalol HCl (Labetalol 20 Mg/4 Ml Syringe) 20 mg IVP .ONCE PRN; Protocol PRN Reason: SBP> or= 160 OR DBP> or= 110 Lidocaine HCl (Lidocaine 1% 20 Ml Mdv) 20 ml ID .ONCE PRN PRN Reason: PERINEAL REPAIR Stop: 11/23/23 18:26 Metoclopramide HCl (Metoclopramide 10 Mg Tablet) 5 mg PO Q6HR PRN PRN Reason: Nausea / Vomiting Metoclopramide HCl (Metoclopramide 10 Mg/2 Ml Vial) 5 mg IVP Q6HR PRN PRN Reason: Nausea / Vomiting Last Admin: 11/21/23 20:29 Dose: 5 mg Misoprostol (Misoprostol 200 Mcg Tablet) 600 mcg BC .ONCE PRN PRN Reason: Hemorrhage Misoprostol (Misoprostol 200 Mcg Tablet) 800 mcg ND .ONCE PRN PRN Reason: Hemorrhage Misoprostol (Misoprostol 100 Mcg Tablet) 25 mcg VG Q4H RAMANA Last Admin: 11/21/23 13:09 Dose: 25 mcg Nalbuphine HCl (Nalbuphine 10 Mg/Ml Amp) 2.5 - 5 mg IVP Q4H PRN PRN Reason: Severe Itching Nifedipine (Nifedipine 10 Mg Capsule) 10 - 20 mg PO Q20M PRN; Protocol PRN Reason: SBP> or= 160 OR DBP> or= 110 Ondansetron HCl (Ondansetron Odt 4 Mg Tablet) 4 mg PO Q4HR PRN PRN Reason: Nausea / Vomiting Last Admin: 11/21/23 05:25 Dose: 4 mg Ondansetron HCl (Ondansetron 4 Mg/2 Ml Vial) 4 mg IVP Q6HR PRN PRN Reason: Nausea / Vomiting Oxytocin (Oxytocin 10 Unit/Ml Vial) 10 unit IM .ONCE PRN PRN Reason: Step One if no IV access. Sodium Chloride (Sodium Chloride Flush 0.9% 10 Ml Syringe) 10 ml IVP PRN PRN PRN Reason: NEEDED PER PROVIDER ORDERS Last Admin: 11/21/23 06:41 Dose: 10 ml Sodium Chloride (Sodium Chloride Flush 0.9% 10 Ml Syringe) 10 ml IVP Q8H [facility] Terbutaline Sulfate (Terbutaline 1 Mg/Ml Vial) 0.25 mg SUBQ .ONCE PRN PRN Reason: Tachystole Venlafaxine HCl (Venlafaxine 37.5 Mg Tablet) 75 mg PO DAILY@1700 RAMANA Gabapentin [Neurontin] 100 mg PO DAILY 04/18/21 168/Iron/Folic/Omega3 [One-A-Day -1 Softgel] 04/18/21 Allergies/Adverse Reactions: Allergies Allergy/AdvReac Type Severity Reaction Status Date / Time No Known Drug Allergies Allergy Verified 02/25/23 18:11 Anes History & Medical History - Medical History Cardiovascular: reports: None Pulmonary: reports: None, Asthma (prn albuterol) Gastrointestinal: reports: None, Cholelithiasis Urinary: reports: None Musculoskeletal: reports: None Endocrine/Autoimmune: reports: None Blood Disorders: reports: None Skin: reports: None Smoking Status: Never smoker - Surgical History Gynecologic: reports: Endometrial ablation - Obstetrical History : 2 Parity: 0 Events: reports: Pre-eclampsia, Other (preeclampsia on labetolol for a few weeks. Cholestasis.) Complications: reports: induced HTN (137/109) Exam General: Alert, Cooperative Mouth Openin Fingerbreadth Neck Mobility: Normal Mallampati classification: II Thyromental Distance: 4-6 cm Plan Anesthesia Type: Epidural Consent for Procedure(s) Verified and Reviewed: Yes Code Status: Attempt Resuscitation ASA classification: 3-Severe systemic disease Is this case an emergency?: No
--- NOTE | 2023-11-21 22:17 | ANESTHESIA PROCEDURE NOTE ---
Anesthesia Epidural Template - Plan Plan: positive: Continue current management (difficult placement, spinal catheter atL4-5; removed and replaced at L3-4, tres 7 cm, cath 12 cm skin, advised may have back pain; discussed s/s of spinal postural headache and to please contract anesthesia if it occurs; discussed with nurse as well.)
[2023-11-22] MEDS: MAGNESIUM SULFATE IN WATER 20 GM/500 ML IV.SOLN IV SCH ×2 (00:11→20:56)
[2023-11-22] MEDS: SODIUM CHLORIDE 0.9% 1,000 ML IV SCH ×2 (01:01→22:30)
--- NOTE | 2023-11-22 02:49 | PROVIDER PROGRESS NOTE ---
Labor Progress Note - Uterine Monitoring Uterine Monitoring Mode: positive: IUPC : q 6 min Contraction Intensity: positive: Mild to moderate, Moderate Uterine Resting Tone: positive: Soft - Monitoring Monitor Mode: positive: External ultrasound Heart Rate Baseline: 135 Heart Rate Variability: positive: Moderate (6-25 bmp) (was minimal often in last 2 hours.) Accelerations: positive: Absent Decelerations: positive: None (recurrent late decels have now resolved. 2 fluid bolus of 500 cc given. position changes.) Strip Review: positive: Category I (this minute. was category 2 to 3.) - Vaginal Exam Dilation (in cm): 3.5 Effacement (%): 80 Station: -2 Cervical Position: Midposition - Labor Progress Note Labor Progress Note/Additional Text: unable to give pitocin as late decels that were repetitive with times of minimal variability. AROM done, fluid with slightly bloody but no mec. IUPC placed, first placement with blood so removed and replaced in a different area of uterus. after that FHT with moderate variablity. no acels or decels. will restart pitocin and watch closely.
[2023-11-22] MEDS: ACETAMINOPHEN 1,000 MG/100 ML 1,000 MG/100 ML BAG IV PRN (05:50)
[2023-11-22] MEDS ORDERED: ceFAZolin (2G) 2 GM in SODIUM CHLORIDE 0.9% MINIBAG 100 ML IV ONE (06:14)
[2023-11-22] MEDS ORDERED: AZITHROMYCIN INJ 500 MG in SODIUM CHLORIDE 0.9% 250 ML IV ONE (06:14)
[2023-11-22] MEDS ORDERED: CITRIC ACID/SODIUM CITRATE 15 ML UDC PO ONE (06:14)
--- NOTE | 2023-11-22 06:38 | PROVIDER PROGRESS NOTE ---
Labor Progress Note - Uterine Monitoring Uterine Monitoring Mode: positive: IUPC : q6 Contraction Intensity: positive: Moderate Uterine Resting Tone: positive: Soft - Monitoring Monitor Mode: positive: External ultrasound Heart Rate Variability: positive: Moderate (6-25 bmp) Accelerations: positive: Present, 15x15 Decelerations: positive: None Strip Review: positive: Category I - Vaginal Exam Dilation (in cm): per RN 3.5 Effacement (%): 80 Station: -2 - Labor Progress Note Labor Progress Note/Additional Text: Patient is making no progress in her labor. AROM done. contractions q6. has had periods of category 2 and 3 tracing that has made going up on the pitocin difficult. baby looks great right now. Patient has been here now over 36 hours trying to delivery and is tired, hungry and really done trying to have a vaginal . she is ready to proceed with c section and I very much agree with this plan. C section risks, benefits and alternatives discussed and consent is signed. team called for planned cut time of 7 am when most staff will be available.
[2023-11-22] MEDS ORDERED: LACTATED RINGERS 1,000 ML IV SCH ×2 (07:00→09:00)
[2023-11-22] MEDS ORDERED: fentaNYL 100 MCG/2 ML VIAL ONE (07:23)
[2023-11-22] MEDS ORDERED: ROPIVACAINE 0.5% PF 20 ML VIAL ONE ×2 (07:53→08:07)
[2023-11-22] MEDS ORDERED: SODIUM CHLORIDE 0.9% 10 ML VIAL IVP ONE (07:53)
[2023-11-22] MEDS ORDERED: DEXAMETHASONE 4 MG/ML VIAL ONE (08:06)
[2023-11-22] MEDS ORDERED: CALCIUM CARBONATE CHEW 500 MG TABLET PO PRN (08:22)
[2023-11-22] MEDS ORDERED: FERRIC GLUCONATE 125 MG in SODIUM CHLORIDE 0.9% 100ML 100 ML IV PRN (08:22)
[2023-11-22] MEDS ORDERED: OXYTOCIN/SODIUM CHLORIDE 500 ML IV PRN (08:22)
[2023-11-22] MEDS ORDERED: diphenhydrAMINE 25 MG CAPSULE PO PRN (08:22)
[2023-11-22] MEDS ORDERED: diphenhydrAMINE INJ 50 MG/ML VIAL IVP PRN (08:22)
[2023-11-22] MEDS ORDERED: hydrALAZINE INJ 20 MG/ML VIAL IVP PRN ×2 (08:22)
[2023-11-22] MEDS ORDERED: NIFEdipine 10 MG CAPSULE PO PRN ×2 (08:22→13:22)
[2023-11-22] MEDS ORDERED: LABETALOL 20 MG/4 ML SYRINGE IVP PRN ×3 (08:22)
[2023-11-22] MEDS ORDERED: SIMETHICONE CHEW 80 MG TABLET PO PRN (08:22)
[2023-11-22] MEDS ORDERED: NALOXONE 0.4 MG/ML VIAL IVP PRN ×2 (08:22→08:40)
[2023-11-22] MEDS ORDERED: oxyCODONE 5 MG TABLET PO PRN (08:22)
[2023-11-22] MEDS ORDERED: LACTATED RINGERS 1,000 ML IV ONE (08:28)
--- NOTE | 2023-11-22 08:29 | OPERATIVE REPORT ---
Operative Report - General Admit Date: 11/20/23 Procedure Date: 11/22/23 Planned Procedure: Primary Low Transverse c section. Pre-Op Diagnosis: failure to progress in labor Procedure Performed: primary low transverse c section and ovarian biopsy Post Op Diagnosis: liveborn female. endometriosis - Procedure Note Primary Surgeon: Nighat Valdes MD Secondary Surgeon: NATALIE Mahoney Anesthesia Provider: Key Parr CRNA Anesthesia Technique: Epidural, Regional block Pathology: biopsy of presumed endometriosis from both ovaries. IV Fluids (mL): 800 Estimated Blood Loss (mL): 600 Urine Output (mL): 75 Indications: liveborn female named Amy, Apgars are 8/9. weight is pending endometriosis spots noted on both ovaries. biopsies done to confirm. cauterized spots on right. Complications: none
[2023-11-22] MEDS ORDERED: METOCLOPRAMIDE 10 MG/2 ML VIAL IVP PRN (08:40)
[2023-11-22] MEDS ORDERED: fentaNYL 100 MCG/2 ML VIAL IVP PRN (08:40)
[2023-11-22] MEDS ORDERED: MORPHINE 2 MG/ML CARPUJECT IVP PRN (08:40)
[2023-11-22] MEDS ORDERED: HYDROmorphone 0.5 MG/0.5 ML SYRINGE IVP PRN (08:40)
[2023-11-22] MEDS ORDERED: ONDANSETRON 4 MG/2 ML VIAL IVP PRN (08:40)
[2023-11-22] MEDS ORDERED: ATROPINE ABBOJECT 1 MG/10 ML SYRINGE IVP PRN (08:40)
[2023-11-22] MEDS ORDERED: ePHEDrine 50 MG/ML VIAL IVP PRN (08:40)
[2023-11-22] MEDS ORDERED: KETOROLAC 30 MG/ML VIAL ONE (08:51)
[2023-11-22] MEDS ORDERED: LABETALOL 100 MG TABLET PO STA (11:02)
--- NOTE | 2023-11-22 11:17 | ANESTHESIA POST OP EVALUATION ---
Anesthesia Post Eval - Post Anesthesia Eval Vitals: Last Vital Signs Temp 36.3 C L 11/22/23 09:28 Pulse 74 11/22/23 11:06 Resp 16 11/22/23 11:06 BP 147/100 H 11/22/23 11:06 Pulse Ox 99 11/22/23 09:28 O2 Flow Rate CV Function Including HR & BP: Stable Pain Control: Satisfactory Nausea & Vomiting: Negative Mental Status: Baseline Respiratory Status: Airway Patent Hydration Status: Satisfactory Anesthesia Complications: None
[2023-11-22] MEDS ORDERED: PHENYLEPHRINE HCL 0.5 MG/5 ML AMPULE ONE (12:53)
[2023-11-22] MEDS ORDERED: ePHEDrine 50 MG/ML VIAL IVP ONE (12:53)
[2023-11-22 13:34] LABS: BASOPHILS % (AUTO) 0.2 %; HCT - HEMATOCRIT 26.2 % (37.0-47.0); HGB - HEMOGLOBIN 8.1 g/dL (12.0-16.0); LYMPHOCYTES # (AUTO) 1.2 10^3/uL (1.5-3.5); LYMPHOCYTES % (AUTO) 7.8 %; MEAN CORPUSCULAR HEMOGLOBIN 24.3 pg (27.0-31.0); MEAN CORPUSCULAR HGB CONC 30.9 g/dL (32.0-36.0); MEAN CORPUSCULAR VOLUME 78.7 fL (81.0-99.0); MEAN PLATELET VOLUME 11.5 fL (7.9-10.8); MONOCYTES # (AUTO) 0.3 10^3/uL (0.0-1.0); MONOCYTES % (AUTO) 2.2 %; NEUTROPHILS # (AUTO) 13.6 10^3/uL (1.5-6.6); NEUTROPHILS % (AUTO) 89.3 %; PLT - PLATELET COUNT 322 10^3/uL (130-450); RED BLOOD COUNT 3.33 10^6/uL (4.20-5.40); WHITE BLOOD COUNT 15.3 x10^3/uL (4.8-10.8)
[2023-11-22 13:59] LABS: ALBUMIN 2.6 g/dL (3.2-5.5); ALBUMIN/GLOBULIN RATIO 0.9 (1.0-2.2); BILIRUBIN,TOTAL 0.4 mg/dL (0.2-1.0); CALCIUM 6.8 mg/dL (8.5-10.3); CREATININE 0.8 mg/dL (0.6-1.3); POTASSIUM 4.6 mmol/L (3.5-4.5); TOTAL PROTEIN 5.6 g/dL (6.4-8.9)
[2023-11-22] MEDS: GABAPENTIN 300 MG CAPSULE PO PRN (14:26)
[2023-11-22] MEDS: oxyCODONE 5 MG TABLET PO PRN ×2 (14:26→18:47)
[2023-11-22] MEDS: KETOROLAC 30 MG/ML VIAL IVP SCH ×2 (15:44→22:29)
[2023-11-22] MEDS: ACETAMINOPHEN 500 MG TABLET PO SCH (15:45)
[2023-11-22] MEDS: SODIUM CHLORIDE FLUSH 0.9% 10 ML SYRINGE IVP SCH (15:51)
[2023-11-22] MEDS: NIFEdipine ER 30 MG TABLET PO SCH (20:31)
[2023-11-22] MEDS: VENLAFAXINE 37.5 MG TABLET PO SCH (21:00)
[2023-11-22] MEDS ORDERED: ENOXAPARIN 40 MG/0.4 ML SYRINGE SUBQ SCH (22:00)
[2023-11-22] MEDS ORDERED: NIFEdipine ER 30 MG TABLET PO ONE (23:21)
[2023-11-23] MEDS: METOCLOPRAMIDE 10 MG/2 ML VIAL IVP PRN (00:12)
[2023-11-23] MEDS: ACETAMINOPHEN 1,000 MG/100 ML 1,000 MG/100 ML BAG IV PRN (00:55)
[2023-11-23] MEDS: ENOXAPARIN 40 MG/0.4 ML SYRINGE SUBQ SCH ×2 (01:01→21:04)
[2023-11-23] MEDS: DOCUSATE SODIUM 100 MG CAPSULE PO SCH ×3 (02:34→21:04)
[2023-11-23] MEDS: KETOROLAC 30 MG/ML VIAL IVP SCH (05:40)
[2023-11-23] MEDS ORDERED: KETOROLAC 30 MG/ML VIAL IVP SCH (05:40)
[2023-11-23 06:11] LABS: HCT - HEMATOCRIT 21.3 % (37.0-47.0); MEAN CORPUSCULAR HEMOGLOBIN 24.8 pg (27.0-31.0); MEAN CORPUSCULAR VOLUME 80.1 fL (81.0-99.0); MEAN PLATELET VOLUME 10.9 fL (7.9-10.8); RED BLOOD COUNT 2.66 10^6/uL (4.20-5.40); RED CELL DISTRIBUTION WIDTH 16.2 % (12.0-15.0); WHITE BLOOD COUNT 17.7 x10^3/uL (4.8-10.8)
[2023-11-23 06:42] LABS: HGB - HEMOGLOBIN 6.6 g/dL (12.0-16.0)
[2023-11-23] MEDS: SODIUM CHLORIDE FLUSH 0.9% 10 ML SYRINGE IVP SCH (07:59)
[2023-11-23] MEDS: oxyCODONE 5 MG TABLET PO PRN ×4 (08:18→20:23)
[2023-11-23] MEDS: NIFEdipine ER 30 MG TABLET PO SCH ×2 (08:30→21:17)
[2023-11-23] MEDS ORDERED: FUROSEMIDE 40 MG/4 ML VIAL IVP SCH (09:00)
[2023-11-23] MEDS: IBUPROFEN 600 MG TABLET PO SCH ×3 (09:04→21:02)
--- NOTE | 2023-11-23 11:39 | PROVIDER PROGRESS NOTE ---
Subjective - Prog Note Date Prog Note Date: 11/23/23 Prog Note Time: 11:37 - Subjective Pt reports feeling: Improved Subjective: feeling pretty good this am. incisional pain but no headache. not nauseated. no dizziness when getting up. very puffy and not better yet. feels the binder on her bellly is helpful. passed a large clot. IV access out and after 8 tries, no one can get started again. feels done. did not get iv iron. Objective - Vital Signs/Intake & Output Reviewed Vital Signs: Yes Vital Signs: Vital Signs x48h Temp Pulse Resp BP Pulse Ox 11/23/23 08:04 98.8 F 70 20 142/91 H 99 11/23/23 04:39 77 16 116/73 Intake & Output: Intake & Output 11/20/23 11/21/23 11/22/23 11/23/23 23:59 23:59 23:59 23:59 Intake Total 500 3318.200 2839.566 600 Output Total 200 2475 1400 3400 Balance 300 948.523 1578.566 -2800 - Objective General Appearance: positive: No acute distress Abdomen: positive: No distention, Other (normal pain at incision) - Lab Results Fish Bones: 11/23/23 06:06 11/22/23 13:30 Other Labs: Lab Results x24hrs 11/23/23 11/22/23 11/22/23 Range/Units 06:06 13:30 13:30 WBC 17.7 H 15.3 H (4.8-10.8) x10^3/uL RBC 2.66 L 3.33 L (4.20-5.40) 10^6/uL Hgb 6.6 L* 8.1 L (12.0-16.0) g/dL Hct 21.3 L 26.2 L (37.0-47.0) % MCV 80.1 L 78.7 L (81.0-99.0) fL MCH 24.8 L 24.3 L (27.0-31.0) pg MCHC 31.0 L 30.9 L (32.0-36.0) g/dL RDW 16.2 H 16.0 H (12.0-15.0) % Plt Count 305 322 (130-450) 10^3/uL MPV 10.9 H 11.5 H (7.9-10.8) fL Neut # (Auto) 13.6 H (1.5-6.6) 10^3/uL Lymph # (Auto) 1.2 L (1.5-3.5) 10^3/uL [place] # (Auto) 0.3 (0.0-1.0) 10^3/uL Eos # (Auto) 0.0 (0.0-0.7) 10^3/uL Baso # (Auto) 0.0 (0.0-0.1) 10^3/uL Absolute Nucleated RBC 0.00 x10^3/uL Nucleated RBC % 0.0 /100WBC Sodium (135-145) mmol/L Potassium (3.5-4.5) mmol/L Chloride (101-111) mmol/L Carbon Dioxide (21-32) mmol/L Anion Gap (6-13) BUN (6-20) mg/dL Creatinine (0.6-1.3) mg/dL Estimated GFR (MDRD) (>89) Glucose (74-104) mg/dL Calcium (8.5-10.3) mg/dL Magnesium 5.2 H* (1.7-2.3) mg/dL Total Bilirubin (0.2-1.0) mg/dL AST (10-42) IU/L ALT (10-60) IU/L Alkaline Phosphatase (42-121) IU/L Total Protein (6.4-8.9) g/dL Albumin (3.2-5.5) g/dL Globulin (2.1-4.2) g/dL Albumin/Globulin Ratio (1.0-2.2) 11/22/23 Range/Units 13:30 WBC (4.8-10.8) x10^3/uL RBC (4.20-5.40) 10^6/uL Hgb (12.0-16.0) g/dL Hct (37.0-47.0) % MCV (81.0-99.0) fL MCH (27.0-31.0) pg MCHC (32.0-36.0) g/dL RDW (12.0-15.0) % Plt Count (130-450) 10^3/uL MPV (7.9-10.8) fL Neut # (Auto) (1.5-6.6) 10^3/uL Lymph # (Auto) (1.5-3.5) 10^3/uL [place] # (Auto) (0.0-1.0) 10^3/uL Eos # (Auto) (0.0-0.7) 10^3/uL Baso # (Auto) (0.0-0.1) 10^3/uL Absolute Nucleated RBC x10^3/uL Nucleated RBC % /100WBC Sodium 131 L (135-145) mmol/L Potassium 4.6 H (3.5-4.5) mmol/L Chloride 101 (101-111) mmol/L Carbon Dioxide 21 (21-32) mmol/L Anion Gap 9.0 (6-13) BUN 12 (6-20) mg/dL Creatinine 0.8 (0.6-1.3) mg/dL Estimated GFR (MDRD) 87 L (>89) Glucose 140 H (74-104) mg/dL Calcium 6.8 L (8.5-10.3) mg/dL Magnesium (1.7-2.3) mg/dL Total Bilirubin 0.4 (0.2-1.0) mg/dL AST 34 (10-42) IU/L ALT 53 (10-60) IU/L Alkaline Phosphatase 419 H (42-121) IU/L Total Protein 5.6 L (6.4-8.9) g/dL Albumin 2.6 L (3.2-5.5) g/dL Globulin 3.0 (2.1-4.2) g/dL Albumin/Globulin Ratio 0.9 L (1.0-2.2) Assessment/Plan - Problem List (1) Severe preeclampsia Impression: s/p c section. magnesium off this am. bp pretty well controlled on nifedipine now. gave lasix 40 mg iv this am and she diuresed 1500 cc. will change that to po. Qualifiers: Trimester: third trimester Qualified Code(s): O14.13 - Severe pre- eclampsia, third trimester (2) Postoperative anemia due to acute blood loss Impression: passed 260 cc clot this am. hb 6.6 this am. likely will increase as she diureses. She is not symptomatic. I do not think she is having active bleeding. She was slightly low pre-op. will give po iron as no iv access now.
[2023-11-23] MEDS: FERROUS GLUCONATE 324 MG TABLET PO SCH (13:06)
[2023-11-23] MEDS: PRENATAL VITAMIN TABLET PO SCH (13:10)
[2023-11-23] MEDS: ACETAMINOPHEN 500 MG TABLET PO SCH ×2 (13:49→21:54)
[2023-11-23] MEDS ORDERED: PRENATAL VITAMIN TABLET PO ONE (14:00)
[2023-11-23] MEDS: VENLAFAXINE 37.5 MG TABLET PO SCH (17:05)
[2023-11-23] MEDS: GABAPENTIN 300 MG CAPSULE PO PRN (21:53)
[2023-11-24] MEDS ORDERED: NIFEdipine ER 30 MG TABLET PO ONE (00:04)
[2023-11-24] MEDS: oxyCODONE 5 MG TABLET PO PRN ×2 (00:21→05:19)
[2023-11-24] MEDS: IBUPROFEN 600 MG TABLET PO SCH ×4 (03:07→23:55)
[2023-11-24] MEDS ORDERED: LABETALOL 100 MG TABLET PO ONE (05:31)
[2023-11-24] MEDS: PRENATAL VITAMIN TABLET PO SCH (08:03)
[2023-11-24] MEDS: FERROUS GLUCONATE 324 MG TABLET PO SCH (09:10)
[2023-11-24] MEDS: NIFEdipine ER 30 MG TABLET PO SCH (09:11)
[2023-11-24] MEDS: FUROSEMIDE 40 MG TABLET PO SCH (09:11)
--- NOTE | 2023-11-24 13:33 | PROVIDER PROGRESS NOTE ---
Subjective - Prog Note Date Prog Note Date: 11/24/23 Prog Note Time: 11:00 - Subjective Pt reports feeling: Improved Subjective: feeling pretty good. no sx of anemia. normal incision pain using 5 mg oxycodone. voiding alot. BPS up over night. seem to do better with labetolol than nifedipine. Objective - Vital Signs/Intake & Output Reviewed Vital Signs: Yes Vital Signs: Vital Signs x48h Temp Pulse Resp BP Pulse Ox 11/24/23 11:42 99.0 F 72 16 123/84 H 97 11/24/23 08:00 98.6 F 75 16 125/85 H 97 11/24/23 06:00 98.2 F 70 14 130/84 H Intake & Output: Intake & Output 11/21/23 11/22/23 11/23/23 11/24/23 23:59 23:59 23:59 23:59 Intake Total 3318.200 2845.366 1220 725 Output Total 2475 1400 4578 1533 Balance 556.277 5936.366 -3358 -808 - Objective General Appearance: positive: No acute distress Respiratory: positive: No respiratory distress Abdomen: positive: Non-tender, Other (bandage still on wound. dry. can remove.) Skin: positive: Color nml - Lab Results Fish Bones: 11/23/23 06:06 11/22/23 13:30 Other Labs: Lab Results x24hrs 11/20/23 Range/Units 18:31 Crossmatch IS Only See Detail Assessment/Plan - Problem List (1) Severe preeclampsia Impression: bps still quite elevated overnight. seems labetolol works better for her than procardia. will switch. also lasix 40 mg po daily. needs to stay another day for baby anyway. right now labetolol 200 mg bid and will stop the procardia. Qualifiers: Trimester: third trimester Qualified Code(s): O14.13 - Severe pre- eclampsia, third trimester (2) Postoperative anemia due to acute blood loss Impression: still no symptoms of anemia. continue po iron as iv out and unable to get another.
[2023-11-24] MEDS: ACETAMINOPHEN 500 MG TABLET PO SCH ×2 (14:05→22:03)
[2023-11-24] MEDS: VENLAFAXINE 37.5 MG TABLET PO SCH (16:58)
[2023-11-24] MEDS: LABETALOL 100 MG TABLET PO SCH (16:58)
[2023-11-24] MEDS: DOCUSATE SODIUM 100 MG CAPSULE PO SCH (20:35)
[2023-11-24] MEDS: ENOXAPARIN 40 MG/0.4 ML SYRINGE SUBQ SCH (20:35)
[2023-11-25] MEDS: IBUPROFEN 600 MG TABLET PO SCH ×2 (06:07→13:57)
[2023-11-25] MEDS: ACETAMINOPHEN 500 MG TABLET PO SCH ×2 (06:08→13:57)
--- NOTE | 2023-11-25 08:38 | Discharge Plan ---
Discharge Plan Problem Reviewed?: Yes Disposition: Home, Self Care Condition: Good Prescriptions: oxyCODONE [Roxicodone] 5 mg PO Q4HR PRN #15 tab PRN Reason: Severe Pain (Level 7-10) Ibuprofen [Motrin] 600 mg PO Q6HR #30 tab Furosemide [Lasix] 40 mg PO DAILY #4 tab Diet: Regular Shower Restrictions: No Instruction Topics: C Section Dc, Depression No Smoking: If you smoke, Please STOP! Call for help. Follow-up with: Nighat Valdes MD [Provider Admit Priv/Credential] -
--- NOTE | 2023-11-25 09:05 | DISCHARGE SUMMARY ---
Discharge Summary Admit Date: 11/20/23 Discharge Date: 11/25/23 Discharging Provider: Joseph Michael MD Code Status: Attempt Resuscitation Condition at Discharge: Good Discharge Disposition: 01 Home, Self Care - DIAGNOSES Admission Diagnoses: Preeclampsia with severe features Intrahepatic cholestasis of 36 weeks gestation - HPI History of Present Illness: Subjective Patient reports she is doing well. Lochia appropriate. Denies heavy bleeding. Ambulating. Pelvic and abdominal pain well-controlled. Tolerating oral intake. Diet: Regular. Voiding without difficulty. Passing flatus. Denies BM. Patient is bonding with baby in room Bowel feeding going well Denies feeling lightheaded, dizzy or excessively fatigued. Objective General: Alert, oriented, no apparent distress. Cardiovascular: Regular rate. Regular rhythm. Lungs: No increased work of breathing. Abdomen: Uterus firm. Below umbilicus. No guarding or rebound. Extremities: No pain on palpation. No cords palpated. Distal pulses intact. Incision: Clean, dry, and intact. - HOSPITAL COURSE Hospital Course: Patient was admitted at 36 weeks gestation for preeclampsia with severe features. She was started on magnesium and induction was started but did not progress past 3.5 cm. She was then taken back for failure to progress for a primary section. She did have initially need to control blood pressures with oral labetalol. After section, she had 24 hours of magnesium. She was initially switched to oral nifedipine, but blood pressure were difficult to control, so she was returned to oral labetalol which had good effect in controlling her blood pressure. She felt well and was discharged with her on day 3. She was given strict warning signs for signs of worsening preeclampsia and will follow-up with [facility] in several days for blood pressure evaluation. - ALLERGIES Allergies/Adverse Reactions: Allergies Allergy/AdvReac Type Severity Reaction Status Date / Time No Known Drug Allergies Allergy Verified 02/25/23 18:11 - MEDICATIONS Home Medications: Ambulatory Orders Medication Instructions Recorded Confirmed Gabapentin [Neurontin] 100 mg PO DAILY 04/18/21 04/18/21 168/Iron/Folic/Omega3 04/18/21 [One-A-Day -1 Softgel] Ondansetron Odt [Zofran Odt] 4 mg TL Q6H PRN #20 tablet 04/19/21 Promethazine Supp [Phenergan Supp] 25 mg MT Q6HR PRN #20 supp 04/19/21 Promethazine Supp [Phenergan Supp] 25 mg MT Q6HR PRN #15 supp 02/25/23 Ferrous Sulfate [Feosol] 325 mg PO DAILY #90 tablet 10/27/23 Docusate Sodium 100Mg Capsule 200 mg PO BID cap 11/25/23 [Colace 100Mg Capsule] Furosemide [Lasix] 40 mg PO DAILY #4 tab 11/25/23 Ibuprofen [Motrin] 600 mg PO Q6HR #30 tab 11/25/23 Labetalol [Trandate] 200 mg PO BID #90 tablet 11/25/23 Venlafaxine [Effexor] 75 mg PO DAILY@1700 tab 11/25/23 oxyCODONE [Roxicodone] 5 mg PO Q4HR PRN #15 tab 11/25/23 - LABS Result Diagrams: 11/23/23 06:06 11/22/23 13:30 - FOLLOW UP Follow Up: Follow-up with Nighat Valdes MD at [facility] week. - TIME SPENT Time Spent in Discharge (Minutes): 20
[2023-11-25] MEDS: DOCUSATE SODIUM 100 MG CAPSULE PO SCH (10:42)
[2023-11-25] MEDS: FUROSEMIDE 40 MG TABLET PO SCH (10:43)
[2023-11-25] MEDS: LABETALOL 100 MG TABLET PO SCH (10:43)
[2023-11-25] MEDS: FERROUS GLUCONATE 324 MG TABLET PO SCH (10:43)
[2023-11-25] MEDS: PRENATAL VITAMIN TABLET PO SCH (10:43)
[2023-11-25 13:53] VITALS: BP 130/82; O2SAT 97
[2023-11-25] MEDS: oxyCODONE 5 MG TABLET PO PRN (13:58)
--- NOTE | 2023-11-25 20:19 | Labor Flowsheet ---
Labor Flowsheet Datetime Report Generated by CPN: 11/25/2023 20:19 Datetime: 11/22/2023 07:10 Communication Comments: Report given in OR to Pascale Elam RN. Patient care relinquished. Datetime: 11/22/2023 06:50 Patient Care Comments: Patient transported via bed from 2102 to OR in stable condition. Datetime: 11/22/2023 06:49 Contraction Comments: IUPC removed. Datetime: 11/22/2023 06:39 Antibiotics: Other Antibiotic @ 500 Medication Comments: Azithromyocin 500 mg/250 ml NS IV infusion started Datetime: 11/22/2023 06:33 Anesthesia Comments: Kesha Parr CRNA at bedside discussing POC and dosing epidural for C/S. Datetime: 11/22/2023 06:30 VITAL SIGNS NBP Sys/Rosario/Mean (mmHg): 150 : 103 : 114 Pulse: 81 UTERINE ACTIVITY Monitor Mode: Internal Frequency (min): 4-6.5 Duration (sec): 80-100 Pattern: Normal: <= 5 Contractions in 10 Minutes FHR Baseline Rate : 135 Variability: Moderate 6-25 bpm Accelerations: 15X15 Decelerations: None LaborFlag: Labor Datetime: 11/22/2023 06:15 COMMUNICATION Communication: RN Reviewed Strip Datetime: 11/22/2023 06:09 SpO2 (%): 97 Datetime: 11/22/2023 05:54 Analgesics/Sedatives: Tylenol (mg) @ 1000 Datetime: 11/22/2023 05:46 MEDICATIONS Pitocin (milliunits): Discontinued Datetime: 11/22/2023 05:13 VAGINAL EXAM Dilatation (cm): 3.5 Effacement (%): 90 Station: -2 Exam by: Earnestine Yousif RN Vaginal Bleeding: Normal Show Cervix, Consistency: Soft Cervix, Position: Midposition Datetime: 11/22/2023 04:50 Resting Tone IUP (mmHg): 25 Intensity IUP (mmHg): 75-85 Datetime: 11/22/2023 04:00 Pitocin Checklist: At Least 1 Acceleration of 15 bpm x 15 Seconds in 30 Minutes or Adequate Variabi lity; No More than 2 Variable Decelerations > 60 Seconds in Duration and decreasing >60 bpm in 30 min utes; No More than 5 Uterine Contractions in 10 Minutes for any 20 Minute Interval; Uterus Palpates S oft between Contractions; IUPC Resting Tone less than 25 mmHg Datetime: 11/22/2023 03:30 MONTEVIDEO UNITS (Computed) Contractions in Ten Minutes: 3 IUPC Average Intensity: 75 IUPC Average Resting Tone: 25 [place] Units (mmHg): 150 ASSESSMENT A Monitor Mode: External US Datetime: 11/22/2023 03:26 Patient Position/Activity: Left Lateral Datetime: 11/22/2023 02:50 Respirations: 16 Temperature (C): 36.9 MATERNAL ASSESSMENT Level of Consciousness: Alert DTR's/Clonus: DTRs 2+; No Clonus Headache: Denies Nausea/Vomiting: Denies RUQ Epigastric Pain: Denies Datetime: 11/22/2023 02:12 Monitor Interventions for UA: IUPC Inserted Datetime: 11/22/2023 02:11 Membrane Status: Ruptured Membranes Rupture Method: Artificial Amniotic Fluid Color: Clear Amniotic Fluid Amount: Small Amniotic Fluid Odor: None Vaginal Exam Comments: unchanged Datetime: 11/22/2023 00:00 Quality: Mild Resting Tone (Palpate): Relaxed Datetime: 11/21/2023 22:31 PAIN Pain Scale: 0 Pain Presence: None/Denies Pain Type: N/A LEIJA'S SCORE Dilatation (cm): 3-4 cms Effacement: >80_ effaced Station: minus 2 Consistency: Soft Position: Midposition Total Leija's Score: 9 : 9-14 = Usually no failure for induction PRE-INDUCTION CHECKLIST Orders on Chart: Yes H Record Available: Yes Indication Charted: Yes Adequate Pelvis Charted: Yes EFW Documented: Yes Gestational Age Documented: Yes Consent Signed and on Chart: Yes Provider with C/S Priv Aware: Yes Status of Cervix Documented: Yes Presentation Documented: Yes 30min of Monitoring Prior: Yes 2 Accels of 15X15 Present: Yes No Late Decels Present: Yes Less than 2 Variable Decels: Yes Pt Meets Criteria for Induction: Yes I/O Interventions: Barnes Cath Inserted Datetime: 11/21/2023 22:24 Magnesium/Antihypertensives: Magnesium Sulfate IV (Gm/hr) @ (Annotations: 1.5 g/hr) Datetime: 11/21/2023 21:26 Epidural Procedure: Cath Placed Datetime: 11/21/2023 21:00 Comments: Patient sitting up for epidural, MHT audible Datetime: 11/21/2023 20:29 Antiemetics/Antacids: Reglan 10 mg IV Datetime: 11/21/2023 20:19 PROCEDURE TIME OUT Procedure Verify: Correct Patient Identity; Correct Side and Site are Marked; Accurate Procedure Co nsent Form; Agreement on Procedure to be Done; Correct Patient Position; Relevant Images and Results are Properly Labeled and Displayed; Addressed Need to Administer Antibiotics or Fluids for Irrigation ; Safety Precautions Based on Patient History or Medication Use ANESTHESIA Anesthesia Plans: Epidural Datetime: 11/21/2023 19:30 Category: Category I Datetime: 11/21/2023 19:14 Pain Location: Abdomen; Head Pain Coping: Requesting Pain Medication or Epidural Pain Assessment Comments: Discussed POC with patient. All patient questions answered and concerns a ddressed at this time. Patient requesting epidural prior to beginning pitocin. Datetime: 11/21/2023 13:30 Provider Notified (Name): Dr. Valdes Datetime: 11/21/2023 10:50 Hygiene: Linens Changed Datetime: 11/21/2023 09:10 Actions for Decelerations: Side to Side Datetime: 11/21/2023 08:49 Cervical Ripening Agents: Cytotec @ 25 Datetime: 11/21/2023 08:06 Stage of : VS obtained by Sissy Bower RN Temperature Route: Oral Datetime: 11/21/2023 07:04 Monitor Interventions for FHR: Ultrasound Adjusted Datetime: 11/21/2023 06:11 PATIENT CARE IV/Blood Work: IV Started; Labs Drawn with IV Start Datetime: 11/21/2023 02:02 Vital Sign Comments: Djust BP cuff and placed arm rest. slight right tilt, BP cuff on right arm Datetime: 11/21/2023 01:21 Pain Relief Measures: Pain Medication Given Datetime: 11/20/2023 21:00 Breath Sounds, Left: Clear and Equal Breath Sounds, Right: Clear and Equal Datetime: 10/24/2023 12:42 Membranes Ruptured Date/Time: 11/22/2023 08:26
== END 2023-11-25 19:40 | disposition home or self-care (01) | DRG 786 ==
LOC: WFO 17:13 → FBP 17:14 → WFO 18:25 → FBP 18:26
PROVIDERS: ADMIT Obstetrics & Gynecology; ATTEND Obstetrics & Gynecology
PROC: 3E0DXGC Introduction of Other Therapeutic Substance into Mouth and Pharynx, External Approach (ICD-10-PCS; 2023-11-20)
PROC: 3E033VJ Introduction of Other Hormone into Peripheral Vein, Percutaneous Approach (ICD-10-PCS; 2023-11-21)
PROC: 0UB20ZX Excision of Bilateral Ovaries, Open Approach, Diagnostic (ICD-10-PCS; 2023-11-22)
PROC: 10907ZC Drainage of Amniotic Fluid, Therapeutic from Products of Conception, Via Natural or Artificial Opening (ICD-10-PCS; 2023-11-22)
PROC: 10H07YZ Insertion of Other Device into Products of Conception, Via Natural or Artificial Opening (ICD-10-PCS; 2023-11-22)
PROC: 10D00Z1 Extraction of Products of Conception, Low, Open Approach (ICD-10-PCS; principal; 2023-11-22 07:00)
DX: O14.14 Severe pre-eclampsia complicating childbirth (principal); K83.1 Obstruction of bile duct; E87.1 Hypo-osmolality and hyponatremia; D62 Acute posthemorrhagic anemia; O60.14X0 Preterm labor third trimester with preterm delivery third trimester, not applicable or unspecified; O26.643 Intrahepatic cholestasis of pregnancy, third trimester; O62.1 Secondary uterine inertia; Z3A.36 36 weeks gestation of pregnancy; Z37.0 Single live birth; O99.214 Obesity complicating childbirth; O99.892 Other specified diseases and conditions complicating childbirth; R11.2 Nausea with vomiting, unspecified; O76 Abnormality in fetal heart rate and rhythm complicating labor and delivery; O90.81 Anemia of the puerperium; N80.103 Endometriosis of bilateral ovaries, unspecified depth
CPT/HCPCS: 36415; 59025; 80053; 83735; 84443; 84550; 85025; 85027; 86850; 86900; 86901; 86920; 99215; A9270; J0131; J1650; J2372; J2765; J2795; J2916; J7120; Q0162; J3475

== ENCOUNTER 2024-06-20 06:28 | Day surgery (SDC) | payer MEDICAID ==
[2024-06-20] MEDS: LACTATED RINGERS 1,000 ML IV ONE ×2 (06:34→08:11)
[2024-06-20] MEDS ORDERED: ceFAZolin 2 GM VIAL ONE (06:35)
[2024-06-20 07:01] LABS: HCG UR QUAL NEGATIVE
--- NOTE | 2024-06-20 07:10 | ANESTHESIA ---
Pre-Anesthesia VS, & Labs - Diagnosis interstitial cystitis - Procedure cysto with microdissection Height: 5 ft 7 in Weight (kg): 102.5 kg Body Mass Index: 35.4 BMI Classification: Obese - NPO >8 hours - Is Patient ?: No Home Medications and Allergies Home Medications: Ambulatory Orders Albuterol Sulf [Ventolin Hfa Inhaler] 1 - 2 puffs INH Q4HR PRN 06/10/24 Montelukast [Singulair] 10 mg PO QPM 06/10/24 SUMAtriptan [Sumatriptan] 5 mg NS ONCE PRN 06/10/24 Venlafaxine [Effexor] 150 mg PO DAILY 06/10/24 Albuterol Sulf [Ventolin Hfa Inhaler] 1 - 2 puffs INH Q4HR PRN 06/10/24 Montelukast [Singulair] 10 mg PO QPM 06/10/24 SUMAtriptan [Sumatriptan] 5 mg NS ONCE PRN 06/10/24 Venlafaxine [Effexor] 150 mg PO DAILY 06/10/24 Allergies/Adverse Reactions: Allergies Allergy/AdvReac Type Severity Reaction Status Date / Time No Known Drug Allergies Allergy Verified 06/17/24 13:38 Anes History & Medical History - Anesthetic History Anesthesia Complications: reports: No previous complications - Medical History Cardiovascular: reports: None Pulmonary: reports: Asthma Gastrointestinal: reports: GERD, Cholelithiasis Urinary: reports: Other Musculoskeletal: reports: Fibromyalgia, Chronic back pain Endocrine/Autoimmune: reports: None Blood Disorders: reports: None Skin: reports: None Smoking Status: Never smoker - Surgical History Gynecologic: reports: section, Endometrial ablation Exam General: Alert, Oriented x3 Dental: WNL Mouth Opening: Greater than 4 Fingerbreadths Neck Mobility: Normal Mallampati classification: II Thyromental Distance: greater than 6 cm Respiratory: Lungs clear Cardiovascular: Regular rate Plan Anesthesia Type: General Consent for Procedure(s) Verified and Reviewed: Yes Code Status: Attempt Resuscitation ASA classification: 2-Mild systemic disease Is this case an emergency?: No
[2024-06-20] MEDS ORDERED: iohexoL-240 10 ML VIAL IVP ONE (07:11)
[2024-06-20] MEDS ORDERED: LIDOCAINE 2% URO-JET 5 ML SYRINGE UR ONE (07:11)
[2024-06-20] MEDS ORDERED: fentaNYL 100 MCG/2 ML VIAL IVP PRN (07:13)
[2024-06-20] MEDS ORDERED: MORPHINE 2 MG/ML CARPUJECT IVP PRN (07:13)
[2024-06-20] MEDS ORDERED: ONDANSETRON 4 MG/2 ML VIAL IVP PRN ×2 (07:13→08:09)
[2024-06-20] MEDS ORDERED: METOCLOPRAMIDE 10 MG/2 ML VIAL IVP PRN (07:13)
[2024-06-20] MEDS ORDERED: ATROPINE ABBOJECT 1 MG/10 ML SYRINGE IVP PRN (07:13)
[2024-06-20] MEDS ORDERED: ePHEDrine 50 MG/ML VIAL IVP PRN (07:13)
[2024-06-20] MEDS ORDERED: HYDROmorphone 0.5 MG/0.5 ML SYRINGE IVP PRN (07:13)
[2024-06-20] MEDS ORDERED: NALOXONE 0.4 MG/ML VIAL IVP PRN (07:13)
[2024-06-20] MEDS ORDERED: fentaNYL 100 MCG/2 ML VIAL ONE (07:21)
[2024-06-20] MEDS ORDERED: LIDOCAINE-PF 2% 10 ML AMP SUBQ ONE (07:21)
[2024-06-20] MEDS ORDERED: MIDAZOLAM 2 MG/2 ML VIAL ONE (07:21)
[2024-06-20] MEDS ORDERED: PROPOFOL 200 MG/20 ML VIAL IVP ONE (07:21)
[2024-06-20] MEDS ORDERED: ONDANSETRON 4 MG/2 ML VIAL ONE (07:48)
[2024-06-20] MEDS ORDERED: DEXAMETHASONE 4 MG/ML VIAL ONE (07:48)
[2024-06-20] MEDS ORDERED: LACTATED RINGERS 1,000 ML IV SCH (08:00)
[2024-06-20] MEDS: DIMETHYL SULFOXIDE IS ONE (08:13)
[2024-06-20] MEDS: LIDOCAINE 2% URO-JET 5 ML SYRINGE UR ONE (08:13)
--- NOTE | 2024-06-20 08:16 | Discharge Plan ---
Discharge Plan Problem Reviewed?: Yes Disposition: Home, Self Care Condition: Good Prescriptions: Docusate Sodium 100Mg Capsule [Colace 100Mg Capsule] 100 mg PO DAILY #7 cap oxyBUTYnin chloride [Oxybutynin Chloride ER] 5 mg PO DAILY #7 tab Phenazopyridine HCl [Pyridium] 200 mg PO TID #9 tablet oxyCODONE [Roxicodone] 5 mg PO Q4H PRN #6 tablet PRN Reason: Pain Diet: Regular Activity Restrictions: No Restrictions Shower Restrictions: No Driving Restrictions: No Instruction Topics: Hydrodistention Cystoscopy Additional Instructions or Follow Up instructions: You will be contacted for follow-up in roughly [address] Nicole No Smoking: If you smoke, Please STOP! Call for help. Follow-up with: Abdulaziz Nicole MD [Provider Admit Priv/Credential] -
--- NOTE | 2024-06-20 08:18 | OPERATIVE REPORT ---
Operative Report - General Procedure Date: 06/20/24 Planned Procedure: Cystoscopy, hydrodistention Pre-Op Diagnosis: Bladder pain Procedure Performed: Cystoscopy, hydrodistention Post Op Diagnosis: Bladder pain - Procedure Note Primary Surgeon: Corey Anesthesia Provider: MIRZA Mackey Anesthesia Technique: General LMA Pathology: none Estimated Blood Loss (mL): 0 Findings: 650cc bladder - Other Other Information/Narrative: After informed consent was obtained patient brought the OR and laid the supine position. The patient was anesthetized per anesthesia protocols and prepped draped in usual sterile fashion in the dorsolithotomy position. A formal timeout was performed confirming patient, procedure. A 22 Vietnamese scope was Sweeney ease into urinary bladder. Bladder inspected and full there were no masses, lesions or other concerns. Her urethra was normal. Her bladder was then emptied. It was then filled with normal saline to 100 cm of water pressure. This was held for 5 minutes. The bladder was emptied and this effluent and measured at 650 cc. This procedure was repeated. There were no glomerulations or bleeding noted. No Hunner's lesions were noted. 50 cc of DMSO was instilled into the bladder and along with a Uro-Jet. This concluded the procedure the patient tolerated procedure well She will go home today and follow-up in 6 weeks time
[2024-06-20] MEDS ORDERED: HYDROcod/ACETAM 5/325 MG TABLET ONE (08:44)
[2024-06-20] MEDS: HYDROcod/ACETAM 5/325 MG TABLET PO PRN (08:49)
[2024-06-20 08:59] VITALS: O2SAT 100
[2024-06-20 09:23] VITALS: BP 139/90
--- NOTE | 2024-06-20 12:25 | ANESTHESIA POST OP EVALUATION ---
Anesthesia Post Eval - Post Anesthesia Eval Vitals: Last Vital Signs Temp 36.2 C L 06/20/24 09:00 Pulse 73 06/20/24 09:00 Resp 15 06/20/24 09:00 BP 139/90 H 06/20/24 09:00 Pulse Ox 100 06/20/24 09:00 O2 Flow Rate CV Function Including HR & BP: Stable Pain Control: Satisfactory Nausea & Vomiting: Negative Mental Status: Baseline Respiratory Status: Airway Patent Hydration Status: Satisfactory Anesthesia Complications: None
== END 2024-06-20 06:29 | disposition home or self-care (01) ==
LOC: SDS 06:28
PROVIDERS: ATTEND Urology
DX: N30.10 Interstitial cystitis (chronic) without hematuria (principal); E66.9 Obesity, unspecified; Z68.35 Body mass index [BMI] 35.0-35.9, adult; J45.909 Unspecified asthma, uncomplicated
CPT/HCPCS: 52260; 81025; A9270; C1758; J1212; J7120; Q9966